=== PATIENT | female | born 1935 | race Caucasian/White ===

== ENCOUNTER 2016-05-03 14:11 | Emergency (ER) | payer OTHER ==
[2016-05-03 14:20] VITALS: TEMP 98.2; O2SAT 94
--- NOTE | 2016-05-03 15:39 | EDPHY ---
H & P Stated Complaint: bleeding R ant thigh;pt states may be varicosity & she may have bumped it Time Seen by Provider: 05/03/16 15:01 HPI/ROS: CHIEF COMPLAINT: Bleeding HISTORY OF PRESENT ILLNESS: The patient is a 80-year-old female who comes to the emergency department complaining small punctate bleeding to the anterior right thigh. She has a small varicosity at the site. She thinks she may have bumped it against something. She cannot get it to stop after holding pressure for an hour. In triage she was wrapped with Surgicel and is now stopped the bleeding. She does not take blood thinners. She has not had any recent illnesses. REVIEW OF SYSTEMS: Constitutional: denies: chills, fever, recent illness, recent injury EENTM: denies: blurred vision, double vision, nose congestion Respiratory: denies: cough, shortness of breath Cardiac: denies: chest pain, irregular heart rate, lightheadedness, palpitations Gastrointestinal/Abdominal: denies: abdominal pain, diarrhea, nausea, vomiting, blood streaked stools Genitourinary: denies: dysuria, frequency, hematuria, pain Musculoskeletal: denies: joint pain, muscle pain Skin: See HPI Neurological: denies: headache, numbness, paresthesia, tingling, dizziness, weakness Hematologic/Lymphatic: denies: blood clots, easy bleeding, easy bruising Immunologic/allergic: denies: HIV/AIDS, transplant EXAM: GENERAL: Well-appearing, well-nourished and in no acute distress. HEAD: Atraumatic, normocephalic. EYES: Pupils equal round and reactive to light, extraocular movements intact, sclera anicteric, conjunctiva are normal. ENT: TMs normal, nares patent, oropharynx clear without exudates. Moist mucous membranes. NECK: Normal range of motion, supple without lymphadenopathy or JVD. LUNGS: Breath sounds clear to auscultation bilaterally and equal. No wheezes rales or rhonchi. HEART: Regular rate and rhythm without murmurs, rubs or gallops. ABDOMEN: Soft, nontender, normoactive bowel sounds. No guarding, no rebound. No masses appreciated. BACK: No CVA tenderness, no spinal tenderness, step-offs or deformities EXTREMITIES: Normal range of motion, no pitting or edema. No clubbing or cyanosis. NEUROLOGICAL: Cranial nerves II through XII grossly intact. Normal speech, normal gait. 5/5 strength, normal movement in all extremities, normal sensation PSYCH: Normal mood, normal affect. SKIN: Small bruising abrasion from right anterior thigh over very small varicosity. Dressed with Surgicel and stop the restarted again once as remove the Surgicel. Source: Patient Exam Limitations: No limitations - Personal History Current Tetanus Diphtheria and Acellular Pertussis (TDAP): Yes - Medical/Surgical History Hx Asthma: No Hx Chronic Respiratory Disease: No Hx Diabetes: No Hx Cardiac Disease: No Hx Renal Disease: No Hx Cirrhosis: No Other PMH: cholesterol. HTN. depression - Family History Significant Family History: Hypertension - Social History Smoking Status: Never smoked Alcohol Use: None Drug Use: None Constitutional: Initial Vital Signs Temperature (C) 36.8 C 05/03/16 14:13 Heart Rate 61 05/03/16 14:13 Respiratory Rate 28 H 05/03/16 14:13 Blood Pressure 136/81 H 05/03/16 14:13 O2 Sat (%) 94 05/03/16 14:13 O2 Delivery Mode Room Air Allergies/Adverse Reactions: No Known Allergies Allergy (Verified 05/03/16 14:12) Home Medications: Medication Instructions Recorded Aspirin [Aspirin 81mg (*)] 81 mg PO DAILY 05/03/16 Metoprolol Tartrate [Lopressor 50 50 mg PO 05/03/16 mg (*)] Sertraline HCl [Zoloft 25mg (*)] 25 mg PO DAILY 05/03/16 Simvastatin [Zocor] 40 mg PO 05/03/16 Medical Decision Making ED Course/Re-evaluation: The patient's bleeding had stopped on tell I removed the Surgicel. We cleaned and redressed it. We discussed wound care and management and indications for returning. The patient is happy with this plan declines further workup and is eager to go home. Differential Diagnosis: Partial list of the Differential diagnosis considered include but were not limited to; abrasion, varicosity bleed, coagulopathy and although unlikely based on the history and physical exam, I also considered the medication reaction, infection. I discussed these differential diagnoses and the plan with the patient as well as the usual and expected course. The patient understands that the diagnosis is provisional and that in medicine we are not always correct and that further workup is often warranted. Usual and customary warnings were given. All of the patient's questions were answered. The patient was instructed to return to the emergency department should the symptoms at all worsen or return, otherwise to followup with the physician as we discussed. Departure - Departure Disposition: Home, Routine, Self-Care Clinical Impression: Abrasion Condition: Good Instructions: Abrasion (ED) Additional Instructions: Leave the dressing intact for at least 24 hours. Referrals: Altagracia Abdullahi MD [Primary Care Provider] - As per Instructions
[2016-05-03 16:56] VITALS: BP 134/76; PULSE 64; RESP 20
== END 2016-05-03 16:55 | disposition home or self-care (01) ==
DX: S70.311A Abrasion, right thigh, initial encounter (principal); I10 Essential (primary) hypertension; Z79.82 Long term (current) use of aspirin; X58.XXXA Exposure to other specified factors, initial encounter

== ENCOUNTER → 2016-06-27 | Outpatient (CLI) | payer OTHER ==
[~2016-06-27] MED LIST: GADOBUTROL 10 ML VIAL IVP ONE
[2016-06-27 14:05] LABS: CREATININE 0.7 mg/dL (0.6-1.0); GLOMERULAR FILTRATION RATE > 60
== END ==
LOC: FIMAGING 11:38
PROVIDERS: ATTEND Psychiatry & Neurology Neurology
DX: R26.0 Ataxic gait (principal); M47.12 Other spondylosis with myelopathy, cervical region; M50.322 Other cervical disc degeneration at C5-C6 level; M50.323 Other cervical disc degeneration at C6-C7 level; M54.9 Dorsalgia, unspecified; M48.06 Spinal stenosis, lumbar region; M47.894 Other spondylosis, thoracic region
CPT/HCPCS: 70553; 72141; 72146; 72148; A9585

== ENCOUNTER → 2016-12-21 | Outpatient (CLI) | payer OTHER | LOC: CIMAGING 14:21 | PROVIDERS: ATTEND Internal Medicine | DX: Z12.31 Encounter for screening mammogram for malignant neoplasm of breast (principal) | CPT/HCPCS: G0202 ==

== ENCOUNTER 2018-01-03 11:50 | Emergency (ER) | payer OTHER ==
--- NOTE | 2018-01-03 12:38 | EDPHY ---
H & P Stated Complaint: Right thigh pain Time Seen by Provider: 01/03/18 12:38 HPI/ROS: CHIEF COMPLAINT: Right thigh pain HISTORY OF PRESENT ILLNESS: The patient presents the ED with a 1 day history of right thigh pain. The patient denies any history of fall or trauma. She denies prior history of the symptoms. The patient's symptoms are worsened with palpation and movement. The patient denies any recent immobility. She denies prior history of PE or DVT. She denies any acute numbness or weakness. The patient denies any complaints of fever or additional acute medical issues. REVIEW OF SYSTEMS: A comprehensive 10 point review of systems is otherwise negative aside from elements mentioned in the history of present illness. Source: Patient - Personal History Current Tetanus/Diphtheria Vaccine: Yes - Medical/Surgical History Hx Asthma: No Hx Chronic Respiratory Disease: No Hx Diabetes: No Hx Cardiac Disease: No Hx Renal Disease: No Hx Cirrhosis: No Hx Alcoholism: No Other PMH: cholesterol. HTN. depression - Social History Smoking Status: Never smoked - Physical Exam Exam: General Appearance: Alert, no distress Eyes: Pupils equal and round no pallor or injection ENT, Mouth: Mucous membranes moist Respiratory: There are no retractions, lungs are clear to auscultation Cardiovascular: Regular rate and rhythm Gastrointestinal: Abdomen is soft and nontender, no masses, bowel sounds normal Neurological: A&O, normal motor function, normal sensory exam, normal cranial nerves Skin: Warm and dry, no rashes Musculoskeletal: No right calf tenderness appreciated, mild tenderness to palpation along the right quadriceps mechanism Extremities: symmetrical, full range of motion Constitutional: Initial Vital Signs Temperature (C) 36.6 C 01/03/18 11:53 Heart Rate 66 01/03/18 11:53 Respiratory Rate 18 01/03/18 11:53 Blood Pressure 160/72 H 01/03/18 11:53 O2 Sat (%) 94 01/03/18 11:53 O2 Delivery Mode Room Air Allergies/Adverse Reactions: No Known Allergies Allergy (Verified 01/03/18 11:58) Home Medications: Medication Instructions Recorded Aspirin [Aspirin 81mg (*)] 81 mg PO DAILY 05/03/16 Metoprolol Tartrate [Lopressor 50 50 mg PO 05/03/16 mg (*)] Sertraline HCl [Zoloft 25mg (*)] 25 mg PO DAILY 05/03/16 Simvastatin [Zocor] 40 mg PO 05/03/16 Medical Decision Making - Diagnostics Imaging Results: Imaging Impressions Extremity Venous Study 01/03/18 12:39 Impression: No deep venous thrombosis right leg. Findings and recommendations discussed with Emergency Department physician, Abdelrahman Elizondo at 13:15 hour, 01/03/2018. Final report concurs with initial preliminary interpretation. ED Course/Re-evaluation: The patient was taken for an ultrasound. It demonstrates no evidence of a DVT. The patient has brisk pulses noted clinically. She is neurologically intact. There is no clinical evidence of a cellulitis, abscess or septic arthritis. I do believe the patient is experiencing a myofascial strain. She will be discharged home with customary aftercare instructions and return precautions. Differential Diagnosis: Differential diagnosis considered includes cellulitis, abscess, DVT, arterial thrombosis Departure - Departure Disposition: Home, Routine, Self-Care Clinical Impression: Muscle strain, lower leg Qualifiers: Encounter type: initial encounter Laterality: right Qualified Code(s): S86.911A - Strain of unspecified muscle(s) and tendon(s) at lower leg level, right leg, initial encounter Condition: Good Instructions: Musculoskeletal Pain (ED) Additional Instructions: 1. Apply heating pack and ice for symptomatic treatment. 2. Tylenol and ibuprofen as needed for pain. 3. Return to the ED for markedly worsening pain, swelling, numbness, redness or other concerns. 4. Please follow up with Dr. Devine in 2 weeks for any ongoing symptoms. A repeat ultrasound may be indicated if your symptoms persist. Referrals: Carito Zamarripa MD [Primary Care Provider] - As per Instructions
[2018-01-03 13:27] VITALS: BP 128/60
== END 2018-01-03 13:39 | disposition home or self-care (01) ==
DX: S76.311A Strain of muscle, fascia and tendon of the posterior muscle group at thigh level, right thigh, initial encounter (principal); X58.XXXA Exposure to other specified factors, initial encounter; Y99.8 Other external cause status

== ENCOUNTER 2018-03-05 16:20 | Inpatient (IN) | payer OTHER ==
[2018-03-05] MEDS ORDERED: LIDOCAINE 4%/MENTHOL 1% PATCH TD ONE (17:41)
[2018-03-05] MEDS ORDERED: NS 1,000 ML IV ONE (17:43)
[2018-03-05] MEDS ORDERED: ONDANSETRON 4 MG/2 ML VIAL IVP ONE (17:48)
[2018-03-05] MEDS ORDERED: NS 2,300 ML IV ONE (17:56)
--- NOTE | 2018-03-05 18:00 | EDPHY ---
H & P Stated Complaint: surgical complication, abdomen Time Seen by Provider: 03/05/18 17:47 HPI/ROS: CHIEF COMPLAINT: Wound dehiscence and drainage HISTORY OF PRESENT ILLNESS: The patient is an 82-year-old female with a history of ovarian cancer and several abdominal surgeries. She was hospitalized 2 weeks ago for small-bowel obstruction and ended up having surgery for lysis of adhesions, partial omentectomy and ventral hernia repair. She was then discharged to the [facility]. 2 days ago she was followed up by Dr. Feliz' office. She had some drainage and had the the 2 lower addi removed and a Sia drain placed. He also started her on antibiotics. Will today her drainage has increased and has turned brown and foul smelling. She has not had a fever. Severity: Moderate Modifying factors: The none REVIEW OF SYSTEMS: Constitutional: denies: chills, fever, recent illness, recent injury EENTM: denies: blurred vision, double vision, nose congestion Respiratory: denies: cough, shortness of breath Cardiac: denies: chest pain, irregular heart rate, lightheadedness, palpitations Gastrointestinal/Abdominal: See HPI Genitourinary: denies: dysuria, frequency, hematuria, pain Musculoskeletal: denies: joint pain, muscle pain Skin: denies: lesions, rash, jaundice, bruising Neurological: denies: headache, numbness, paresthesia, tingling, dizziness, weakness Hematologic/Lymphatic: denies: blood clots, easy bleeding, easy bruising Immunologic/allergic: denies: HIV/AIDS, transplant 10 systems reviewed and negative except as noted EXAM: GENERAL: Well-appearing, well-nourished and in no acute distress. HEAD: Atraumatic, normocephalic. EYES: Pupils equal round and reactive to light, extraocular movements intact, sclera anicteric, conjunctiva are normal. ENT: TMs normal, nares patent, oropharynx clear without exudates. Moist mucous membranes. NECK: Normal range of motion, supple without lymphadenopathy or JVD. LUNGS: Breath sounds clear to auscultation bilaterally and equal. No wheezes rales or rhonchi. HEART: Regular rate and rhythm without murmurs, rubs or gallops. ABDOMEN: Wound open over last few cm, brownish foul-smelling drainage. The no erythema at the wound. Moderately diffuse tender abdomin. BACK: No CVA tenderness, no spinal tenderness, step-offs or deformities EXTREMITIES: Normal range of motion, no pitting or edema. No clubbing or cyanosis. NEUROLOGICAL: Cranial nerves II through XII grossly intact. Normal speech, normal gait. 5/5 strength, normal movement in all extremities, normal sensation , normal reflexes PSYCH: Normal mood, normal affect. SKIN: Warm, dry, normal turgor, no visible rashes or lesions. Source: Patient, Family, Old records - Personal History Current Tetanus/Diphtheria Vaccine: Unsure - Medical/Surgical History Hx Asthma: No Hx Chronic Respiratory Disease: No Hx Diabetes: No Hx Cardiac Disease: No Hx Renal Disease: No Hx Cirrhosis: No Hx Alcoholism: No Hx HIV/AIDS: No Hx Splenectomy or Spleen Trauma: No Other PMH: cholesterol. HTN. depression - Family History Significant Family History: No pertinent family hx - Social History Smoking Status: Never smoked Alcohol Use: None Drug Use: None Constitutional: Initial Vital Signs Temperature (C) 36.9 C 03/05/18 16:29 Heart Rate 71 03/05/18 16:29 Respiratory Rate 16 03/05/18 16:29 Blood Pressure 106/76 03/05/18 16:29 O2 Sat (%) 95 03/05/18 16:29 O2 Delivery Mode Nasal Cannula O2 (L/minute) 4 Allergies/Adverse Reactions: No Known Allergies Allergy (Verified 01/03/18 11:58) Home Medications: Medication Instructions Recorded Aspirin [Aspirin 81mg (*)] 81 mg PO HS 05/03/16 Simvastatin [Zocor] 40 mg PO HS 05/03/16 Docusate Sodium [Colace 100 MG (*)] 100 mg PO DAILY 02/18/18 Levothyroxine [Synthroid 25 mcg 25 mcg PO DAILY06 #0 02/18/18 (*)] Bupropion HBr [Aplenzin] 348 mg PO DAILY 02/20/18 Metoprolol Tartrate [Lopressor 100 100 mg PO BID 02/20/18 mg (*)] Multivitamins [Multivitamin (*)] 1 tab PO DAILY 02/20/18 Sertraline HCl [Zoloft 100mg (*)] 100 mg PO DAILY 02/20/18 Enoxaparin [Lovenox 40 MG (*)] 40 mg SC DAILY syr 02/26/18 Ondansetron Odt [Zofran Odt 4 mg 4 mg PO Q6HRS PRN tab 02/26/18 (*)] Acetaminophen [Tylenol 325mg (*)] 650 mg PO Q4 PRN 03/05/18 Herbals/Supplements -Info Only 1 ea PO DAILY 03/05/18 Melatonin [Melatonin 3 MG (*)] 3 mg PO HS 03/05/18 Sulfamethox/Tmp 800/160 mg 1 tab PO BID 03/05/18 [Bactrim Ds] traMADol [Ultram 50 mg (*)] 50 mg PO Q4 PRN 03/05/18 Medical Decision Making - Diagnostics Imaging Results: Imaging Impressions Abdomen CT 03/05/18 18:02 Impression: 1. Large right intraabdominal fluid collection with layering gas and fluid. Differential diagnosis includes abscess, contained bowel leak with succus in the peritoneal space, and less likely seroma. 2. No mechanical bowel obstruction or adynamic ileus. 3. New mild to moderate right hydronephrosis due to mass effect upon the distal right ureter by the fluid collection. 4. Extensive sigmoid diverticulosis. No acute diverticulitis. Findings discussed with the emergency department physician, Enrico Page MD on March 05, 2018 at 1957 hours. ED Course/Re-evaluation: The patient is a difficult IV stick. I placed a right IJ peripheral line with ultrasound guidance. Patient tolerated the procedure well. Lab work is being drawn. 8:00 p.m. I discussed the case again with Dr. Feliz who will review the images. He evaluated the patient previously. He recommends admission to the hospital service for comorbidities. He also requested Invanz. 8:02 p.m. I spoke with Dr. Johnson who will admit to the medical service. Differential Diagnosis: Partial list of the Differential diagnosis considered include but were not limited to; fistula, perforation, wound infection, dehiscence and although unlikely based on the history and physical exam, I also considered ischemia, dissection. - Data Points Laboratory Results: Laboratory Results 03/05/18 18:25 03/05/18 18:25 03/05/18 03/05/18 03/05/18 18:25 18:25 18:25 WBC 13.42 10^3/uL H 10^3/uL (3.80-9.50) RBC 3.12 10^6/uL L 10^6/uL (4.18-5.33) Hgb 9.6 g/dL L g/dL (12.6-16.3) Hct 28.9 % L % (38.0-47.0) MCV 92.6 fL fL (81.5-99.8) MCH 30.8 pg pg (27.9-34.1) MCHC 33.2 g/dL g/dL (32.4-36.7) RDW 14.5 % % (11.5-15.2) Plt Count 414 10^3/uL H 10^3/uL (150-400) MPV 9.6 fL fL (8.7-11.7) Neut % (Auto) Not Reported Lymph % (Auto) Not Reported [place] % (Auto) Not Reported Eos % (Auto) Not Reported Baso % (Auto) Not Reported Nucleat RBC Rel Count Not Reported Absolute Neuts (auto) Not Reported Absolute Lymphs (auto) Not Reported Absolute Monos (auto) Not Reported Absolute Eos (auto) Not Reported Absolute Basos (auto) Not Reported Absolute Nucleated RBC Not Reported Immature Gran % Not Reported Seg Neutrophils % 80.0 % % Band Neutrophils % 6.0 % % Lymphocytes % 9.0 % % Monocytes % 5.0 % % Eosinophils % 0.0 % % Basophils % 0.0 % % Metamyelocytes % 0.0 % % Myelocytes % 0.0 % % Promyelocytes % 0.0 % % Blast Cells % 0.0 % % Immature Gran # Not Reported Absolute Seg Neuts 10.74 10^3/uL H 10^3/uL (1.70-6.50) Absolute Band Neuts 0.81 10^3/uL H 10^3/uL (0.00-0.70) Absolute Lymphocytes 1.21 10^3/uL 10^3/uL (1.00-3.00) Absolute Monocytes 0.67 10^3/uL 10^3/uL (0.30-0.80) Absolute Eosinophils 0.00 10^3/uL L 10^3/uL (0.03-0.40) Absolute Basophils 0.00 10^3/uL L 10^3/uL (0.02-0.10) Absolute Metamyelocyte 0.00 10^3/mL 10^3/mL (0.00-0.00) Absolute Myelocytes 0.00 10^3/mL 10^3/mL (0.00-0.00) Absolute Promyelocytes 0.00 10^3/uL 10^3/uL (0.00-0.00) Absolute Plasma Cells 0.00 10^3/uL 10^3/uL (0.00-0.00) Nucleated RBCs 1.0 /100 WBC H /100 WBC (0-0) Absolute Blast Cells 0.00 10^3/uL 10^3/uL (0.00-0.00) Plasma Cells % 0.0 % % Platelet Estimate INCREASED H (ADEQ) Polychromasia 1+ H Hypochromasia 1+ H Oval Macrocytes 1+ H Echinocytes 1+ H PT 17.1 SEC H SEC (12.0-15.0) INR 1.38 H (0.83-1.16) APTT 32.4 SEC SEC (23.0-38.0) VBG Lactic Acid Sodium 131 mEq/L L mEq/L (135-145) Potassium 4.1 mEq/L mEq/L (3.3-5.0) Chloride 101 mEq/L mEq/L (97-110) Carbon Dioxide 26 mEq/l mEq/l (22-31) Anion Gap 4 mEq/L L mEq/L (6-14) BUN 16 mg/dL mg/dL (7-23) Creatinine 0.5 mg/dL L mg/dL (0.6-1.0) Estimated GFR > 60 Glucose 65 mg/dL L mg/dL (70-100) Calcium 7.6 mg/dL L mg/dL (8.5-10.4) Total Bilirubin 0.4 mg/dL mg/dL (0.1-1.4) 03/05/18 18:25 WBC RBC Hgb Hct MCV MCH MCHC RDW Plt Count MPV Neut % (Auto) Lymph % (Auto) [place] % (Auto) Eos % (Auto) Baso % (Auto) Nucleat RBC Rel Count Absolute Neuts (auto) Absolute Lymphs (auto) Absolute Monos (auto) Absolute Eos (auto) Absolute Basos (auto) Absolute Nucleated RBC Immature Gran % Seg Neutrophils % Band Neutrophils % Lymphocytes % Monocytes % Eosinophils % Basophils % Metamyelocytes % Myelocytes % Promyelocytes % Blast Cells % Immature Gran # Absolute Seg Neuts Absolute Band Neuts Absolute Lymphocytes Absolute Monocytes Absolute Eosinophils Absolute Basophils Absolute Metamyelocyte Absolute Myelocytes Absolute Promyelocytes Absolute Plasma Cells Nucleated RBCs Absolute Blast Cells Plasma Cells % Platelet Estimate Polychromasia Hypochromasia Oval Macrocytes Echinocytes PT INR APTT VBG Lactic Acid 1.4 mmol/L mmol/L (0.7-2.1) Sodium Potassium Chloride Carbon Dioxide Anion Gap BUN Creatinine Estimated GFR Glucose Calcium Total Bilirubin Medications Given: Hydromorphone HCl (Dilaudid) 0.2 - 0.4 mg IVP Q4HRS PRN PRN Reason: Pain, Severe Unable to Take PO Stop: 03/15/18 21:53 Last Admin: 03/05/18 22:13 Dose: 0.4 mg Sodium Chloride (Ns) 2,300 mls @ 383.3333 mls/hr 30 ml/kg infuse over 6 hr ( 2300 ml) IV EDNOW ONE PRN Reason: Protocol Stop: 03/05/18 23:55 Last Admin: 03/05/18 18:33 Dose: 2,300 mls Miscellaneous Information (Patch Removal) 1 ea TD DAILY21 JULIUS Stop: 09/01/18 20:59 Last Admin: 03/05/18 17:45 Dose: Not Given Discontinued Medications Hydromorphone HCl (Dilaudid) 0.5 mg IVP EDNOW ONE Stop: 03/05/18 20:01 Last Admin: 03/05/18 20:00 Dose: 0.5 mg Sodium Chloride (Ns) 1,000 mls @ 0 mls/hr IV EDNOW ONE; Wide Open PRN Reason: Protocol Stop: 03/05/18 17:44 Last Admin: 03/05/18 17:45 Dose: 1,000 mls Ertapenem 1 gm/ Sodium (Chloride) 100 mls @ 200 mls/hr IV EDNOW ONE PRN Reason: Protocol Stop: 03/05/18 19:05 Last Admin: 03/05/18 18:59 Dose: 100 mls Miscellaneous Medication (Icy Hot Lidocaine/Menthol 4%/1% Patch) 1 patch TD EDNOW ONE Stop: 03/05/18 17:42 Last Admin: 03/05/18 17:45 Dose: 1 patch Ondansetron HCl (Zofran) 4 mg IVP EDNOW ONE Stop: 03/05/18 17:49 Last Admin: 03/05/18 17:50 Dose: 4 mg Departure - Departure Disposition: [facility]patient Acute Clinical Impression: Surgical wound infection Condition: Fair
[2018-03-05] MEDS ORDERED: ERTAPENEM 1 GM in NS 100 ML IV ONE (18:36)
[2018-03-05 18:43] LABS: PLATELET COUNT 414 10^3/uL (150-400)
[2018-03-05 18:50] LABS: INR 1.38 (0.83-1.16); PROTIME(PATIENT) 17.1 SEC (12.0-15.0)
[2018-03-05] MEDS ORDERED: IOPAMIDOL (ISOVUE-300) 100 ML BTL ONE (18:52)
[2018-03-05] MEDS ORDERED: KETOROLAC 15 MG/1 ML SDV ONE (19:53)
[2018-03-05] MEDS ORDERED: HYDROmorphONE/DILAUDID 2 MG/ML INJ ONE (19:59)
[2018-03-05] MEDS ORDERED: HYDROmorphONE/DILAUDID 2 MG/ML INJ IVP ONE (20:00)
[2018-03-05] MEDS ORDERED: PATCH REMOVAL 1 EA PATCH TD SCH (21:00)
--- NOTE | 2018-03-05 21:18 | SOAPPROG ---
AJITH Progress Note Assessment/Plan: Assessment: 82-YEAR-OLD FEMALE 2 WEEKS STATUS POST SMALL BOWEL RESECTION AFTER SBO WITH EXTENSIVE ADHESIOLYSIS AND RESECTION PRESENTS NOW WITH THE WOUND DRAINAGE BUT CT REVEALS A DEEPER RIGHT FLANK ABSCESS PROBABLY ADJACENT TO PREVIOUS ANASTOMOSIS HEENT NONICTERIC WITHOUT ADENOPATHY CHEST CLEAR COR REGULAR RHYTHM ABDOMEN SOFT DISTENDED WITH A DRAINING MIDLINE INCISION WITH A ELIZABETH DRAIN. SHE FEELS FLUCTUANT IN THE RIGHT FLANK WITH SOME TENDERNESS BUT DOES HAVE BOWEL SOUNDS IMPRESSION INTRA-ABDOMINAL ABSCESS CAUSING A WOUND ABSCESS Plan: ANTIBIOTICS/NPO/IV FLUIDS AND PERCUTANEOUS ABSCESS DRAINAGE/ SHE MAY NEED SURGERY DEPENDING ON THE DRAINAGE FINDINGS 03/05/18 21:15 Objective: Vital Signs Temp Pulse Resp BP Pulse Ox 36.7 C 82 18 128/70 H 95 03/05/18 18:34 03/05/18 20:52 03/05/18 20:52 03/05/18 20:52 03/05/18 20:52 03/04/18 03/05/18 03/06/18 05:59 05:59 05:59 Intake Total 3500 Output Total 50 Balance 3450 PT 17.1 SEC (12.0-15.0) H 03/05/18 18:25 INR 1.38 (0.83-1.16) H 03/05/18 18:25 ICD10 Worksheet Patient Problems: Problems Problem Status Onset Surgical wound infection Acute Bowel obstruction Acute
[2018-03-05] MEDS ORDERED: PHYTONADIONE 10 MG in NS 50 ML IV ONE (21:36)
[2018-03-05] MEDS ORDERED: ONDANSETRON 4 MG/2 ML VIAL IVP PRN (21:38)
[2018-03-05] MEDS ORDERED: ONDANSETRON DISINTEGRATING 4 MG TAB PO PRN (21:54)
[2018-03-05] MEDS: HYDROmorphONE/DILAUDID 1 MG/ML INJ IVP PRN (22:13)
--- NOTE | 2018-03-05 22:32 | GHP ---
DATE OF ADMISSION: 03/05/2018 CHIEF COMPLAINT: Increasing wound drainage. HISTORY OF PRESENT ILLNESS: This is an 82-year-old female who has a history of ovarian cancer. She is 2 weeks postop from a bowel obstruction requiring a small laparotomy and small-bowel resection and hernia repair. She was discharged on the . She had been doing okay. She has had more abdomina l distention and drainage. She did see Dr. Feliz as an outpatient and a Sia drain was placed. A ntibiotics were started. Drainage has increased and it seems to be foul-smelling. She denies any fe vers. She has some mild abdominal pain. No nausea. She had decreased p.o. intake. No diarrhea. REVIEW OF SYSTEMS: A 10-point review of systems was obtained and was negative. PAST MEDICAL HISTORY: 1. Ovarian cancer status post multiple surgeries. 2. Hypertension. 3. Hyperlipidemia. 4. Hypothyroidism. 5. Depression. MEDICATIONS: Reviewed. SOCIAL HISTORY: No smoking. FAMILY HISTORY: Reviewed and noncontributory. PHYSICAL EXAMINATION: VITAL SIGNS: Afebrile, blood pressure is 128/70, heart rate 82, oxygen satura tion 95% on 4 L. GENERAL APPEARANCE: The patient is well developed, in no apparent distress. HEENT : Nonicteric sclerae. Extraocular movements intact. Moist mucous membranes. NECK: Supple. No th yromegaly. LUNGS: Good effort. Clear to auscultation bilaterally. CARDIOVASCULAR: Regular rate a nd rhythm. No murmurs or gallops. ABDOMEN: Midline incision in place, positive bowel sounds, soft, really not a lot of weight tenderness. There is an open drainage site in the lower abdominal wound with some purulent drainage. EXTREMITIES: No clubbing, cyanosis, or edema. SKIN: Without rash. D ry and intact. NEUROLOGIC: Alert and oriented x3. Moving all 4 extremities equally. PSYCHIATRIC: Normal mood and affect. PERTINENT LABORATORY AND X-RAY DATA: White blood cell count elevated at 13, hemoglobin is 9.6, and p latelets are 414. Lipase normal. Sodium a little bit low at 131. CT scan of the abdomen and pelvis shows a large intra-abdominal fluid collection which could possibly be an abscess, and new mild to m oderate right hydronephrosis due to mass effect of the fluid. ASSESSMENT AND PLAN: An 82-year-old female with a history of ovarian cancer status post recent small bowel resection due to small bowel obstruction presenting with increasing fluid collection. 1. Fluid collection: This could possibly be an abscess. There is increased purulent drainage. She does have an elevated white blood cell count. We will treat with IV Invanz. The plan will be for I nterventional Radiology to drain in the morning. We will wait follow up blood cultures. 2. History of ovarian cancer. 3. Right-sided hydronephrosis: Kidney function is normal. We will continue to monitor. Fluid is r emoved. /[id number]/MODL
[2018-03-06] MEDS: D5W 1/2 NS W/ 20 KCl/L 1,000 ML IV SCH ×2 (00:33→18:03)
[2018-03-06] MEDS: FLUCONAZOLE/NaCl 100 ML IV SCH ×2 (00:57→22:44)
[2018-03-06] MEDS: HYDROmorphONE/DILAUDID 1 MG/ML INJ IVP PRN ×3 (03:17→16:42)
[2018-03-06 04:46] LABS: PLATELET COUNT 418 10^3/uL (150-400)
[2018-03-06] MEDS ORDERED: ERTAPENEM 1 GM in NS 100 ML IV SCH (09:00)
[2018-03-06] MEDS ORDERED: MIDAZOLAM 2 MG/2 ML VIAL IVP PRN (09:53)
[2018-03-06] MEDS ORDERED: fentaNYL 100 MCG/2 ML INJ IVP PRN (09:53)
[2018-03-06] MEDS ORDERED: GLUCAGON HCL 1 MG VIAL IVP PRN (09:53)
[2018-03-06] MEDS ORDERED: MEPERIDINE 25 MG/ML SYR IVP PRN (09:53)
[2018-03-06] MEDS ORDERED: NALOXONE HCL 0.4 MG/ML INJ IVP PRN (09:53)
[2018-03-06] MEDS ORDERED: FLUMAZENIL 0.5 MG/5 ML MDV IVP PRN (09:53)
[2018-03-06] MEDS ORDERED: NS 1,000 ML IV SCH (10:00)
[2018-03-06] MEDS ORDERED: traMADol 50 MG TAB PO PRN (11:38)
--- NOTE | 2018-03-06 12:17 | PDPROPOC ---
Sedation Plan of Care ASA Classification: ASA 3 Mallampati Score: Class 2 Mallampati Reference Image:
--- NOTE | 2018-03-06 12:19 | PDRADPN ---
Radiology Procedure Note Date of Procedure: 03/06/18 Radiologist: Raman Willard Anesthesia: IV Sedation Pre-op Diagnosis: RLQ abscess Post-op Diagnosis: Same Procedure: CT guided drain placement Finding(s): 10F drain placed in collection, feculent material aspirated Inf/Abcess present in the surg proc area at time of surgery?: Yes Depth: Deep Incisional (Fascial)
[2018-03-06] MEDS ORDERED: ALTEPLASE 2 MG VIAL IVP PRN (13:17)
--- NOTE | 2018-03-06 14:33 | PDMN ---
Medical Necessity Medical necessity: MCG MGSIC Systemic or Infectious Condition: 82 yo w/ recent SBO surgery (resection) 2nd ovarian ca, presents w/ fluid collection, possibly abscess and increased purulent drainage to surgical site. WBC elevated, IR consulted, drain placement completed and feculent material aspirated. Pt will cont on IV antibx and IV antifungals and IVF, wound and BC pending, ID consult ordered, PT/OT evals ordered, cont to monitor labs, pt will require>2MN for ongoing monitoring and tx of the above. Hx ovarian ca s/p multi surgeries, HTN , HLD
--- NOTE | 2018-03-06 15:09 | SOAPPROG ---
AJITH Progress Note Assessment/Plan: Assessment: 82-YEAR-OLD FEMALE 2 WEEKS STATUS POST SMALL BOWEL RESECTION AFTER SBO WITH EXTENSIVE ADHESIOLYSIS AND RESECTION PRESENTS NOW WITH THE WOUND DRAINAGE BUT CT REVEALS A DEEPER RIGHT FLANK ABSCESS PROBABLY ADJACENT TO PREVIOUS ANASTOMOSIS HEENT NONICTERIC WITHOUT ADENOPATHY CHEST CLEAR COR REGULAR RHYTHM ABDOMEN SOFT DISTENDED WITH A DRAINING MIDLINE INCISION WITH A ELIZABETH DRAIN. SHE FEELS FLUCTUANT IN THE RIGHT FLANK WITH SOME TENDERNESS BUT DOES HAVE BOWEL SOUNDS IMPRESSION INTRA-ABDOMINAL ABSCESS CAUSING A WOUND ABSCESS Plan: ANTIBIOTICS/NPO/IV FLUIDS AND PERCUTANEOUS ABSCESS DRAINAGE/ SHE MAY NEED SURGERY DEPENDING ON THE DRAINAGE FINDINGS 03/05/18 21:15 03/06/18 15:06 OR COMFORTABLE THIS A.M./VITAL SIGNS STABLE/AFEBRILE CONTINUED WOUND DRAINAGE REQUIRING FREQUENT DRESSING CHANGES WBC 10 K /HEMATOCRIT 28 CT-GUIDED DRAINAGE DEPENDING/RISKS AND OPTIONS FULLY DISCUSSED/ SHE IS STILL VERY LIKELY TO NEED SURGERY FOR CORRECTION OF THE PROBLEM BUT DRAINAGE IN CONTROL OF HER SEPSIS IS DESIRABLE 1ST/WILL ORDER A PICC LINE AND TPN Objective: Vital Signs Temp Pulse Resp BP Pulse Ox 36.7 C 89 14 129/58 H 94 03/06/18 13:08 03/06/18 15:05 03/06/18 15:05 03/06/18 15:05 03/06/18 15:05 Microbiology 03/06/18 01:15 Gram Stain - Final Abdomen - Swab Laboratory Results 03/06/18 03:56 03/06/18 03:56 03/05/18 03/06/18 03/07/18 05:59 05:59 05:59 Intake Total 650 Output Total 550 80 Balance 100 -80 PT 17.1 SEC (12.0-15.0) H 03/05/18 18:25 INR 1.38 (0.83-1.16) H 03/05/18 18:25 ICD10 Worksheet Patient Problems: Problems Problem Status Onset Surgical wound infection Acute Bowel obstruction Acute
--- NOTE | 2018-03-06 15:33 | HOSPPROG ---
Hospitalist Progress Note Assessment/Plan: * Intra-abdominal abscess s/o IR drain -feculent material - suspect anastomotic leak -IV ceftriaxone, IV flagyl, IV diflucan -Dr. Feliz following * Klebsiella sepsis - leukocytosis/tachycardia with acute respiratory failure -consult ID * Ovarian cancer s/p recent SBO with SB resection * Acute respiratory failure -up to 12L O2, RR 24, mod respiratory distress -check stat CXR -transfer to SDU for closer monitoring CC time - 45 minutes Subjective: no new complaints. Objective: Vital Signs Temp Pulse Resp BP Pulse Ox 36.7 C 89 14 129/58 H 94 03/06/18 13:08 03/06/18 15:05 03/06/18 15:05 03/06/18 15:05 03/06/18 15:05 Microbiology 03/06/18 01:15 Gram Stain - Final Abdomen - Swab Laboratory Results 03/06/18 03:56 03/06/18 03:56 03/05/18 03/06/18 03/07/18 05:59 05:59 05:59 Intake Total 650 Output Total 550 80 Balance 100 -80 PT 17.1 SEC (12.0-15.0) H 03/05/18 18:25 INR 1.38 (0.83-1.16) H 03/05/18 18:25 using IV dilaudid for pain CT abd - positive for abscess - Physical Exam Constitutional: no apparent distress, appears nourished, not in pain Cardiovascular: regular rate and rhythym, no murmur, rub, or gallop Respiratory: no respiratory distress, no rales or rhonchi, clear to auscultation Gastrointestinal: normoactive bowel sounds, soft, non-tender abdomen, no palpable masses, distension, other (draining feculent material) Skin: no rashes or abrasions, no fluctuance, no induration Neurologic: AAOx3, sensation intact bilaterally Psychiatric: interacting appropriately, not anxious, not encephalopathic, thought process linear ICD10 Worksheet Patient Problems: Problems Problem Status Onset Surgical wound infection Acute Bowel obstruction Acute
[2018-03-06] MEDS ORDERED: D10W 1,000 ML IV PRN (16:16)
[2018-03-06 17:07] LABS: PLATELET COUNT 369 10^3/uL (150-400)
--- NOTE | 2018-03-06 17:17 | SOAPPROG ---
AJITH Progress Note Assessment/Plan: Assessment: 82-YEAR-OLD FEMALE 2 WEEKS STATUS POST SMALL BOWEL RESECTION AFTER SBO WITH EXTENSIVE ADHESIOLYSIS AND RESECTION PRESENTS NOW WITH THE WOUND DRAINAGE BUT CT REVEALS A DEEPER RIGHT FLANK ABSCESS PROBABLY ADJACENT TO PREVIOUS ANASTOMOSIS HEENT NONICTERIC WITHOUT ADENOPATHY CHEST CLEAR COR REGULAR RHYTHM ABDOMEN SOFT DISTENDED WITH A DRAINING MIDLINE INCISION WITH A ELIZABETH DRAIN. SHE FEELS FLUCTUANT IN THE RIGHT FLANK WITH SOME TENDERNESS BUT DOES HAVE BOWEL SOUNDS IMPRESSION INTRA-ABDOMINAL ABSCESS CAUSING A WOUND ABSCESS Plan: ANTIBIOTICS/NPO/IV FLUIDS AND PERCUTANEOUS ABSCESS DRAINAGE/ SHE MAY NEED SURGERY DEPENDING ON THE DRAINAGE FINDINGS 03/05/18 21:15 03/06/18 15:06 OR COMFORTABLE THIS A.M./VITAL SIGNS STABLE/AFEBRILE CONTINUED WOUND DRAINAGE REQUIRING FREQUENT DRESSING CHANGES WBC 10 K /HEMATOCRIT 28 CT-GUIDED DRAINAGE DEPENDING/RISKS AND OPTIONS FULLY DISCUSSED/ SHE IS STILL VERY LIKELY TO NEED SURGERY FOR CORRECTION OF THE PROBLEM BUT DRAINAGE IN CONTROL OF HER SEPSIS IS DESIRABLE 1ST/WILL ORDER A PICC LINE AND TPN 03/06/18 17:14 SUCCESSFUL DRAINAGE OF THICK PURULENT MATERIAL FROM RIGHT FLANK/PATIENT FEELS BETTER AND REMAINS AFEBRILE/HOWEVER BLOOD CULTURES ARE POSITIVE/SOME INCREASED OXYGEN NEEDS/CHEST X-RAY MAY SHOW RIGHT PLEURAL EFFUSION SHE STILL VERY LIKELY WILL NEED SURGERY BUT HOPEFULLY THIS WILL CONTROL HER INFECTION A MAKER BETTER FOR EVENTUAL SURGERY 03/06/18 17:16 Objective: Vital Signs Temp Pulse Resp BP Pulse Ox 37.0 C 101 H 20 141/66 H 92 03/06/18 16:53 03/06/18 16:53 03/06/18 16:53 03/06/18 16:53 03/06/18 16:53 Microbiology 03/06/18 01:15 Gram Stain - Final Abdomen - Swab Laboratory Results 03/06/18 16:51 03/05/18 03/06/18 03/07/18 05:59 05:59 05:59 Intake Total 650 Output Total 550 320 Balance 100 -320 PT 17.1 SEC (12.0-15.0) H 03/05/18 18:25 INR 1.38 (0.83-1.16) H 03/05/18 18:25 ICD10 Worksheet Patient Problems: Problems Problem Status Onset Surgical wound infection Acute Bowel obstruction Acute
[2018-03-06 17:30] LABS: INR 1.21 (0.83-1.16); PROTIME(PATIENT) 15.5 SEC (12.0-15.0)
[2018-03-06] MEDS: PIPERACILLIN/TAZO 3.375 GM/DEX 50 ML IV SCH (19:45)
[2018-03-06] MEDS: ATORVASTATIN CALCIUM 20 MG TAB PO SCH (20:05)
[2018-03-06] MEDS: METOPROLOL TARTRATE 100 MG TAB PO SCH (20:05)
[2018-03-06] MEDS: MELATONIN 3 MG TAB PO SCH (20:05)
--- NOTE | 2018-03-06 20:43 | ASMTCMCOM ---
CM Note CM Note Notes: Reviewed chart. Pt admitted for fluid collection and right sided hydronephrosis. 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 Pt was admitted from [facility]. Spoke with pt's dghtr Yany Tinajero . Per Yany, [facility] is holding a bed for the pt. [facility], spoke with Josy, Housing Officer on Duty. Per Josy, is holding pt's bed "unofficially" d/t low census. Per Janina, the deckhand oyster dredge, [facility] will continue to hold pt's bed until they need it for another pt. Family is not being charged for the bed hold and will notify Yany when/if they need the room. Update provided to Yany. Discharge plan remains unclear. Pt transferred to SDU this evening secondary to increased oxygen demands. Call placed to Yany with an update. CM will continue to follow. Discharge Plan: [facility] Date Signed: 03/06/2018 08:42 PM Electronically Signed By:Nella Canas RN
[2018-03-06] MEDS ORDERED: ASPIRIN 81 MG CHEWABLE TAB PO SCH (21:00)
[2018-03-07] MEDS: PIPERACILLIN/TAZO 3.375 GM/DEX 50 ML IV SCH ×4 (00:10→17:41)
[2018-03-07] MEDS: LEVOTHYROXINE 25 MCG TAB PO SCH (05:22)
[2018-03-07] MEDS: D5W 1/2 NS W/ 20 KCl/L 1,000 ML IV SCH ×2 (05:33→18:22)
[2018-03-07 05:45] LABS: PLATELET COUNT 388 10^3/uL (150-400)
[2018-03-07 05:52] LABS: INR 1.25 (0.83-1.16); PROTIME(PATIENT) 15.9 SEC (12.0-15.0)
[2018-03-07] MEDS: HYDROmorphONE/DILAUDID 1 MG/ML INJ IVP PRN (07:36)
[2018-03-07] MEDS: oxyCODONE IR 5 MG TAB PO PRN ×2 (08:12→23:37)
[2018-03-07] MEDS: SERTRALINE HCL 100 MG TAB PO SCH (08:13)
[2018-03-07] MEDS: METOPROLOL TARTRATE 100 MG TAB PO SCH ×2 (08:13→20:26)
[2018-03-07] MEDS ORDERED: ENOXAPARIN 40 MG/0.4 ML SYR SC SCH (09:00)
--- NOTE | 2018-03-07 10:30 | SOAPPROG ---
AJITH Progress Note Assessment/Plan: Assessment: 82 y/o F s/p recent open small bowel resection, partial omentectomy, and JUAN JOSE last hospitalization Now admitted with deep right flank abscess. S/p percutaneous drainage with thick purulent material S: Sitting up in chair. Feeling better today. Tolerating a regular diet and having BMs. O: Alert Afebrile VSS RRR No increased WOB Abdomen: soft, slightly ttp, superficial wound at inferior aspect of incision with nicol drain in place. Ostomy appliance over nicol with purulent drainage. Deeper JULISSA drain with seropurulent drainage. Plan: Pt will need surgery to fully clean out abscess. Will wait until later this week when she is stronger. 03/07/18 10:31 Objective: Vital Signs Temp Pulse Resp BP Pulse Ox 36.4 C 77 23 H 121/52 H 94 03/07/18 07:12 03/07/18 08:13 03/07/18 07:12 03/07/18 08:13 03/07/18 07:12 Microbiology 03/06/18 11:45 Gram Stain - Final Abdomen - Aspirate 03/06/18 01:15 Gram Stain - Final Abdomen - Swab Laboratory Results 03/07/18 05:30 03/07/18 05:30 03/06/18 03/07/18 03/08/18 05:59 05:59 05:59 Intake Total 650 2634 Output Total 550 1345 Balance 100 1289 PT 15.9 SEC (12.0-15.0) H 03/07/18 05:30 INR 1.25 (0.83-1.16) H 03/07/18 05:30 ICD10 Worksheet Patient Problems: Problems Problem Status Onset Surgical wound infection Acute Bowel obstruction Acute
[2018-03-07] MEDS: BUPROPION HBR PO SCH (12:15)
[2018-03-07] MEDS: ONDANSETRON 4 MG/2 ML VIAL IVP PRN ×2 (12:15→16:28)
--- NOTE | 2018-03-07 14:13 | GCON ---
INFECTIOUS DISEASE CONSULTATION DATE OF CONSULTATION: 03/07/2018 REFERRING PHYSICIAN: Dorina Reynolds MD REASON FOR CONSULTATION: Intraabdominal abscess. HISTORY OF PRESENT ILLNESS: Patient is an 82-year-old female with a past medical history of ovarian cancer and small bowel obstruction who I am asked to see in consultation for intraabdominal abscess. Patient had undergone surgery for a small bowel obstruction on 02/19/2018, where she had lysis of ad hesions and small bowel resection measuring approximately 1 foot with irfv-hy-dgab anastomosis. Miroslava ent describes developing drainage from her wound several days postoperatively. She describes this as being "icky" with malodor. There was noted to be erythema around the incision as well. On 03/02/20 18, she had some old hematoma removed and Sia drain placed by Dr. Feliz. She received treatment with oral Bactrim. Patient continued to have purulent drainage, prompting CT scan of the abdomen and pelvis, which revealed a large right intraabdominal fluid collection with gas present measuring 11 x 6 cm x 12 cm. This was contiguous with anastomotic site. Patient subsequently had interventional radiology guided drainage of abscess with return of feculent material. Gram stain of the specimen showed 4+ gram-negative rods, 4+ gram-positive rods, and 1+ gra m-positive cocci with culture currently pending. 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 The patient also had blood cultures obtained at time of presentation and 1 o f 2 sets shows Klebsiella oxytoca. Patient has been receiving antibiotic therapy and currently is on Zosyn, metronidazole and fluconazole. She notes that she feels improved post abscess drainage. She describes having malaise and fatigue pr ior to hospitalization, but no guy fever or chills. She was also having nausea without vomiting or diarrhea. She did note abdominal pain. Ultimately plans are in place for surgical revision given c oncern of anastomotic leak. Based on the above findings, I am now asked to assist in her ongoing man agement. PAST MEDICAL HISTORY: Ovarian cancer, hypertension, alcoholism (has not been drinking for approximat gia 8 years), depression, hyperlipidemia, sleep apnea. PAST SURGICAL HISTORY: Left knee replacement, multiple surgeries for ovarian cancer, as above. CURRENT MEDICATIONS: Zosyn 3.375 g IV q.6 h., metronidazole 500 mg IV q.8 h., fluconazole 200 mg IV daily, aspirin 81 mg p.o. q.h.s., Lipitor 20 mg p.o. q.h.s., Colace 100 mg p.o. daily, Lovenox 40 mg subcu daily, Dilaudid as needed, Synthroid 25 mcg p.o. daily, melatonin 3 mg p.o. q.h.s., Lopressor 1 00 mg p.o. b.i.d., bupropion 348 mg p.o. daily, TPN, Zoloft 100 mg p.o. daily. ALLERGIES: No known drug allergies. SOCIAL HISTORY: Patient is a former smoker with history of alcoholism, without active alcohol intake . No history of drug use. FAMILY HISTORY: Depression, Alzheimer disease. REVIEW OF SYSTEMS: Outside that noted in the HPI, the remainder of 10-system review is unremarkable. PHYSICAL EXAMINATION: VITAL SIGNS: Temperature 36.4, heart rate 77, respiratory rate 23, blood pres sure 121/52, oxygen saturation 94% on 2 L. GENERAL: Patient is an obese female who appears chronica lly ill. She appears nontoxic. HEENT: There is no scleral icterus, conjunctival injection, or conj unctival petechiae. Oropharynx shows dry mucous membranes with no thrush. Dentition in fair repair. There is no nasal discharge. There is no tenderness over the frontal, maxillary, or mastoid area. NECK: Supple without lymphadenopathy or palpable thyromegaly. Right EJ IV is in place. CHEST: Cl ear to auscultation bilaterally without adventitious sounds. Respiratory effort is normal. CARDIOVA SCULAR: Regular rate and rhythm without murmurs, gallops, or rubs. ABDOMEN: Soft, tender in the ri [facility] lower quadrant with mild fullness; staple line is intact, except for ostomy bag over lower portio n with feculent drainage; JULISSA bulb was in place with feculent drainage. Bowel sounds are hypoactive. MUSCULOSKELETAL: 1+ lower extremity edema bilaterally. Well-healed incision over left knee without erythema or drainage. SKIN: No rashes present. No stigmata of endocarditis. Skin is warm and dry to touch. NEUROLOGIC: Patient is alert and interacts appropriately with examiner. Cranial nerves 2-12 are grossly intact. Muscle tone and bulk are normal. LABORATORY/IMAGING: White blood cell count 7.0, hematocrit 26.0, platelets 388, neutrophils 78%. Se rum creatinine 0.4. Bilirubin 0.4, AST 18, ALT 23, alkaline phosphatase 63, albumin 1.8. INR is 1.3 . Blood cultures from 03/05/2018 showing 1 of 2 sets with Klebsiella oxytoca. Abdominal wound cultu re showing lactose fermenting gram-negative rods. Abdominal abscess with polymicrobial Gram stain an d culture pending as outlined in the history of present illness. Imaging as outlined in history of present illness, which has been reviewed and interpreted by me jean paul christianson IMPRESSION: Klebsiella oxytoca bacteremia, secondary to intraabdominal abscess, post small bowel obs truction requiring laparotomy and resection of small bowel with anastomosis with concern for underlyi ng anastomotic leak: The patient has undergone percutaneous drainage of intraabdominal abscess with culture showing polymicrobial anshul and material being feculent in etiology. Typical enteric anshul w ould be expected in this circumstance. Will continue Zosyn, which will provide good activity against Klebsiella, as well as other intraabdominal pathogens, including anaerobes. Will discontinue metron idazole given the anaerobic activity present with Zosyn. We will continue fluconazole given risk for the presence of yeast. Surgical plans outlined probable repeat operative intervention as patient im proves clinically post abscess drainage given concerns of anastomotic leak. RECOMMENDATIONS: 1. Agree with Zosyn 3.375 g IV q.6 h. 2. Continue fluconazole 200 mg IV daily. 3. Discontinue metronidazole. 4. Await susceptibility profile on Klebsiella. 5. Follow up abscess cultures as available. 6. Thank you for this consultation. We will continue to follow the patient with you. /[id number]/LEAL
--- NOTE | 2018-03-07 16:13 | HOSPPROG ---
Hospitalist Progress Note Assessment/Plan: * Intra-abdominal abscess s/p IR drain -feculent material - suspect anastomotic leak -IV Zosyn, IV diflucan -surgery with Dr. Feliz pending * Klebsiella sepsis - leukocytosis/tachycardia with acute respiratory failure -sepsis physiology improved today * Ovarian cancer s/p recent SBO with SB resection * Acute respiratory failure -resp status improved today Subjective: Stool coming out of abdominal drain Objective: Vital Signs Temp Pulse Resp BP Pulse Ox 37.4 C 84 26 H 132/56 H 93 03/07/18 15:49 03/07/18 15:49 03/07/18 15:49 03/07/18 15:49 03/07/18 15:49 Microbiology 03/06/18 11:45 Mycobacterial Smear (UZAIR) - Final Abdomen - Aspirate 03/06/18 11:45 Gram Stain - Final Abdomen - Aspirate 03/06/18 01:15 Gram Stain - Final Abdomen - Swab Laboratory Results 03/07/18 05:30 03/07/18 05:30 03/06/18 03/07/18 03/08/18 05:59 05:59 05:59 Intake Total 650 2634 Output Total 550 1345 150 Balance 100 1289 -150 PT 15.9 SEC (12.0-15.0) H 03/07/18 05:30 INR 1.25 (0.83-1.16) H 03/07/18 05:30 d/w Dr. Morrissey regarding antibiotic plan tele reviewed - NSR - Physical Exam Constitutional: no apparent distress, appears nourished, not in pain Cardiovascular: regular rate and rhythym, no murmur, rub, or gallop Respiratory: no respiratory distress, no rales or rhonchi, clear to auscultation Gastrointestinal: normoactive bowel sounds, soft, non-tender abdomen, no palpable masses Skin: no rashes or abrasions, no fluctuance, no induration Neurologic: AAOx3, sensation intact bilaterally Psychiatric: interacting appropriately, not anxious, not encephalopathic, thought process linear ICD10 Worksheet Patient Problems: Problems Problem Status Onset Bowel obstruction Acute Surgical wound infection Acute
[2018-03-07] MEDS: MELATONIN 3 MG TAB PO SCH (20:26)
[2018-03-07] MEDS: ATORVASTATIN CALCIUM 20 MG TAB PO SCH (20:26)
[2018-03-07] MEDS: TPN W/ FAMOTIDINE 1 EA BAG IV SCH (21:01)
[2018-03-07] MEDS: FLUCONAZOLE/NaCl 100 ML IV SCH (21:11)
[2018-03-08] MEDS: PIPERACILLIN/TAZO 3.375 GM/DEX 50 ML IV SCH ×2 (00:15→05:42)
[2018-03-08] MEDS: HYDROmorphONE/DILAUDID 1 MG/ML INJ IVP PRN ×3 (00:20→11:53)
[2018-03-08 04:54] LABS: INR 1.36 (0.83-1.16); PROTIME(PATIENT) 16.9 SEC (12.0-15.0)
[2018-03-08] MEDS: LEVOTHYROXINE 25 MCG TAB PO SCH (05:41)
[2018-03-08] MEDS: METOPROLOL TARTRATE 100 MG TAB PO SCH ×2 (09:55→21:00)
[2018-03-08] MEDS: SERTRALINE HCL 100 MG TAB PO SCH (09:55)
[2018-03-08] MEDS: BUPROPION HBR PO SCH (09:56)
[2018-03-08] MEDS: ONDANSETRON 4 MG/2 ML VIAL IVP PRN (09:57)
--- NOTE | 2018-03-08 10:15 | PDINTPN ---
Command And Control Progress Note Assessment/Plan: ASSESSMENT 82 F with h/o ovarian cancer with SBO s/p small bowel resection JUAN JOSE, partial omentectomy and ventral hernia repair 02/19/18 now admitted with pelvic abscess s/p percutaneous drain 03/06/18 draining feculent material. # pelvis abscess # klebsiella bacteremia # protein calorie malnutrition # Ovarian Cancer # Acute Respiratory failure, improving PLAN # continue Zosyn and Flagyl # CT w intradrain contrast today # TPN started 03/08/18 # Surgical Management per Dr Feliz # # Feeding - NPO # Analgesia APAP, fentanyl # Sedation propofol # Thromboprophylaxis - SQ hep # Head of bed elevated # Ulcer prophylaxis - H2 avril # Glucose SSI # Skin no skin breakdown # Delirium - delirium precautions ABX zosyn, fluconazole EVENTS 01/29/18 intubation, bronchoscopy CX Data 03/05/18 18:15 Blood Cx 1/2: Klebsiella Oxytoca and GPC 03/06/18 11:45 Abdomen aspirate: Klebsiella Oxytoca & Gram Neg Damien Nonlactose Ferm. 03/06/18 01:15 Abdomen wound: Klebsiella Oxytoca & Gram Positive Cocci IMAGING reviewed 03/08/18 12:42 Subjective: Started TPN yesterday, WBC continues to trend down, mild improvement in abdominal pain. Still on D5W. No new fevers, chills, nausea, vomiting, rash, chest pain or shortness fo breath. Objective: Vital Signs Temp Pulse Resp BP Pulse Ox 37.6 C 86 17 126/57 H 97 03/08/18 07:27 03/08/18 09:55 03/08/18 07:27 03/08/18 07:27 03/08/18 07:27 Microbiology 03/06/18 01:15 Gram Stain - Final Abdomen - Swab 03/06/18 11:45 Gram Stain - Final Abdomen - Aspirate 03/06/18 11:45 Mycobacterial Smear (UZAIR) - Final Abdomen - Aspirate Laboratory Results 03/07/18 05:30 03/08/18 04:15 03/07/18 03/08/18 03/09/18 05:59 05:59 05:59 Intake Total 2634 2671 Output Total 1345 1395 Balance 1289 1276 PT 16.9 SEC (12.0-15.0) H 03/08/18 04:15 INR 1.36 (0.83-1.16) H 03/08/18 04:15 Physical Exam - Physical Exam General Appearance: WD/WN, alert, no apparent distress EENT: PERRL/EOMI, normal ENT inspection Neck: full range of motion, supple, normal inspection Respiratory: chest non-tender, lungs clear, normal breath sounds Cardiac/Chest: normal peripheral pulses, regular rate, rhythm Abdomen: other (Pelvic drain in place draining fecal material. Mild tenderness to palpation) Skin: normal color, warm/dry Neuro/Psych: no motor/sensory deficits, alert, oriented x 3 ICD10 Worksheet Patient Problems: Problems Problem Status Onset Surgical wound infection Acute Bowel obstruction Acute
--- NOTE | 2018-03-08 10:20 | PCMIDPN ---
Assessment/Plan: # Klebsiella bacteremia from pelvic abscess. Feculent material remains in JULISSA. Recent ex lap, small bowel resection, JUAN JOSE, partial omentectomy,ventral hernia repair 02/19/18. Would cx also growing GPC and Aspirate growing non lactose fermenting gram-negative damien. WBC improved, AF --leave on Zosyn for now in light of GPC for enterococcal coverage and increase dose for pseudomonal coverage, CrCl 59 --may need repeat surgery for management of infection, but will discuss with Dr. Feliz. He has ordered repeat CT meds zosyn 3.375gm IV q6h#2 fluconazole 200mg IV daily #3 Microbiology 03/05/18 18:15 Blood Cx 04/06: Klebsiella Oxytoca and GPC 03/06/18 11:45 Abdomen aspirate: Klebsiella Oxytoca & Gram Neg Damien Nonlactose Ferm. 03/06/18 01:15 Abdomen wound: Klebsiella Oxytoca & Gram Positive Cocci Subjective: no events overnight Objective: Vital Signs Temp Pulse Resp BP Pulse Ox 37.6 C 86 17 126/57 H 97 03/08/18 07:27 03/08/18 09:55 03/08/18 07:27 03/08/18 07:27 03/08/18 07:27 Microbiology 03/06/18 01:15 Gram Stain - Final Abdomen - Swab 03/06/18 11:45 Gram Stain - Final Abdomen - Aspirate 03/06/18 11:45 Mycobacterial Smear (UZAIR) - Final Abdomen - Aspirate Laboratory Results 03/07/18 05:30 03/08/18 04:15 03/07/18 03/08/18 03/09/18 05:59 05:59 05:59 Intake Total 2634 2671 Output Total 1345 1395 Balance 1289 1276 Gen: pale, chr ill appearing, sleepy but appropriate w questioning. Daughter at bedside HEENT: dry MM CV: RRR Chest: shallow inspirations, no crackles or wheezes Abd: soft, ostomy L lower, somewhat midline; JULISSA with feculent material (620cc/ 24hours), midline incision, mild pinkness distally, no drainage; decreased bowel sounds; no peritoneal signs Skin : no rash RUE PICC, mild associated arm swelling; TPN running - Time Spent With Patient Time Spent with Patient: greater than 35 minutes Time Spent with Patient: Greater than 35 minutes spent on this patients care, greater than 50% of time spent counseling, educating, and coordinating care regarding the above mentioned plan. ICD10 Worksheet Patient Problems: Problems Problem Status Onset Surgical wound infection Acute Bowel obstruction Acute
[2018-03-08] MEDS ORDERED: IOPAMIDOL (ISOVUE-300) 100 ML BTL ONE (10:46)
[2018-03-08] MEDS ORDERED: D50W 25 GM/50 ML SYR IVP PRN (11:07)
[2018-03-08] MEDS: PIPERACILLIN/TAZO 4.5 GM/DEX 100 ML IV SCH ×2 (11:55→17:44)
--- NOTE | 2018-03-08 12:10 | ASMTCMCOM ---
CM Note CM Note Notes: Pt discussed in rounds. Awaiting results of scan of abdomen. Pt's dtr at bedside and appropriately supportive. PT recommends SNF once pt improved medically. CM to follow. Plan: Raheem Date Signed: 03/08/2018 12:09 PM Electronically Signed By:ANGELES Voss
[2018-03-08] MEDS: INSULIN REGULAR HUMAN 100 UNIT/ML UNIT SC SCH ×2 (12:23→17:54)
--- NOTE | 2018-03-08 14:14 | HOSPPROG ---
Hospitalist Progress Note Assessment/Plan: 82 yo F w h/o ovarian CA, recent surgery, intrabdominal abscess Intra-abdominal abscess s/p IR drain -feculent material - suspect anastomotic leak -IV Zosyn, IV diflucan -surgery with Dr. Feliz pending repeat CT done, read pending Klebsiella sepsis - leukocytosis/tachycardia with acute respiratory failure -sepsis physiology improved today gpc bacteremia: awaiting speciation could be enterococcus Ovarian cancer s/p recent SBO with SB resection Acute respiratory failure -resp status improved today code: dnr proph:: enox Subjective: case d/w dr ramirez Objective: Vital Signs Temp Pulse Resp BP Pulse Ox 36.5 C 78 28 H 120/66 97 03/08/18 11:51 03/08/18 11:51 03/08/18 11:51 03/08/18 11:51 03/08/18 11:51 Microbiology 03/06/18 01:15 Gram Stain - Final Abdomen - Swab 03/06/18 11:45 Gram Stain - Final Abdomen - Aspirate 03/06/18 11:45 Mycobacterial Smear (UZAIR) - Final Abdomen - Aspirate Laboratory Results 03/07/18 05:30 03/08/18 04:15 03/07/18 03/08/18 03/09/18 05:59 05:59 05:59 Intake Total 2634 2671 Output Total 1345 1395 75 Balance 1289 1276 -75 PT 16.9 SEC (12.0-15.0) H 03/08/18 04:15 INR 1.36 (0.83-1.16) H 03/08/18 04:15 - Physical Exam Constitutional: no apparent distress, chronically ill appearing Eyes: PERRL, anicteric sclera Ears, Nose, Mouth, Throat: moist mucous membranes, hearing normal Cardiovascular: regular rate and rhythym, no murmur, rub, or gallop Respiratory: no respiratory distress, no rales or rhonchi Gastrointestinal: other (hypoactive bowel sounds. two drains w feculent drainage ), No guarding, No rebound Genitourinary: jimenez in urethra Skin: warm Musculoskeletal: No full muscle strength Neurologic: No AAOx3 Psychiatric: interacting appropriately ICD10 Worksheet Patient Problems: Problems Problem Status Onset Surgical wound infection Acute Bowel obstruction Acute
[2018-03-08] MEDS: MELATONIN 3 MG TAB PO SCH (21:00)
[2018-03-08] MEDS: ATORVASTATIN CALCIUM 20 MG TAB PO SCH (21:00)
[2018-03-08] MEDS: TPN W/ FAMOTIDINE 1 EA BAG IV SCH (21:00)
[2018-03-08] MEDS: FLUCONAZOLE/NaCl 100 ML IV SCH (21:04)
[2018-03-09] MEDS: INSULIN REGULAR HUMAN 100 UNIT/ML UNIT SC SCH ×5 (00:16→23:51)
[2018-03-09] MEDS: PIPERACILLIN/TAZO 4.5 GM/DEX 100 ML IV SCH ×3 (00:16→12:19)
[2018-03-09] MEDS: HYDROmorphONE/DILAUDID 1 MG/ML INJ IVP PRN (02:49)
[2018-03-09] MEDS ORDERED: ALBUTEROL 3 ML DEYVIAL IH PRN (03:14)
[2018-03-09] MEDS ORDERED: LORazepam 0.5 MG TAB PO ONE (03:14)
[2018-03-09 05:51] LABS: INR 1.28 (0.83-1.16); PROTIME(PATIENT) 16.2 SEC (12.0-15.0)
[2018-03-09] MEDS: LEVOTHYROXINE 25 MCG TAB PO SCH (06:37)
[2018-03-09 09:04] LABS: PLATELET COUNT 391 10^3/uL (150-400)
[2018-03-09] MEDS: BUPROPION HBR PO SCH (10:07)
[2018-03-09] MEDS: METOPROLOL TARTRATE 100 MG TAB PO SCH ×2 (10:08→20:36)
[2018-03-09] MEDS: SERTRALINE HCL 100 MG TAB PO SCH (10:08)
[2018-03-09] MEDS: oxyCODONE IR 5 MG TAB PO PRN ×3 (10:10→22:13)
--- NOTE | 2018-03-09 10:37 | SOAPPROG ---
SOAP Progress Note Assessment/Plan: Assessment: 82 y/o F s/p recent open small bowel resection, partial omentectomy, and JUAN JOSE last hospitalization Now admitted with deep right flank abscess. S/p percutaneous drainage with thick purulent material Repeat CT yesterday showed no communication with bowel. S: Sleeping at time of visit. Chose not to wake her up. Per RN, still having brown drainage from midline incision. Afebrile. Plan: Continue to watch. Hopefully can avoid surgery. Will plan for repeat CT again in next few days. 03/09/18 10:34 Objective: Vital Signs Temp Pulse Resp BP Pulse Ox 36.9 C 80 20 131/63 H 95 03/09/18 04:00 03/09/18 04:00 03/09/18 04:00 03/09/18 04:00 03/09/18 04:00 Microbiology 03/06/18 11:45 Gram Stain - Final Abdomen - Aspirate 03/06/18 01:15 Gram Stain - Final Abdomen - Swab 03/06/18 11:45 Mycobacterial Smear (UZAIR) - Final Abdomen - Aspirate Laboratory Results 03/09/18 08:55 03/09/18 05:30 03/08/18 03/09/18 03/10/18 05:59 05:59 05:59 Intake Total 2671 2293 Output Total 1395 1615 Balance 1276 678 PT 16.2 SEC (12.0-15.0) H 03/09/18 05:30 INR 1.28 (0.83-1.16) H 03/09/18 05:30 ICD10 Worksheet Patient Problems: Problems Problem Status Onset Surgical wound infection Acute Bowel obstruction Acute
[2018-03-09] MEDS ORDERED: FUROSEMIDE 40 MG/4 ML VIAL IVP ONE (13:15)
--- NOTE | 2018-03-09 13:15 | PDINTPN ---
[employer] Progress Note Assessment/Plan: ASSESSMENT 82 F with h/o ovarian cancer with SBO s/p small bowel resection JUAN JOSE, partial omentectomy and ventral hernia repair 02/19/18 now admitted with pelvic abscess s/p percutaneous drain 03/06/18 draining feculent material # pelvis abscess # klebsiella bacteremia # protein calorie malnutrition # Ovarian Cancer # Acute Respiratory failure, improving # hypervolemia PLAN # continue Zosyn and Flagyl # CT w intradrain contrast today # TPN started 03/08/18 # Surgical Management per Dr Feliz # lasix x 1 # Feeding - TPN # Analgesia APAP, fentanyl # Sedation propofol # Thromboprophylaxis - SQ hep # Head of bed elevated # Glucose SSI # Skin no skin breakdown # Delirium - delirium precautions ABX zosyn, fluconazole EVENTS 01/29/18 intubation, bronchoscopy CX Data 03/05/18 18:15 Blood Cx 1/2: Klebsiella Oxytoca and GPC 03/06/18 11:45 Abdomen aspirate: Klebsiella Oxytoca & Gram Neg Damien Nonlactose Ferm. 03/06/18 01:15 Abdomen wound: Klebsiella Oxytoca & Gram Positive Cocci IMAGING reviewed Subjective: Slightly more short of breath this morning but improved abdominal pain. Legs feel slightly swollen, tolerating TPN, working with PT OT Objective: Vital Signs Temp Pulse Resp BP Pulse Ox 36.6 C 79 25 H 122/61 H 97 03/09/18 12:00 03/09/18 12:00 03/09/18 12:00 03/09/18 12:00 03/09/18 12:00 Microbiology 03/06/18 01:15 Gram Stain - Final Abdomen - Swab 03/06/18 11:45 Mycobacterial Smear (UZAIR) - Final Abdomen - Aspirate 03/06/18 11:45 Gram Stain - Final Abdomen - Aspirate Laboratory Results 03/09/18 08:55 03/09/18 05:30 03/08/18 03/09/18 03/10/18 05:59 05:59 05:59 Intake Total 2671 2293 Output Total 1395 1615 Balance 1276 678 PT 16.2 SEC (12.0-15.0) H 03/09/18 05:30 INR 1.28 (0.83-1.16) H 03/09/18 05:30 Physical Exam - Physical Exam EENT: PERRL/EOMI, normal ENT inspection Neck: full range of motion, supple Respiratory: chest non-tender, lungs clear Cardiac/Chest: normal peripheral pulses, regular rate, rhythm, edema Abdomen: other (Mild tenderness to palpation. Pelvic Drain in place) Back: Normal inspection Skin: normal color Extremities: pedal edema Neuro/Psych: no motor/sensory deficits, alert, normal mood/affect, oriented x 3 ICD10 Worksheet Patient Problems: Problems Problem Status Onset Surgical wound infection Acute Bowel obstruction Acute
--- NOTE | 2018-03-09 14:11 | HOSPPROG ---
Hospitalist Progress Note Assessment/Plan: 82 yo F w h/o ovarian CA, recent surgery, intrabdominal abscess with possible anastamotic leak #Intra-abdominal abscess s/p IR drain -feculent material - suspect anastomotic leak -IV Zosyn, IV diflucan -Dr. Feliz is following, surgery is being considered #Klebsiella sepsis - leukocytosis/tachycardia with acute respiratory failure -sepsis physiology improved today #gpc bacteremia: awaiting speciation could be enterococcus #Ovarian cancer s/p recent SBO with SB resection #Acute respiratory failure -resp status improved today #PCMN code: dnr proph:: enox Plan: -Await surgical reccs -cont with Zosyn and Diflucan -Lasix x 1 today -Holding Lovenox and Aspirin currently -Start SCD's -NPO and TPN per surgery -SCDs -Ok to transfer out of the SDU if ok with Surgery. Nurse will notify. Subjective: no cp or sob. still weak. Awaiting surgery discussion Objective: Vital Signs Temp Pulse Resp BP Pulse Ox 36.6 C 79 25 H 122/61 H 97 03/09/18 12:00 03/09/18 12:00 03/09/18 12:00 03/09/18 12:00 03/09/18 12:00 Microbiology 03/06/18 01:15 Gram Stain - Final Abdomen - Swab 03/06/18 11:45 Mycobacterial Smear (UZAIR) - Final Abdomen - Aspirate 03/06/18 11:45 Gram Stain - Final Abdomen - Aspirate Laboratory Results 03/09/18 08:55 03/09/18 05:30 03/08/18 03/09/18 03/10/18 05:59 05:59 05:59 Intake Total 2671 2293 Output Total 1395 1615 Balance 1276 678 PT 16.2 SEC (12.0-15.0) H 03/09/18 05:30 INR 1.28 (0.83-1.16) H 03/09/18 05:30 - Physical Exam Constitutional: chronically ill appearing Eyes: PERRL, EOMI Ears, Nose, Mouth, Throat: moist mucous membranes, hearing normal Cardiovascular: regular rate and rhythym, no murmur, rub, or gallop, systolic murmur Respiratory: no respiratory distress, no rales or rhonchi Gastrointestinal: normoactive bowel sounds, soft, non-tender abdomen Skin: warm Musculoskeletal: generalized weakness Neurologic: AAOx3 Psychiatric: interacting appropriately, not anxious, not encephalopathic Lymph, Heme, Immunologic: No petechiae ICD10 Worksheet Patient Problems: Problems Problem Status Onset Surgical wound infection Acute Bowel obstruction Acute
--- NOTE | 2018-03-09 14:32 | PCMIDPN ---
Assessment/Plan: # Klebsiella bacteremia from pelvic abscess, also with distal wound dehiscence, also draining feculent material. Recent ex lap, small bowel resection, JUAN JOSE, partial omentectomy,ventral hernia repair 02/19/18. CT scan yesterday shows smaller abscess (11x6 to 9x2.4cm) and no clear bowel leak but not completely excluded. Cx w E coli, 2 species Klebs, streptococcus --narrow to ceftriaxone +Flagyl, waiting on sensi for Klebs pneumoniae but will likely be susceptible to ceftriaxone. No enterococcus ID to date. NPO so flagyl given IV --continue to monitor clinically --keep fluconazole and monitor cx # unclear of staph hominis in blood cx meds zosyn 4.5gm IV q6h#3 fluconazole 200mg IV daily #4 TPN Microbiology 03/05/18 18:15 Blood Cx 1/2: Klebsiella Oxytoca and staph hominis 03/06/18 11:45 Abdomen aspirate: Klebsiella Oxytoca, E coli 03/06/18 01:15 Abdomen wound: Klebsiella Oxytoca & Streptococcus, E coli Klebs pneumoniae (from dehisced wound) Subjective: feels more energetic today and has less pain Objective: Vital Signs Temp Pulse Resp BP Pulse Ox 36.6 C 79 25 H 122/61 H 97 03/09/18 12:00 03/09/18 12:00 03/09/18 12:00 03/09/18 12:00 03/09/18 12:00 Microbiology 03/06/18 11:45 Gram Stain - Final Abdomen - Aspirate 03/06/18 01:15 Gram Stain - Final Abdomen - Swab 03/06/18 11:45 Mycobacterial Smear (UZAIR) - Final Abdomen - Aspirate Laboratory Results 03/09/18 08:55 03/09/18 05:30 03/08/18 03/09/18 03/10/18 05:59 05:59 05:59 Intake Total 2671 2293 Output Total 1395 1615 Balance 1276 678 Gen: pale, chr ill appearing, sleepy but appropriate w questioning. HEENT: dry MM CV: RRR Chest: shallow inspirations, no crackles or wheezes Abd: soft, ostomy L lower, somewhat midline; JULISSA with feculent material (30cc/24h ) and distal incision with ostomy bag (470cc/24hours), midline incision, upper part incision intact without no drainage; bowel sounds present; no peritoneal signs Skin : no rash RUE PICC, mild associated arm swelling - Time Spent With Patient Time Spent with Patient: greater than 35 minutes Time Spent with Patient: Greater than 35 minutes spent on this patients care, greater than 50% of time spent counseling, educating, and coordinating care regarding the above mentioned plan. ICD10 Worksheet Patient Problems: Problems Problem Status Onset Surgical wound infection Acute Bowel obstruction Acute
[2018-03-09] MEDS ORDERED: D5W 1/2 NS W/ 20 KCl/L 1,000 ML IV SCH (15:00)
[2018-03-09] MEDS: TPN W/ FAMOTIDINE 1 EA BAG IV SCH (20:34)
[2018-03-09] MEDS: MELATONIN 3 MG TAB PO SCH (20:36)
[2018-03-09] MEDS: ATORVASTATIN CALCIUM 20 MG TAB PO SCH (20:36)
[2018-03-09] MEDS: FLUCONAZOLE/NaCl 100 ML IV SCH (21:33)
[2018-03-10] MEDS: LEVOTHYROXINE 25 MCG TAB PO SCH (05:21)
[2018-03-10] MEDS: INSULIN REGULAR HUMAN 100 UNIT/ML UNIT SC SCH ×3 (06:24→18:08)
[2018-03-10] MEDS ORDERED: FUROSEMIDE 40 MG/4 ML VIAL IVP ONE (08:54)
[2018-03-10] MEDS: HYDROmorphONE/DILAUDID 1 MG/ML INJ IVP PRN (09:08)
[2018-03-10] MEDS: METOPROLOL TARTRATE 100 MG TAB PO SCH ×2 (09:09→21:57)
[2018-03-10] MEDS: SERTRALINE HCL 100 MG TAB PO SCH (09:09)
--- NOTE | 2018-03-10 10:49 | PCMIDPN ---
Assessment/Plan: Assessment/Plan: * Intra-abdominal abscess status post small bowel resection with probable underlying anastomotic leak: Clinically improved and abscess decreased in size on CT scan. Cultures reviewed with last Klebsiella isolate susceptibility profile showing that organism is ESBL. Will therefore change ceftriaxone and Flagyl to ertapenem which will provide activity against all isolated pathogens including ESBL producing Klebsiella. Continue to follow clinically and with imaging over time. Initiate contact precautions for ESBL. This was discussed with patient and family. * Bacteremia: Blood culture showing both Klebsiella and Staphylococcus hominis. Unclear significance of Staphylococcus hominis in this setting. 03/10/18 10:44 03/10/18 10:46 Subjective: Patient complains of abdominal discomfort. Objective: Vital Signs Temp Pulse Resp BP Pulse Ox 36.7 C 81 24 H 131/61 H 97 03/10/18 07:33 03/10/18 07:33 03/10/18 07:33 03/10/18 07:33 03/10/18 07:33 Microbiology 03/06/18 01:15 Gram Stain - Final Abdomen - Swab Wound Culture - Final Klebsiella Oxytoca Streptococcus Constellatus Escherichia Coli Klebsiella Pneumoniae Esbl 03/06/18 11:45 Gram Stain - Final Abdomen - Aspirate 03/06/18 11:45 Mycobacterial Smear (UZAIR) - Final Abdomen - Aspirate Laboratory Results 03/09/18 08:55 03/10/18 05:10 03/09/18 03/10/18 03/11/18 05:59 05:59 05:59 Intake Total 2293 2716 Output Total 1615 3285 Balance 678 -569 Ceftriaxone/metronidazole # 1 Fluconazole # 5 Cultures reviewed with last Klebsiella pneumonia isolate susceptibility showing ESBL production - Physical Exam General Appearance: alert, no apparent distress EENT: dry mucous membranes, No scleral icterus, No thrush Respiratory: lungs clear (Anterolaterally), No respiratory distress Cardiac/Chest: regular rate, rhythm Abdomen: tender (Mild tenderness right lower quadrant), No distended Skin: No rash - Line/s RUE PICC Lines: No drainage, No erythema - Time Spent With Patient Time Spent with Patient: greater than 35 minutes Time Spent with Patient: Greater than 35 minutes spent on this patients care, greater than 50% of time spent counseling, educating, and coordinating care regarding the above mentioned plan. ICD10 Worksheet Patient Problems: Problems Problem Status Onset Surgical wound infection Acute Bowel obstruction Acute
--- NOTE | 2018-03-10 10:53 | SOAPPROG ---
SOAP Progress Note Assessment/Plan: Assessment: 82-YEAR-OLD FEMALE 2 WEEKS STATUS POST SMALL BOWEL RESECTION AFTER SBO WITH EXTENSIVE ADHESIOLYSIS AND RESECTION PRESENTS NOW WITH THE WOUND DRAINAGE BUT CT REVEALS A DEEPER RIGHT FLANK ABSCESS PROBABLY ADJACENT TO PREVIOUS ANASTOMOSIS HEENT NONICTERIC WITHOUT ADENOPATHY CHEST CLEAR COR REGULAR RHYTHM ABDOMEN SOFT DISTENDED WITH A DRAINING MIDLINE INCISION WITH A ELIZABETH DRAIN. SHE FEELS FLUCTUANT IN THE RIGHT FLANK WITH SOME TENDERNESS BUT DOES HAVE BOWEL SOUNDS IMPRESSION INTRA-ABDOMINAL ABSCESS CAUSING A WOUND ABSCESS Plan: ANTIBIOTICS/NPO/IV FLUIDS AND PERCUTANEOUS ABSCESS DRAINAGE/ SHE MAY NEED SURGERY DEPENDING ON THE DRAINAGE FINDINGS 03/05/18 21:15 03/06/18 15:06 OR COMFORTABLE THIS A.M./VITAL SIGNS STABLE/AFEBRILE CONTINUED WOUND DRAINAGE REQUIRING FREQUENT DRESSING CHANGES WBC 10 K /HEMATOCRIT 28 CT-GUIDED DRAINAGE DEPENDING/RISKS AND OPTIONS FULLY DISCUSSED/ SHE IS STILL VERY LIKELY TO NEED SURGERY FOR CORRECTION OF THE PROBLEM BUT DRAINAGE IN CONTROL OF HER SEPSIS IS DESIRABLE 1ST/WILL ORDER A PICC LINE AND TPN 03/06/18 17:14 SUCCESSFUL DRAINAGE OF THICK PURULENT MATERIAL FROM RIGHT FLANK/PATIENT FEELS BETTER AND REMAINS AFEBRILE/HOWEVER BLOOD CULTURES ARE POSITIVE/SOME INCREASED OXYGEN NEEDS/CHEST X-RAY MAY SHOW RIGHT PLEURAL EFFUSION SHE STILL VERY LIKELY WILL NEED SURGERY BUT HOPEFULLY THIS WILL CONTROL HER INFECTION A MAKER BETTER FOR EVENTUAL SURGERY 03/06/18 17:16 03/10/18 10:51 AFEBRILE, COMFORTABLE BUT WEAK/ PERSISTENT DRAINAGE/ ABD SOFT WITH BS/ CHEST CLEAR/ HEENT NONICTERIC WILL ATTEMPT SBFT TO HELP DELNIEATE ANY FISTULA Objective: Vital Signs Temp Pulse Resp BP Pulse Ox 36.7 C 81 24 H 131/61 H 97 03/10/18 07:33 03/10/18 07:33 03/10/18 07:33 03/10/18 07:33 03/10/18 07:33 Microbiology 03/06/18 01:15 Gram Stain - Final Abdomen - Swab Wound Culture - Final Klebsiella Oxytoca Streptococcus Constellatus Escherichia Coli Klebsiella Pneumoniae Esbl 03/06/18 11:45 Gram Stain - Final Abdomen - Aspirate 03/06/18 11:45 Mycobacterial Smear (UZAIR) - Final Abdomen - Aspirate Laboratory Results 03/09/18 08:55 03/10/18 05:10 03/09/18 03/10/18 03/11/18 05:59 05:59 05:59 Intake Total 2292 1565 Output Total 4283 3211 Balance 678 -569 PT 16.2 SEC (12.0-15.0) H 03/09/18 05:30 INR 1.28 (0.83-1.16) H 03/09/18 05:30 ICD10 Worksheet Patient Problems: Problems Problem Status Onset Surgical wound infection Acute Bowel obstruction Acute
[2018-03-10] MEDS: BUPROPION HBR PO SCH (11:37)
[2018-03-10] MEDS: ERTAPENEM 1 GM in NS 100 ML IV SCH (11:37)
[2018-03-10] MEDS: ONDANSETRON 4 MG/2 ML VIAL IVP PRN (11:47)
--- NOTE | 2018-03-10 12:28 | HOSPPROG ---
Hospitalist Progress Note Assessment/Plan: 82 yo F w h/o ovarian CA, recent surgery, intrabdominal abscess with possible anastamotic leak #Intra-abdominal abscess s/p IR drain -feculent material - suspect anastomotic leak -Rocephin, IV diflucan -repeat CT scan on 03/10 c/w smaller abscess and no clear bowel leak but not fully excluded -Dr. Feliz is following, surgery is being considered. Awaiting further reccs #Klebsiella sepsis - leukocytosis/tachycardia with acute respiratory failure -sepsis physiology improved today #gpc bacteremia: awaiting speciation could be enterococcus #Ovarian cancer s/p recent SBO with SB resection #Acute respiratory failure -resp status improved today #PCMN #Nutrition: on TPN, NPO code: dnr proph:: enox Plan: -Await surgical reccs -cont with Rocephin and Diflucan -Holding Lovenox and Aspirin -NPO and TPN per surgery -SCDs Subjective: awake and alert. some abdominal pain. no pedal edema Objective: Vital Signs Temp Pulse Resp BP Pulse Ox 36.4 C 79 20 139/60 H 95 03/10/18 11:44 03/10/18 11:44 03/10/18 11:44 03/10/18 11:44 03/10/18 11:44 Microbiology 03/06/18 11:45 Gram Stain - Final Abdomen - Aspirate 03/06/18 01:15 Gram Stain - Final Abdomen - Swab Wound Culture - Final Klebsiella Oxytoca Streptococcus Constellatus Escherichia Coli Klebsiella Pneumoniae Esbl 03/06/18 11:45 Mycobacterial Smear (UZAIR) - Final Abdomen - Aspirate Laboratory Results 03/09/18 08:55 03/10/18 05:10 03/09/18 03/10/18 03/11/18 05:59 05:59 05:59 Intake Total 2293 2716 Output Total 1615 3285 Balance 678 -569 PT 16.2 SEC (12.0-15.0) H 03/09/18 05:30 INR 1.28 (0.83-1.16) H 03/09/18 05:30 - Physical Exam Constitutional: no apparent distress Eyes: PERRL Ears, Nose, Mouth, Throat: moist mucous membranes, hearing normal Cardiovascular: regular rate and rhythym, No edema Respiratory: no respiratory distress, no rales or rhonchi, reduced air movement Gastrointestinal: normoactive bowel sounds Skin: warm Neurologic: AAOx3 Psychiatric: interacting appropriately, not anxious, not encephalopathic Lymph, Heme, Immunologic: No petechiae ICD10 Worksheet Patient Problems: Problems Problem Status Onset Surgical wound infection Acute Bowel obstruction Acute
--- NOTE | 2018-03-10 13:35 | PDINTPN ---
[employer] Progress Note Assessment/Plan: ASSESSMENT 82 F with h/o ovarian cancer with SBO s/p small bowel resection JUAN JOSE, partial omentectomy and ventral hernia repair 02/19/18 now admitted with pelvic abscess s/p percutaneous drain 03/06/18 draining feculent material # pelvis abscess # klebsiella bacteremia # protein calorie malnutrition # Ovarian Cancer # acute respiratory failure, improving # hypervolemia PLAN # continue Zosyn and Flagyl per ID # patient perform CT enterography # TPN started 03/08/18, mgmt per nutrition and ID # Surgical Management per Dr Feliz # Feeding - TPN # Analgesia APAP, fentanyl # Sedation propofol # Thromboprophylaxis - SQ hep # Head of bed elevated # Glucose SSI # Skin no skin breakdown # Delirium - delirium precautions ABX zosyn, fluconazole EVENTS 01/29/18 intubation, bronchoscopy CX Data 03/05/18 18:15 Blood Cx 1/2: Klebsiella Oxytoca and GPC 03/06/18 11:45 Abdomen aspirate: Klebsiella Oxytoca & Gram Neg Damien Nonlactose Ferm. 03/06/18 01:15 Abdomen wound: Klebsiella Oxytoca & Gram Positive Cocci IMAGING reviewed Subjective: Poor sleep overnight, fatigued this AM, no new abd pain, no syncope, no leg swelling, shortness of breath, chest pain Objective: Vital Signs Temp Pulse Resp BP Pulse Ox 36.4 C 79 20 139/60 H 95 03/10/18 11:44 03/10/18 11:44 03/10/18 11:44 03/10/18 11:44 03/10/18 11:44 Microbiology 03/06/18 11:45 Gram Stain - Final Abdomen - Aspirate 03/06/18 11:45 Mycobacterial Smear (UZAIR) - Final Abdomen - Aspirate 03/06/18 01:15 Gram Stain - Final Abdomen - Swab Wound Culture - Final Klebsiella Oxytoca Streptococcus Constellatus Escherichia Coli Klebsiella Pneumoniae Esbl Laboratory Results 03/09/18 08:55 03/10/18 05:10 03/09/18 03/10/18 03/11/18 05:59 05:59 05:59 Intake Total 2293 3586 Output Total 1615 8535 Balance 678 -569 PT 16.2 SEC (12.0-15.0) H 03/09/18 05:30 INR 1.28 (0.83-1.16) H 03/09/18 05:30 Physical Exam - Physical Exam EENT: PERRL/EOMI, normal ENT inspection Neck: non-tender, full range of motion Respiratory: chest non-tender, lungs clear, other (Nasal cannula to be in place) Cardiac/Chest: normal peripheral pulses, regular rate, rhythm Abdomen: other (Mild tenderness to palpation, abdominal drain in place, no rebound or guarding) Back: Normal inspection Skin: normal color, warm/dry Neuro/Psych: no motor/sensory deficits, alert, normal mood/affect, oriented x 3 , other (Flat affect) ICD10 Worksheet Patient Problems: Problems Problem Status Onset Surgical wound infection Acute Bowel obstruction Acute
[2018-03-10] MEDS: NS 1,000 ML IV SCH (16:00)
--- NOTE | 2018-03-10 18:33 | SOAPPROG ---
AJ[facility] Progress Note Assessment/Plan: Assessment: 82-YEAR-OLD FEMALE 2 WEEKS STATUS POST SMALL BOWEL RESECTION AFTER SBO WITH EXTENSIVE ADHESIOLYSIS AND RESECTION PRESENTS NOW WITH THE WOUND DRAINAGE BUT CT REVEALS A DEEPER RIGHT FLANK ABSCESS PROBABLY ADJACENT TO PREVIOUS ANASTOMOSIS HEENT NONICTERIC WITHOUT ADENOPATHY CHEST CLEAR COR REGULAR RHYTHM ABDOMEN SOFT DISTENDED WITH A DRAINING MIDLINE INCISION WITH A ELIZABETH DRAIN. SHE FEELS FLUCTUANT IN THE RIGHT FLANK WITH SOME TENDERNESS BUT DOES HAVE BOWEL SOUNDS IMPRESSION INTRA-ABDOMINAL ABSCESS CAUSING A WOUND ABSCESS Plan: ANTIBIOTICS/NPO/IV FLUIDS AND PERCUTANEOUS ABSCESS DRAINAGE/ SHE MAY NEED SURGERY DEPENDING ON THE DRAINAGE FINDINGS 03/05/18 21:15 03/06/18 15:06 OR COMFORTABLE THIS A.M./VITAL SIGNS STABLE/AFEBRILE CONTINUED WOUND DRAINAGE REQUIRING FREQUENT DRESSING CHANGES WBC 10 K /HEMATOCRIT 28 CT-GUIDED DRAINAGE DEPENDING/RISKS AND OPTIONS FULLY DISCUSSED/ SHE IS STILL VERY LIKELY TO NEED SURGERY FOR CORRECTION OF THE PROBLEM BUT DRAINAGE IN CONTROL OF HER SEPSIS IS DESIRABLE 1ST/WILL ORDER A PICC LINE AND TPN 03/06/18 17:14 SUCCESSFUL DRAINAGE OF THICK PURULENT MATERIAL FROM RIGHT FLANK/PATIENT FEELS BETTER AND REMAINS AFEBRILE/HOWEVER BLOOD CULTURES ARE POSITIVE/SOME INCREASED OXYGEN NEEDS/CHEST X-RAY MAY SHOW RIGHT PLEURAL EFFUSION SHE STILL VERY LIKELY WILL NEED SURGERY BUT HOPEFULLY THIS WILL CONTROL HER INFECTION A MAKER BETTER FOR EVENTUAL SURGERY 03/06/18 17:16 03/10/18 10:51 AFEBRILE, COMFORTABLE BUT WEAK/ PERSISTENT DRAINAGE/ ABD SOFT WITH BS/ CHEST CLEAR/ HEENT NONICTERIC WILL ATTEMPT SBFT TO HELP DELNIEATE ANY FISTULA 03/10/18 18:31 STABLE/AFEBRILE/HOWEVER SMALL-BOWEL FOLLOW-THROUGH AND CT SHOW A DEFINITE SMALL BOWEL FISTULA BECAUSE THE HIGH VOLUME OUTPUT I THINK SHE SHOULD HAVE SURGERY TOMORROW TO TRY TO REPAIR THIS/THIS MAY BE QUITE DIFFICULT HER ORIGINAL SURGERY WAS EXTREMELY DIFFICULT RISKS AND OPTIONS FULLY DISCUSSED PLAN IS EXPLORATORY LAPAROTOMY IN THE A.M. Objective: Vital Signs Temp Pulse Resp BP Pulse Ox 36.7 C 84 26 H 123/60 H 94 03/10/18 16:00 03/10/18 16:00 03/10/18 16:00 03/10/18 16:00 03/10/18 16:00 Microbiology 03/06/18 11:45 Gram Stain - Final Abdomen - Aspirate 03/06/18 11:45 Mycobacterial Smear (UZAIR) - Final Abdomen - Aspirate 03/06/18 01:15 Gram Stain - Final Abdomen - Swab Wound Culture - Final Klebsiella Oxytoca Streptococcus Constellatus Escherichia Coli Klebsiella Pneumoniae Esbl Laboratory Results 03/09/18 08:55 03/10/18 05:10 03/09/18 03/10/18 03/11/18 05:59 05:59 05:59 Intake Total 2291 5786 Output Total 1614 2871 1600 Balance 678 -569 -1600 PT 16.2 SEC (12.0-15.0) H 03/09/18 05:30 INR 1.28 (0.83-1.16) H 03/09/18 05:30 ICD10 Worksheet Patient Problems: Problems Problem Status Onset Surgical wound infection Acute Bowel obstruction Acute
[2018-03-10] MEDS: TPN W/ FAMOTIDINE 1 EA BAG IV SCH (21:32)
[2018-03-10] MEDS: ACETAMINOPHEN 325 MG TAB PO PRN (21:56)
[2018-03-10] MEDS: MELATONIN 3 MG TAB PO SCH (21:57)
[2018-03-10] MEDS: ATORVASTATIN CALCIUM 20 MG TAB PO SCH (21:57)
[2018-03-10] MEDS: FLUCONAZOLE/NaCl 100 ML IV SCH (22:10)
[2018-03-11] MEDS: INSULIN REGULAR HUMAN 100 UNIT/ML UNIT SC SCH ×4 (00:19→18:47)
[2018-03-11 04:54] LABS: PLATELET COUNT 393 10^3/uL (150-400)
[2018-03-11] MEDS: LEVOTHYROXINE 25 MCG TAB PO SCH (06:35)
--- NOTE | 2018-03-11 08:46 | PCMIDPN ---
Assessment/Plan: # Klebsiella bacteremia from pelvic abscess, also with distal wound dehiscence, also draining feculent material. Recent ex lap, small bowel resection, JUAN JOSE, partial omentectomy,ventral hernia repair 02/19/18. CT scan yesterday shows bowel leak. Cx w E coli, ESBL Klebsiella, streptococcus --changed to ertapenem in light of ESBL yesterday. --to OR today --keep fluconazole and monitor cx # unclear significance of staph hominis in blood cx meds Ertapenem 1 g IV daily, # 2 fluconazole 200mg IV daily #6 TPN Microbiology 03/05/18 18:15 Blood Cx 1/2: Klebsiella Oxytoca and staph hominis 03/06/18 11:45 Abdomen aspirate: Klebsiella Oxytoca, E coli 03/06/18 01:15 Abdomen wound: Klebsiella Oxytoca & Streptococcus, E coli, Klebs pneumoniae ESBL Subjective: Patient very anxious regarding upcoming procedure; worried that she might have an obstruction Describes diffuse discomfort Objective: Vital Signs Temp Pulse Resp BP Pulse Ox 36.3 C 80 25 H 119/56 L 95 03/11/18 08:00 03/11/18 08:00 03/11/18 08:00 03/11/18 08:00 03/11/18 08:00 Microbiology 03/06/18 11:45 Gram Stain - Final Abdomen - Aspirate 03/06/18 11:45 Mycobacterial Smear (UZAIR) - Final Abdomen - Aspirate 03/06/18 01:15 Gram Stain - Final Abdomen - Swab Wound Culture - Final Klebsiella Oxytoca Streptococcus Constellatus Escherichia Coli Klebsiella Pneumoniae Esbl Laboratory Results 03/11/18 04:45 03/11/18 04:45 03/10/18 03/11/18 03/12/18 05:59 05:59 05:59 Intake Total 2716 2106 Output Total 4224 4605 Balance -829 -7397 - Physical Exam General Appearance: alert, no apparent distress EENT: pale conjunctiva, dry mucous membranes, No scleral icterus Respiratory: No accessory muscle use Abdomen: other (Discomfort to palpation diffusely, midline incision proximally with some pinkness; distal wound dehisced with ostomy appliance attached and brown drainage; right JULISSA drain also with brown drainage; output equal 1 L last 24 hr) Pelvic Exam: jimenez Skin: pallor, No rash Neuro/Psych: alert, oriented x 3, depressed affect - Time Spent With Patient Time Spent with Patient: greater than 25 minutes Time Spent with Patient: Greater than 25 minutes spent on this patients care, greater than 50% of time spent counseling, educating, and coordinating care regarding the above mentioned plan. ICD10 Worksheet Patient Problems: Problems Problem Status Onset Surgical wound infection Acute Bowel obstruction Acute
[2018-03-11] MEDS ORDERED: LORazepam 2 MG/ML INJ IVP ONE (08:48)
[2018-03-11] MEDS: ONDANSETRON 4 MG/2 ML VIAL IVP PRN (09:06)
[2018-03-11] MEDS: HYDROmorphONE/DILAUDID 1 MG/ML INJ IVP PRN ×2 (09:06→22:30)
[2018-03-11] MEDS: ERTAPENEM 1 GM in NS 100 ML IV SCH (09:09)
[2018-03-11 09:40] LABS: INR 1.29 (0.83-1.16); PROTIME(PATIENT) 16.3 SEC (12.0-15.0)
[2018-03-11] MEDS ORDERED: traZODone 50 MG TAB PO PRN (10:13)
[2018-03-11] MEDS ORDERED: BUPIVACAINE 0.5% 30 ML SDV ONE (10:53)
--- NOTE | 2018-03-11 10:53 | SOAPPROG ---
AJITH Progress Note Assessment/Plan: Assessment: 82-YEAR-OLD FEMALE 2 WEEKS STATUS POST SMALL BOWEL RESECTION AFTER SBO WITH EXTENSIVE ADHESIOLYSIS AND RESECTION PRESENTS NOW WITH THE WOUND DRAINAGE BUT CT REVEALS A DEEPER RIGHT FLANK ABSCESS PROBABLY ADJACENT TO PREVIOUS ANASTOMOSIS HEENT NONICTERIC WITHOUT ADENOPATHY CHEST CLEAR COR REGULAR RHYTHM ABDOMEN SOFT DISTENDED WITH A DRAINING MIDLINE INCISION WITH A ELIZABETH DRAIN. SHE FEELS FLUCTUANT IN THE RIGHT FLANK WITH SOME TENDERNESS BUT DOES HAVE BOWEL SOUNDS IMPRESSION INTRA-ABDOMINAL ABSCESS CAUSING A WOUND ABSCESS Plan: ANTIBIOTICS/NPO/IV FLUIDS AND PERCUTANEOUS ABSCESS DRAINAGE/ SHE MAY NEED SURGERY DEPENDING ON THE DRAINAGE FINDINGS 03/05/18 21:15 03/06/18 15:06 OR COMFORTABLE THIS A.M./VITAL SIGNS STABLE/AFEBRILE CONTINUED WOUND DRAINAGE REQUIRING FREQUENT DRESSING CHANGES WBC 10 K /HEMATOCRIT 28 CT-GUIDED DRAINAGE DEPENDING/RISKS AND OPTIONS FULLY DISCUSSED/ SHE IS STILL VERY LIKELY TO NEED SURGERY FOR CORRECTION OF THE PROBLEM BUT DRAINAGE IN CONTROL OF HER SEPSIS IS DESIRABLE 1ST/WILL ORDER A PICC LINE AND TPN 03/06/18 17:14 SUCCESSFUL DRAINAGE OF THICK PURULENT MATERIAL FROM RIGHT FLANK/PATIENT FEELS BETTER AND REMAINS AFEBRILE/HOWEVER BLOOD CULTURES ARE POSITIVE/SOME INCREASED OXYGEN NEEDS/CHEST X-RAY MAY SHOW RIGHT PLEURAL EFFUSION SHE STILL VERY LIKELY WILL NEED SURGERY BUT HOPEFULLY THIS WILL CONTROL HER INFECTION A MAKER BETTER FOR EVENTUAL SURGERY 03/06/18 17:16 03/10/18 10:51 AFEBRILE, COMFORTABLE BUT WEAK/ PERSISTENT DRAINAGE/ ABD SOFT WITH BS/ CHEST CLEAR/ HEENT NONICTERIC WILL ATTEMPT SBFT TO HELP DELNIEATE ANY FISTULA 03/10/18 18:31 STABLE/AFEBRILE/HOWEVER SMALL-BOWEL FOLLOW-THROUGH AND CT SHOW A DEFINITE SMALL BOWEL FISTULA BECAUSE THE HIGH VOLUME OUTPUT I THINK SHE SHOULD HAVE SURGERY TOMORROW TO TRY TO REPAIR THIS/THIS MAY BE QUITE DIFFICULT HER ORIGINAL SURGERY WAS EXTREMELY DIFFICULT RISKS AND OPTIONS FULLY DISCUSSED PLAN IS EXPLORATORY LAPAROTOMY IN THE A.M. 03/11/18 10:51 REMAINS AFEBRILE BUT HIGH OUTPUT DRAINAGE/ RISKS AND OPTIONS FULLY DISCUSSED WITH PT AND DAUGHTER INCLUDING AND SHE WISHES TO PROCEED/ PLAN EX- LAP TODAY Objective: Vital Signs Temp Pulse Resp BP Pulse Ox 36.3 C 83 20 137/55 H 96 03/11/18 10:47 03/11/18 10:47 03/11/18 10:47 12/07/18 10:47 03/11/18 10:47 Microbiology 03/06/18 11:45 Gram Stain - Final Abdomen - Aspirate 03/06/18 11:45 Mycobacterial Smear (UZAIR) - Final Abdomen - Aspirate 03/06/18 01:15 Gram Stain - Final Abdomen - Swab Wound Culture - Final Klebsiella Oxytoca Streptococcus Constellatus Escherichia Coli Klebsiella Pneumoniae Esbl Laboratory Results 03/11/18 04:45 03/11/18 04:45 03/10/18 03/11/18 03/12/18 05:59 05:59 05:59 Intake Total 2716 2106 Output Total 3282 3856 Balance -569 -2092 PT 16.3 SEC (12.0-15.0) H 03/11/18 08:55 INR 1.29 (0.83-1.16) H 03/11/18 08:55 ICD10 Worksheet Patient Problems: Problems Problem Status Onset Surgical wound infection Acute Bowel obstruction Acute
--- NOTE | 2018-03-11 11:08 | PDINTPN ---
Trim Line Worker Progress Note Assessment/Plan: ASSESSMENT 82 F with h/o ovarian cancer with SBO s/p small bowel resection JUAN JOSE, partial omentectomy and ventral hernia repair 02/19/18 now admitted with pelvic abscess s/p percutaneous drain 03/06/18 draining feculent material and CT enterography with small bowel leak. # pelvis abscess # small bowel perforation/fistula # klebsiella bacteremia # protein calorie malnutrition # Ovarian Cancer # acute respiratory failure, improving # hypervolemia # Insomnia PLAN # back to OR today # continue Zosyn and Flagyl per ID # patient perform CT enterography # TPN started 03/08/18, mgmt per nutrition and ID # Surgical Management per Dr Feliz # Feeding - TPN # Analgesia APAP, fentanyl # Sedation low dose trazodone for sleep # Thromboprophylaxis - SQ hep, hold for surgery # Head of bed elevated # Glucose SSI # Delirium - delirium precautions ABX zosyn, fluconazole EVENTS 01/29/18 intubation, bronchoscopy CX Data 03/05/18 18:15 Blood Cx 04/06: Klebsiella Oxytoca 03/06/18 11:45 Abdomen aspirate: Klebsiella Oxytoca, ESBL ecoli and cdiff 03/06/18 01:15 Abdomen wound: Klebsiella Oxytoca, ESBL ecoli and cdiff IMAGING reviewed 03/10/2018 CT enterography abdomen pelvis with evidence of small bowel leakage and abscess formation 03/11/18 11:06 03/11/18 11:07 Subjective: Underwent CT enterography with demonstration of contrast leaking from small bowel. Patient complains of ongoing fatigue and mild breathlessness. Denies new fevers chills nausea or vomiting. Tolerating TPN Objective: Vital Signs Temp Pulse Resp BP Pulse Ox 36.3 C 83 20 137/55 H 96 03/11/18 10:47 03/11/18 10:47 03/11/18 10:47 03/11/18 10:47 03/11/18 10:47 Microbiology 03/06/18 11:45 Gram Stain - Final Abdomen - Aspirate 03/06/18 11:45 Mycobacterial Smear (UZAIR) - Final Abdomen - Aspirate 03/06/18 01:15 Gram Stain - Final Abdomen - Swab Wound Culture - Final Klebsiella Oxytoca Streptococcus Constellatus Escherichia Coli Klebsiella Pneumoniae Esbl Laboratory Results 03/11/18 04:45 03/11/18 04:45 12/09/2003/11/18 03/12/18 05:59 05:59 05:59 Intake Total 2716 2106 Output Total 3288 4388 Balance -569 -1749 PT 16.3 SEC (12.0-15.0) H 03/11/18 08:55 INR 1.29 (0.83-1.16) H 03/11/18 08:55 Physical Exam - Physical Exam General Appearance: No other EENT: PERRL/EOMI (bed), normal ENT inspection Neck: non-tender, full range of motion Respiratory: chest non-tender, lungs clear Cardiac/Chest: regular rate, rhythm, edema, No gallop Abdomen: other (Pelvic drain site without increased purulence. Mild tenderness , no rebound or guarding) Rectal: deferred Back: Normal inspection Skin: normal color, warm/dry Neuro/Psych: other (Flat affect alert oriented x3. No obvious cranial nerve deficits) ICD10 Worksheet Patient Problems: Problems Problem Status Onset Surgical wound infection Acute Bowel obstruction Acute
--- NOTE | 2018-03-11 11:18 | HOSPPROG ---
Hospitalist Progress Note Assessment/Plan: 82 yo F w h/o ovarian CA, recent surgery, admitted with intrabdominal abscess treated with IV abx and no surgery. 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 She will go to surgery today. #Intra-abdominal abscess s/p IR drain, small bowel fistula -Rocephin, IV diflucan -Dr. Feliz to perform Ex Lap today #Klebsiella sepsis - leukocytosis/tachycardia with acute respiratory failure -sepsis physiology improved today #Ovarian cancer s/p recent SBO with SB resection #Acute respiratory failure -resp status improved #PCMN #Nutrition: on TPN, NPO code: dnr proph:: SCD's as Lovenox was held Subjective: scheduled for surgery today. Objective: Vital Signs Temp Pulse Resp BP Pulse Ox 36.3 C 83 20 137/55 H 96 03/11/18 10:47 03/11/18 10:47 03/11/18 10:47 03/11/18 10:47 03/11/18 10:47 Microbiology 03/06/18 11:45 Gram Stain - Final Abdomen - Aspirate 03/06/18 11:45 Mycobacterial Smear (UZAIR) - Final Abdomen - Aspirate 03/06/18 01:15 Gram Stain - Final Abdomen - Swab Wound Culture - Final Klebsiella Oxytoca Streptococcus Constellatus Escherichia Coli Klebsiella Pneumoniae Esbl Laboratory Results 03/11/18 04:45 03/11/18 04:45 03/10/18 03/11/18 03/12/18 05:59 05:59 05:59 Intake Total 2716 2106 Output Total 3285 3855 Balance -569 -1749 PT 16.3 SEC (12.0-15.0) H 03/11/18 08:55 INR 1.29 (0.83-1.16) H 03/11/18 08:55 - Physical Exam Constitutional: no apparent distress Eyes: PERRL Ears, Nose, Mouth, Throat: moist mucous membranes, hearing normal Cardiovascular: regular rate and rhythym, No edema Respiratory: no respiratory distress, reduced air movement Gastrointestinal: normoactive bowel sounds, soft, non-tender abdomen Skin: warm Neurologic: AAOx3 Psychiatric: interacting appropriately, not anxious, not encephalopathic Lymph, Heme, Immunologic: No petechiae ICD10 Worksheet Patient Problems: Problems Problem Status Onset Surgical wound infection Acute Bowel obstruction Acute
[2018-03-11] MEDS: METOPROLOL TARTRATE 100 MG TAB PO SCH (11:28)
[2018-03-11] MEDS: SERTRALINE HCL 100 MG TAB PO SCH (11:28)
[2018-03-11] MEDS: BUPROPION HBR PO SCH (11:28)
--- NOTE | 2018-03-11 11:38 | PDANEPAE ---
ANE History of Present Illness small bowel fistula ANE Past Medical History - Cardiovascular History Hx Hypertension: Yes Hx Arrhythmias: No Hx Chest Pain: No Hx Coronary Artery / Peripheral Vascular Disease: No Hx CHF / Valvular Disease: No Hx Palpitations: No - Pulmonary History Hx COPD: No Hx Asthma/Reactive Airway Disease: No Hx Recent Upper Respiratory Infection: No Hx Oxygen in Use at Home: Yes O2 in Use at Home (L/minute): 2 Hx Sleep Apnea: Yes Sleep Apnea Screening Result - Last Documented: Positive - Endocrine History Hx Diabetes: No Hypothyroid: No Hyperthyroid: No Obesity: yes, mild - Renal History Hx Renal Disorders: No - Liver History Hx Hepatic Disorders: No - Neurological & Psychiatric Hx Hx Neurological and Psychiatric Disorders: No - Cancer History Hx Cancer: Yes Cancer History Comment: ovarian ca - Congenital Disorder History Hx Congenital Disorders: No - GI History GERD: no Hx Gastrointestinal Disorders: Yes Gastrointestinal History Comment: small bowel fistula - Chronic Pain History Chronic Pain: No ANE Review of Systems Review of systems is: negative Review of Systems: - Exercise capacity METS (RN): 2 METS ANE Patient History - Allergies Allergies/Adverse Reactions: No Known Allergies Allergy (Verified 01/03/18 11:58) - Home Medications Home medications: home medication list seen and reviewed Home Medications: Aspirin [Aspirin 81mg (*)] 81 mg PO HS 05/03/16 [Last Taken Unknown] Simvastatin [Zocor] 40 mg PO HS 05/03/16 [Last Taken Unknown] Docusate Sodium [Colace 100 MG (*)] 100 mg PO DAILY 02/18/18 [Last Taken Unknown ] Levothyroxine [Synthroid 25 mcg (*)] 25 mcg PO DAILY06 #0 02/18/18 [Last Taken Unknown] Bupropion HBr [Aplenzin] 348 mg PO DAILY 02/20/18 [Last Taken Unknown] Metoprolol Tartrate [Lopressor 100 mg (*)] 100 mg PO BID 02/20/18 [Last Taken Unknown] Multivitamins [Multivitamin (*)] 1 tab PO DAILY 02/20/18 [Last Taken Unknown] Sertraline HCl [Zoloft 100mg (*)] 100 mg PO DAILY 02/20/18 [Last Taken Unknown] Acetaminophen [Tylenol 325mg (*)] 650 mg PO Q4 PRN 03/05/18 [Last Taken Unknown] Herbals/Supplements -Info Only 1 ea PO DAILY 03/05/18 [Last Taken Unknown] Melatonin [Melatonin 3 MG (*)] 3 mg PO HS 03/05/18 [Last Taken Unknown] Sulfamethox/Tmp 800/160 mg [Bactrim Ds] 1 tab PO BID 03/05/18 [Last Taken Unknown] traMADol [Ultram 50 mg (*)] 50 mg PO Q4 PRN 03/05/18 [Last Taken Unknown] - NPO status NPO Status: no food or drink >8 hours NPO Since - Liquids (Date): 03/10/18 NPO Since - Liquids (Time): 22:10 NPO Since - Solids (Date): 03/10/18 NPO Since - Solids (Time): 21:45 - Anes Hx Anes Hx: no prior problems - Smoking Hx Smoking Status: Never smoked - Alcohol Use Alcohol Use: None - Family Anes Hx Family Anes Hx: none ANE Labs/Vital Signs - Labs Result Diagrams: 03/11/18 04:45 03/11/18 04:45 - Vital Signs Blood Pressure: 137/55 Heart Rate: 83 Respiratory Rate: 20 O2 Sat (%): 96 Height: 162.56 cm Weight: 81.2 kg ANE Physical Exam - Airway Neck exam: FROM Mallampati Score: Class 2 Mouth exam: normal dental/mouth exam - Pulmonary Pulmonary: no respiratory distress, clear to auscultation - Cardiovascular Cardiovascular: regular rate and rhythym, no murmur, rub, or gallop - ASA Status ASA Status: IV ANE Anesthesia Plan Anesthesia Plan: general endotracheal anesthesia
[2018-03-11] MEDS ORDERED: fentaNYL 250 MCG/5 ML INJ ONE (12:07)
[2018-03-11] MEDS ORDERED: PROPOFOL 200 MG/20 ML VIAL ONE (12:07)
[2018-03-11] MEDS ORDERED: LIDOCAINE 2% 5 ML SDV ONE (12:08)
[2018-03-11] MEDS ORDERED: ROCURONIUM 50 MG/5 ML VIAL ONE (12:08)
[2018-03-11] MEDS ORDERED: ePHEDrine SULFATE 25 MG/5 ML SYR ONE (12:57)
[2018-03-11] MEDS ORDERED: ONDANSETRON 4 MG/2 ML VIAL ONE (14:54)
[2018-03-11] MEDS ORDERED: LABETALOL HCL 20 MG/4 ML INJ IVP PRN (15:04)
[2018-03-11] MEDS ORDERED: fentaNYL 100 MCG/2 ML INJ IVP PRN (15:04)
[2018-03-11] MEDS ORDERED: PROMETHAZINE HCL 25 MG/ML INJ IVP PRN (15:04)
[2018-03-11] MEDS ORDERED: NALOXONE HCL 0.4 MG/ML INJ IVP PRN (15:04)
--- NOTE | 2018-03-11 15:05 | POSTANESTH ---
Post Anesthetic Evaluation Cardiovascular Status: Normal, Stable Respiratory Status: Normal, Stable, Similar to Pre-op Cond. Level of Consciousness/Mental Status: Can Participate in Eval, Moderately Sleepy Pain Control: Adequate, Prn Tx Ordered Nausea/Vomiting Control: Adequate, Prn Tx Ordered Complications Possibly Related to Anesthesia: None Noted
[2018-03-11] MEDS ORDERED: PROMETHAZINE HCL 25 MG/ML INJ ONE (16:31)
[2018-03-11] MEDS ORDERED: NS 500 ML IV PRN (16:39)
[2018-03-11] MEDS ORDERED: DEXMEDETOMIDINE HCL 400 MCG in NS 100 ML IV SCH (17:00)
[2018-03-11] MEDS: FLUCONAZOLE/NaCl 100 ML IV SCH (21:49)
[2018-03-11] MEDS: TPN W/ FAMOTIDINE 1 EA BAG IV SCH (21:49)
[2018-03-12] MEDS: METOPROLOL TARTRATE 100 MG TAB PO SCH ×4 (00:06→22:05)
[2018-03-12] MEDS: MELATONIN 3 MG TAB PO SCH ×2 (00:06→22:05)
[2018-03-12] MEDS: ATORVASTATIN CALCIUM 20 MG TAB PO SCH ×2 (00:06→22:04)
[2018-03-12] MEDS: INSULIN REGULAR HUMAN 100 UNIT/ML UNIT SC SCH ×4 (00:44→18:24)
[2018-03-12 03:39] LABS: PLATELET COUNT 379 10^3/uL (150-400)
[2018-03-12] MEDS: ONDANSETRON 4 MG/2 ML VIAL IVP PRN (07:45)
[2018-03-12] MEDS: HYDROmorphONE/DILAUDID 1 MG/ML INJ IVP PRN (08:10)
--- NOTE | 2018-03-12 08:39 | SOAPPROG ---
SOAP Progress Note Assessment/Plan: Assessment/Plan: 82 Y F c recent hx of laparotomy c bowel resection and adhesiolysis for SBO, now admitted with retroperitoneal abscess c communicating wound infection, s/p drainage, now s/p exlaparotomy c washout and exploration, POD#1. Seen and examined c Dr. Gonsalez. Afebrile. WBCs slightly up today. Enteric fistula. s/p exploration. JULISSA drains and abthera vac drainage is serosanguinous--not feculent nor purulent. Vac to good suction. Ileus. Continue NPO. May have some ice chips. On TPN. Nausea. Just received zofran. Pain. Has pain medicine ordered. Continue jimenez catheter for accurate I and O's and surgical requirement. Abx. ID following. Continue current care. Patient quite sick, but doing well. S: alert, has some pain and nausea. wants to know if she can have some pain medicine. O: alert, nad--sleeping but easily arousable and appropriate mmm ctab anteriorly rrr abd soft, no BS, vac to suction, drains per above 03/12/18 09:04 Objective: Vital Signs Temp Pulse Resp BP Pulse Ox 36.5 C 100 28 H 140/59 H 93 03/12/18 07:33 03/12/18 07:33 03/12/18 07:33 03/12/18 07:33 03/12/18 07:33 Microbiology 03/11/18 13:30 Gram Stain - Final Abdomen - Other 03/06/18 11:45 Gram Stain - Final Abdomen - Aspirate Laboratory Results 03/12/18 03:20 03/12/18 03:20 03/11/18 03/12/18 03/13/18 05:59 05:59 05:59 Intake Total 2106 2050 Output Total 3855 1445 Balance -1749 605 PT 16.3 SEC (12.0-15.0) H 03/11/18 08:55 INR 1.29 (0.83-1.16) H 03/11/18 08:55 ICD10 Worksheet Patient Problems: Problems Problem Status Onset Surgical wound infection Acute Bowel obstruction Acute
[2018-03-12] MEDS: ERTAPENEM 1 GM in NS 100 ML IV SCH (09:18)
[2018-03-12] MEDS: LEVOTHYROXINE 25 MCG TAB PO SCH (09:50)
[2018-03-12] MEDS: SERTRALINE HCL 100 MG TAB PO SCH (09:52)
[2018-03-12] MEDS: BUPROPION HBR PO SCH (09:52)
--- NOTE | 2018-03-12 10:08 | PDINTPN ---
Supervisor Fitting Progress Note Assessment/Plan: ASSESSMENT 82 F with h/o ovarian cancer with SBO s/p small bowel resection JUAN JOSE, partial omentectomy and ventral hernia repair 02/19/18 now admitted with pelvic abscess s/p percutaneous drain 03/06/18 draining feculent material and CT enterography with small bowel leak s/p ex lap w washout and repair 03/11/18. # pelvis abscess # small bowel perforation/fistula s/p ex lap with washout and repair 03/11/18 # klebsiella bacteremia # protein calorie malnutrition # Ovarian Cancer # acute respiratory failure, improving # hypervolemia # Insomnia PLAN # lasix 20 mg IV x 1 # continue Zosyn and Flagyl per ID # TPN started 03/08/18, mgmt per nutrition and ID # Surgical management per Dr Feliz # Feeding - TPN # Analgesia APAP, fentanyl # Sedation low dose trazodone for sleep # Thromboprophylaxis - SQ hep, hold for surgery # Head of bed elevated # Glucose SSI # Delirium - delirium precautions ABX zosyn, fluconazole EVENTS 01/29/18 intubation, bronchoscopy CX Data 03/05/18 18:15 Blood Cx 1/2: Klebsiella Oxytoca 03/06/18 11:45 Abdomen aspirate: Klebsiella Oxytoca, ESBL ecoli and cdiff 03/06/18 01:15 Abdomen wound: Klebsiella Oxytoca, ESBL ecoli and cdiff IMAGING reviewed 03/10/2018 CT enterography abdomen pelvis with evidence of small bowel leakage and abscess formation 03/12/2018 chest x-ray low lung volumes, increased interstitial marking small layering pleural effusion 03/12/18 10:53 03/12/18 10:56 Subjective: s/p ex lap 03/11/18 with washout and repair. Tachypneic and short of breath this AM, CXR ordered and pending. No worsening abd pain, fevers, chills, nausea or vomiting. Objective: Vital Signs Temp Pulse Resp BP Pulse Ox 36.5 C 100 28 H 140/59 H 93 03/12/18 07:33 03/12/18 07:33 03/12/18 07:33 03/12/18 07:33 03/12/18 07:33 Microbiology 03/11/18 13:30 Gram Stain - Final Abdomen - Other 03/06/18 11:45 Gram Stain - Final Abdomen - Aspirate Laboratory Results 03/12/18 03:20 03/12/18 03:20 03/11/18 03/12/18 03/13/18 05:59 05:59 05:59 Intake Total 2105 2049 Output Total 6914 1445 Balance -1749 605 PT 16.3 SEC (12.0-15.0) H 03/11/18 08:55 INR 1.29 (0.83-1.16) H 03/11/18 08:55 Physical Exam - Physical Exam General Appearance: alert, mild distress EENT: PERRL/EOMI, normal ENT inspection Respiratory: other (Decreased bibasilar breath sounds, mild rales bases) Cardiac/Chest: normal peripheral pulses, regular rate, rhythm, edema Abdomen: other (Mildly tender abdomen,) Skin: normal color, warm/dry Extremities: normal range of motion, non-tender Neuro/Psych: no motor/sensory deficits, alert, depressed affect ICD10 Worksheet Patient Problems: Problems Problem Status Onset Surgical wound infection Acute Bowel obstruction Acute
[2018-03-12] MEDS ORDERED: FUROSEMIDE 20 MG/2 ML VIAL IVP ONE (10:55)
[2018-03-12] MEDS: LEVOTHYROXINE IVP SCH (12:37)
--- NOTE | 2018-03-12 13:12 | PCMIDPN ---
Assessment/Plan: # Klebsiella bacteremia from polymicrobial pelvic abscess, drains and wound vac just with serosang fluid. Back to OR yesterday where there was formed stool and frozen abdomen, no perf ID but difficult assessment due to frozen abdomen. WBC sl up today, no unexpected post op --continue ertapenem and fluconazole --likely back to OR on Wednesday # unclear significance of staph hominis in blood cx meds Ertapenem 1 g IV daily, #3 fluconazole 200mg IV daily #7 TPN Microbiology 03/05/18 18:15 Blood Cx 1/2: Klebsiella Oxytoca and staph hominis 03/06/18 11:45 Abdomen aspirate: Klebsiella Oxytoca, E coli 03/06/18 01:15 Abdomen wound: Klebsiella Oxytoca & Streptococcus, E coli, Klebs pneumoniae ESBL Subjective: no real c/o today, very tired Objective: Vital Signs Temp Pulse Resp BP Pulse Ox 36.6 C 99 28 H 125/59 H 97 03/12/18 12:00 03/12/18 12:37 03/12/18 12:00 03/12/18 12:37 03/12/18 12:00 Microbiology 03/11/18 13:30 Gram Stain - Final Abdomen - Other 03/06/18 11:45 Gram Stain - Final Abdomen - Aspirate Laboratory Results 03/12/18 03:20 03/12/18 03:20 03/11/18 03/12/18 03/13/18 05:59 05:59 05:59 Intake Total 2106 2050 Output Total 3855 1445 Balance -1749 605 Gen: very tired but oriented and appropriate HEENT Dry MM Neck Supple CV: RRR Chest: decreased bs B bases Abd: midline wound vac in place w serosang fluid, 2 JULISSA drains one with bloody fluid, one with serosang, very firm to palpation overall but no peritoneal signs : jimenez PICC c/d/i No rash, pallor - Time Spent With Patient Time Spent with Patient: greater than 35 minutes (case discussed w Dr Gonsalez and nursing) Time Spent with Patient: Greater than 35 minutes spent on this patients care, greater than 50% of time spent counseling, educating, and coordinating care regarding the above mentioned plan. ICD10 Worksheet Patient Problems: Problems Problem Status Onset Surgical wound infection Acute Bowel obstruction Acute
--- NOTE | 2018-03-12 15:43 | HOSPPROG ---
Hospitalist Progress Note Assessment/Plan: 82 yo F w h/o ovarian CA, recent surgery, admitted with intrabdominal abscess treated with IV abx and no surgery. 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 s/p surgery on 03/11 #Intra-abdominal abscess s/p IR drain, small bowel fistula -Rocephin, IV diflucan -Dr. Feliz performed Ex Lap today 03/11 -NPO #Klebsiella sepsis - leukocytosis/tachycardia with acute respiratory failure -sepsis physiology improved today #Ovarian cancer s/p recent SBO with SB resection #Acute respiratory failure -resp status improved -Has tachypnea today. Suspect hypervolemia. Obtain CXR and Lasix x 1. #PCMN #Nutrition: on TPN, NPO code: dnr proph:: SCD's as Lovenox was held Subjective: Feels SOB Objective: Vital Signs Temp Pulse Resp BP Pulse Ox 36.6 C 99 28 H 125/59 H 97 03/12/18 12:00 03/12/18 12:37 03/12/18 12:00 03/12/18 12:37 03/12/18 12:00 Microbiology 03/11/18 13:30 Gram Stain - Final Abdomen - Other 03/06/18 11:45 Gram Stain - Final Abdomen - Aspirate Laboratory Results 03/12/18 03:20 03/12/18 03:20 03/11/18 03/12/18 03/13/18 05:59 05:59 05:59 Intake Total 2106 2050 Output Total 3855 1445 Balance -1749 605 PT 16.3 SEC (12.0-15.0) H 03/11/18 08:55 INR 1.29 (0.83-1.16) H 03/11/18 08:55 - Physical Exam Constitutional: no apparent distress Eyes: PERRL Ears, Nose, Mouth, Throat: moist mucous membranes, hearing normal Cardiovascular: regular rate and rhythym, edema (trace) Respiratory: reduced air movement Skin: warm Musculoskeletal: generalized weakness Neurologic: AAOx3 Psychiatric: interacting appropriately, not anxious, not encephalopathic ICD10 Worksheet Patient Problems: Problems Problem Status Onset Surgical wound infection Acute Bowel obstruction Acute
[2018-03-12] MEDS: ACETAMINOPHEN 325 MG TAB PO PRN ×2 (18:15→22:06)
--- NOTE | 2018-03-12 19:00 | GOP ---
DATE OF OPERATION: 03/11/2018 SURGEON: Felix Feliz MD NON DESTRUCTIVE EVALUATION MANAGER: Marzena Lincoln, Nurse Practitioner. ANESTHESIA: General endotracheal anesthesia. ANESTHESIOLOGIST: Dr. Okeefe. PREOPERATIVE DIAGNOSIS: Abdominal abscess plus small bowel fistula. POSTOPERATIVE DIAGNOSIS: Abdominal abscess plus small bowel fistula. PROCEDURE PERFORMED: Exploratory laparotomy with drainage of retroperitoneal abscess. FINDINGS: Patient was found to have a large multiloculated collection in the right retroperitoneum and right gutter extending up to the anterior abdominal incision. We could find no definite fistula tract. However, the abdomen was essentially frozen and it was quite difficult to separate any identifiable loops of bowel. There were 2 enterotomies which were closed, one of which may have been a fistula tract, but it was unclear if it was the actual site of the problem or simply iatrogenic during the procedure. ESTIMATED BLOOD LOSS: Blood loss was less than 50 cc. There were no complications. DESCRIPTION OF PROCEDURE: The patient was taken to the operating room where she received satisfactory general endotracheal anesthesia by Dr. Okeefe. She was placed in supine position, prepped and draped in the usual sterile fashion. A midline abdominal incision was opened through the old scar. Careful dissection was done through the linea alba and the old sutures were removed The abscess cavity was identified. Using that passageway into the abdomen, careful dissection was done down into the right pelvis and up along the right lateral pelvic wall. Several pockets of purulent material were suctioned free and irrigated free. No ongoing drainage could be identified after clearing this material. The bowel was elevated above the lateral pelvic wall, but the loops could not be readily . Tedious dissection ensued. Two enterotomies were closed with a running 3-0 Prolene suture. One was in the transverse colon and one may have been the culprit in the right lateral abdominal cavity. After irrigating completely, 2 large 19-[place]ian JULISSA drains were brought out through separate stab incisions and placed in the abscess cavity. The wound was closed with an ABThera dressing and wound VAC after copious irrigation. She tolerated the procedure well. /[id number]/MODL MTDD
[2018-03-12] MEDS: TPN W/ FAMOTIDINE 1 EA BAG IV SCH (21:28)
[2018-03-12] MEDS: FLUCONAZOLE/NaCl 100 ML IV SCH (22:05)
[2018-03-13] MEDS: INSULIN REGULAR HUMAN 100 UNIT/ML UNIT SC SCH ×4 (00:34→19:09)
[2018-03-13] MEDS: BUPROPION HBR PO SCH (09:53)
[2018-03-13] MEDS: oxyCODONE IR 5 MG TAB PO PRN (09:53)
[2018-03-13] MEDS: SERTRALINE HCL 100 MG TAB PO SCH (09:53)
[2018-03-13] MEDS: METOPROLOL TARTRATE 100 MG TAB PO SCH (09:53)
--- NOTE | 2018-03-13 10:16 | SOAPPROG ---
SOAP Progress Note Assessment/Plan: Assessment: Assessment/Plan: 82 Y F c recent hx of laparotomy c bowel resection and adhesiolysis for SBO, now admitted with retroperitoneal abscess c communicating wound infection, s/p drainage, now s/p exlaparotomy c washout and exploration. Had frozen abdomen with two enterotomies repaired Now with feculent drainage from JULISSA 1 Will return to OR for exploration and washout. Since she has an open abdomen with feculent drainage, she needs to be in the SDU. Continue ABX - Continue TPN Continue jimenez catheter for accurate I and O's and surgical requirement. S: alert, was transferred to floor last night - looking into this. Getting pain medication O: alert, nad--sitting in chair, weak mmm ctab anteriorly rrr abd soft, hypoactive BS, vac to suction, drain # 1 with 40 cc feculent drainage and #2 with serosanguinous Plan: 03/13/18 10:09 Objective: Vital Signs Temp Pulse Resp BP Pulse Ox 36.8 C 78 16 139/70 H 97 03/13/18 08:00 03/13/18 09:53 03/13/18 08:00 03/13/18 09:53 03/13/18 08:00 Microbiology 03/11/18 13:30 Gram Stain - Final Abdomen - Other Laboratory Results 03/12/18 03:20 03/13/18 05:40 03/12/18 03/13/18 03/14/18 05:59 05:59 05:59 Intake Total 2050 916 Output Total 1445 1745 40 Balance 605 -829 -40 PT 16.3 SEC (12.0-15.0) H 03/11/18 08:55 INR 1.29 (0.83-1.16) H 03/11/18 08:55 ICD10 Worksheet Patient Problems: Problems Problem Status Onset Surgical wound infection Acute Bowel obstruction Acute
[2018-03-13] MEDS: ERTAPENEM 1 GM in NS 100 ML IV SCH (10:19)
--- NOTE | 2018-03-13 10:30 | ASMTCMCOM ---
CM Note CM Note Notes: Spoke with patient's daughter Yayn. Family has decided they do not want patient to return to [facility]. They are still deciding on which facility they prefer and will let Case Management know. Patient will return to OR for further exploration and washout of retroperitoneal abscess tomorrow. She is on TPN and IV abx x 2. Case Management will follow. Current CM Discharge plan: SNF, location TBD Date Signed: 03/13/2018 10:30 AM Electronically Signed By:Jennifer Levin RN
[2018-03-13] MEDS: HYDROmorphONE/DILAUDID 1 MG/ML INJ IVP PRN (12:17)
--- NOTE | 2018-03-13 12:27 | PCMIDPN ---
Assessment/Plan: Assessment/Plan: * Intra-abdominal abscess status post small bowel resection status post laparotomy with drainage of abscess and closure of enterotomy x2: Recurrent feculent drainage postoperatively from 1 JULISSA drain. Plans for repeat exploration in OR per Dr. Gonsalez today. Cultures from most recent surgery showing growth of Klebsiella pneumoniae. Prior isolate was ESBL producing organism. Continue ertapenem and fluconazole. * Klebsiella oxytoca bacteremia: Associated with above intra-abdominal abscess. Isolate is susceptible to ertapenem. * Bacteremia: Blood culture showing both Klebsiella and Staphylococcus hominis. Unclear significance of Staphylococcus hominis in this setting although most likely represents contaminant. 03/13/18 12:24 03/13/18 12:26 Subjective: Patient with recurrent feculent drainage from JULISSA x1. Plans for repeat washout in OR and expiration this afternoon. Objective: Vital Signs Temp Pulse Resp BP Pulse Ox 36.8 C 78 16 139/70 H 97 03/13/18 08:00 03/13/18 09:53 03/13/18 08:00 03/13/18 09:53 03/13/18 08:00 Microbiology 03/11/18 13:30 Gram Stain - Final Abdomen - Other Laboratory Results 03/12/18 03:20 03/13/18 05:40 03/12/18 03/13/18 03/14/18 05:59 05:59 05:59 Intake Total 2050 916 Output Total 1445 1745 40 Balance 605 -829 -40 Ertapenem # 4 Fluconazole # 8 Operative culture with growth of Klebsiella pneumoniae - Physical Exam General Appearance: alert, no apparent distress, non-toxic EENT: dry mucous membranes, No scleral icterus, No thrush Respiratory: lungs clear, No respiratory distress Cardiac/Chest: regular rate, rhythm Abdomen: non-tender, other (Feculent output in JULISSA x1, serosanguineous in 2nd), No distended - Line/s RUE PICC Lines: No drainage, No erythema ICD10 Worksheet Patient Problems: Problems Problem Status Onset Surgical wound infection Acute Bowel obstruction Acute
--- NOTE | 2018-03-13 13:50 | HOSPPROG ---
Hospitalist Progress Note Assessment/Plan: 82 yo F w h/o ovarian CA, recent surgery, admitted with intra-abdominal abscess treated with IV abx and no surgery. 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 Feliz performed Ex Lap 03/11, Dr Gonsalez doing ex lap today -NPO bc of surgeries/infection #Klebsiella sepsis - leukocytosis/tachycardia with acute respiratory failure -discussed care plan with Dr Morrissey -ABX per ID -transferred back to SDU today #Ovarian cancer s/p recent SBO with SB resection -oncology not seeing her as inpt #Acute respiratory failure -overall improved per vitals/reports #Protein Calorie Malnutrition -TPN, NPO #hypothyroid -IV replacement #hyperglycemia -check A1c for completeness (no Hx DM, likely from infection/stress) #depression #anemia -stable PCP Dr Presley Tinoco DNR DVT prophy: SCD's as Lovenox was held for surgery DISPO > 48 hours because of surgery, IV antibiotics, SDU status Subjective: In surgery, unable to examine/round, did chart review. Objective: Vital Signs Temp Pulse Resp BP Pulse Ox 98.2 F 68 20 128/54 H 99 03/13/18 08:00 03/13/18 12:00 03/13/18 12:00 03/13/18 12:00 03/13/18 12:00 Microbiology 03/11/18 13:30 Gram Stain - Final Abdomen - Other 03/06/18 11:45 Gram Stain - Final Abdomen - Aspirate Anaerobic Culture - Final Klebsiella Oxytoca Escherichia Coli Clostridium Perfringens Laboratory Results 03/12/18 03:20 03/13/18 05:40 03/12/18 03/13/18 03/14/18 11:59 11:59 11:59 Intake Total 2050 916 Output Total 1445 1785 Balance 605 -869 PT 16.3 SEC (12.0-15.0) H 03/11/18 08:55 INR 1.29 (0.83-1.16) H 03/11/18 08:55 ICD10 Worksheet Patient Problems: Problems Problem Status Onset Surgical wound infection Acute Bowel obstruction Acute
[2018-03-13] MEDS ORDERED: PROPOFOL/EMULSION 500 MG/50 ML BOTTLE IV ONE (15:55)
[2018-03-13] MEDS ORDERED: fentaNYL 250 MCG/5 ML INJ ONE (15:59)
--- NOTE | 2018-03-13 16:10 | PDANEPAE ---
ANE History of Present Illness 82 year old female with history of ovarian cancer and abdominal abscess s/p abdominal surgery with drain here for wound vac and I and D. History of htn. ANE Past Medical History - Cardiovascular History Hx Hypertension: Yes Hx Arrhythmias: No Hx Chest Pain: No Hx Coronary Artery / Peripheral Vascular Disease: No Hx CHF / Valvular Disease: No Hx Palpitations: No - Pulmonary History Hx COPD: No Hx Asthma/Reactive Airway Disease: No Hx Recent Upper Respiratory Infection: No Hx Oxygen in Use at Home: Yes O2 in Use at Home (L/minute): 2 Hx Sleep Apnea: Yes Sleep Apnea Screening Result - Last Documented: Positive - Endocrine History Hx Diabetes: No Hypothyroid: No Hyperthyroid: No Obesity: yes, mild - Renal History Hx Renal Disorders: No - Liver History Hx Hepatic Disorders: No - Neurological & Psychiatric Hx Hx Neurological and Psychiatric Disorders: No - Cancer History Hx Cancer: Yes Cancer History Comment: ovarian ca - Congenital Disorder History Hx Congenital Disorders: No - GI History GERD: no Hx Gastrointestinal Disorders: Yes Gastrointestinal History Comment: small bowel fistula - Chronic Pain History Chronic Pain: No ANE Review of Systems Review of systems is: negative Review of Systems: - Exercise capacity METS (RN): 2 METS ANE Patient History - Allergies Allergies/Adverse Reactions: No Known Allergies Allergy (Verified 01/03/18 11:58) - Home Medications Home Medications: Aspirin [Aspirin 81mg (*)] 81 mg PO HS 05/03/16 [Last Taken Unknown] Simvastatin [Zocor] 40 mg PO HS 05/03/16 [Last Taken Unknown] Docusate Sodium [Colace 100 MG (*)] 100 mg PO DAILY 02/18/18 [Last Taken Unknown ] Levothyroxine [Synthroid 25 mcg (*)] 25 mcg PO DAILY06 #0 02/18/18 [Last Taken Unknown] Bupropion HBr [Aplenzin] 348 mg PO DAILY 02/20/18 [Last Taken Unknown] Metoprolol Tartrate [Lopressor 100 mg (*)] 100 mg PO BID 02/20/18 [Last Taken Unknown] Multivitamins [Multivitamin (*)] 1 tab PO DAILY 02/20/18 [Last Taken Unknown] Sertraline HCl [Zoloft 100mg (*)] 100 mg PO DAILY 02/20/18 [Last Taken Unknown] Acetaminophen [Tylenol 325mg (*)] 650 mg PO Q4 PRN 03/05/18 [Last Taken Unknown] Herbals/Supplements -Info Only 1 ea PO DAILY 03/05/18 [Last Taken Unknown] Melatonin [Melatonin 3 MG (*)] 3 mg PO HS 03/05/18 [Last Taken Unknown] Sulfamethox/Tmp 800/160 mg [Bactrim Ds] 1 tab PO BID 03/05/18 [Last Taken Unknown] traMADol [Ultram 50 mg (*)] 50 mg PO Q4 PRN 03/05/18 [Last Taken Unknown] - NPO status NPO Since - Liquids (Date): 03/13/18 NPO Since - Liquids (Time): 09:00 NPO Since - Solids (Date): 03/12/18 NPO Since - Solids (Time): 21:45 - Smoking Hx Smoking Status: Never smoked - Alcohol Use Alcohol Use: None ANE Labs/Vital Signs - Labs Result Diagrams: 03/12/18 03:20 03/13/18 05:40 - Vital Signs Blood Pressure: 128/54 Heart Rate: 68 Respiratory Rate: 20 O2 Sat (%): 99 Height: 162.56 cm Weight: 79.7 kg ANE Physical Exam - Airway Neck exam: decreased ROM Mallampati Score: Class 2 Mouth exam: normal dental/mouth exam - Pulmonary Pulmonary: no respiratory distress - Cardiovascular Cardiovascular: regular rate and rhythym - ASA Status ASA Status: III, E ANE Anesthesia Plan Anesthesia Plan: general endotracheal anesthesia
[2018-03-13] MEDS ORDERED: NALOXONE HCL 0.4 MG/ML INJ IVP PRN (16:29)
[2018-03-13] MEDS ORDERED: LABETALOL HCL 20 MG/4 ML INJ IVP PRN (16:29)
[2018-03-13] MEDS ORDERED: fentaNYL 100 MCG/2 ML INJ IVP PRN (16:29)
[2018-03-13] MEDS: LEVOTHYROXINE IVP SCH (17:15)
--- NOTE | 2018-03-13 17:18 | POSTOPPROG ---
Post Op Note Date of Operation: 03/13/18 Surgeon: Altagracia Gonsalez Anesthesiologist: pankaj Anesthesia: GET(General Endotracheal) Pre-op Diagnosis: open abdomen with fistula Post-op Diagnosis: same Indication: 82 yo with open abdomen, drains putting out succus today Procedure: ex lap, suture repair enterotomy, ab thera Findings: two pills, BR?74 and BR 348 Inf/Abcess present in the surg proc area at time of surgery?: Yes Depth: Organ Space EBL: Minimal Drains: Tirso Alan, Wound Vac
--- NOTE | 2018-03-13 17:30 | POSTANESTH ---
Post Anesthetic Evaluation Cardiovascular Status: Normal, Stable Respiratory Status: Normal, Stable Level of Consciousness/Mental Status: Moderately Sleepy Pain Control: Adequate, Prn Tx Ordered Nausea/Vomiting Control: Adequate, Prn Tx Ordered Complications Possibly Related to Anesthesia: None Noted
--- NOTE | 2018-03-13 18:36 | GOP ---
DATE OF OPERATION: 03/13/2018 SURGEON: Altagracia Gonsalez MD ANESTHESIA: General. ANESTHESIOLOGIST: Lexie Sanders MD. PREOPERATIVE DIAGNOSIS: Open abdomen with fistula. POSTOPERATIVE DIAGNOSIS: Open abdomen with dehiscence at staple line. PROCEDURE PERFORMED: Exploratory laparotomy, washout, suture repair of staple line, and ABThera placement. FINDINGS: She had a dehiscence at the staple line. No other areas of contamination were noted. SPECIMENS: None. ESTIMATED BLOOD LOSS: 5 cc. INDICATIONS: The patient is an 82-year-old who had surgery and then was recently taken back for a fistula. Today, I noted that she had succus and stool in her drains. I booked her for the OR. DESCRIPTION OF PROCEDURE: Patient was brought into the operating room, placed supine on the table, and general anesthesia was administered. Her abdomen was prepped and draped in the usual sterile fashion after I personally removed the ABThera device. The prolene suture line anteriorly was intact without evidence of leak. I had clipped the drains preoperatively and was able to follow them deep into the retroperitoneum. Her abdomen was frozen. There were no distinguishing bowel loops. In the central retroperitoneum, I was able to see succus and two pills. The one read BR unknown number 74 and the other was BR 348 which were removed. I did not see any additional areas of concern laterally. Remaining drains removed. I performed irrigation with 3 L until there was clear return. I then noted that there was a puckering and succus at the prior staple line. With a 3-0 Vicryl, I then tried to imbricate as best I could the area that was breaking down by the staple line. I performed additional irrigation. I also placed a lap in the abdomen and pressed on the frozen abdomen, and there was no additional succus noted. I placed a 15 round silicone drain and sutured this into place with 3-0 nylon. I put this near the suture repair but not directly under it because I did not want any additional trauma to this delicate tissue. I placed an ABThera device. She was awakened in the operating room, extubated, transferred to PACU in stable condition. /[id number]/MODL MTDD
[2018-03-13] MEDS: FLUCONAZOLE/NaCl 100 ML IV SCH (21:13)
[2018-03-13] MEDS: TPN W/ FAMOTIDINE 1 EA BAG IV SCH (21:13)
[2018-03-13] MEDS: MELATONIN 3 MG TAB PO SCH (21:14)
[2018-03-14] MEDS: INSULIN REGULAR HUMAN 100 UNIT/ML UNIT SC SCH ×4 (00:12→19:07)
[2018-03-14] MEDS: DOCUSATE SODIUM 100 MG CAP PO SCH (08:21)
[2018-03-14] MEDS: LEVOTHYROXINE IVP SCH (08:22)
[2018-03-14] MEDS: ERTAPENEM 1 GM in NS 100 ML IV SCH (08:22)
--- NOTE | 2018-03-14 08:53 | SOAPPROG ---
SOAP Progress Note Assessment/Plan: Assessment/Plan: 82 Y F c recent hx of laparotomy c bowel resection and adhesiolysis for SBO, now admitted with retroperitoneal abscess c communicating wound infection, s/p drainage, now s/p exlaparotomy c washout and exploration, POD#3, exlaparotomy c washout and oversewing of anastomosis, POD#1. Drains look good today. Afebrile. WBCs slightly up today. Enteric fistula. Anastomosis oversewn. Drains are serosanguinous today. Ileus. Continue NPO. May have some ice chips. On TPN. Nausea. Continue zofran prn. Pain. Has pain medicine ordered. Continue jimenez catheter for accurate I and O's and surgical requirement. Abx. ID following. Continue current care. Will need to return to OR for exploration Wednesday or Wednesday. Patient has open abdomen with abthera wound vac. It will either be replaced or if abdomen clean, fascia could potentially by closed. S: alert, feeling ok. visiting with daughter. O: alert, nad, up in chair mmm ctab anteriorly rrr abd soft, rare BS, vac to suction, maxime drain and vac drainage nonbilious, nonfeculent. 03/14/18 08:50 Objective: Vital Signs Temp Pulse Resp BP Pulse Ox 36.6 C 83 16 133/55 H 97 03/14/18 08:00 03/14/18 08:00 03/14/18 08:00 03/14/18 08:00 03/14/18 08:00 Microbiology 03/11/18 13:30 Gram Stain - Final Abdomen - Other 03/06/18 11:45 Gram Stain - Final Abdomen - Aspirate Anaerobic Culture - Final Klebsiella Oxytoca Escherichia Coli Clostridium Perfringens Laboratory Results 03/14/18 05:00 03/14/18 05:00 03/13/18 03/14/18 03/15/18 05:59 05:59 05:59 Intake Total 916 4303 Output Total 1745 2175 Balance -829 1768 PT 16.3 SEC (12.0-15.0) H 03/11/18 08:55 INR 1.29 (0.83-1.16) H 03/11/18 08:55 ICD10 Worksheet Patient Problems: Problems Problem Status Onset Surgical wound infection Acute Bowel obstruction Acute
[2018-03-14] MEDS: HYDROmorphONE/DILAUDID 1 MG/ML INJ IVP PRN ×3 (10:21→21:34)
--- NOTE | 2018-03-14 11:35 | PCMIDPN ---
Assessment/Plan: Assessment: Postoperative abdominal leak. Covered with ertapenem and fluconazole. Drains from surgery look good. Serous fluid only. No ongoing fevers. Patient clinically is in good spirits. Plan to continue both the ertapenem and fluconazole. She is scheduled to return to the operating room tomorrow or Wednesday for final washout and closure. Plan: 1. Continue IV ertapenem and fluconazole. 2. Follow her drain output in her clinical improvement. 3. Follow up on surgical results in the next 1-2 days. 03/14/18 11:30 Subjective: Patient is awake and alert lying in her bed. Family member in room. She has no new complaints apart from irritation and pain in the right upper thigh. No fevers or chills. Objective: Ertapenem # 5 Fluconazole # 9 Vital Signs Temp Pulse Resp BP Pulse Ox 36.6 C 83 16 133/55 H 97 03/14/18 08:00 03/14/18 08:00 03/14/18 08:00 03/14/18 08:00 03/14/18 08:00 Microbiology 03/11/18 13:30 Gram Stain - Final Abdomen - Other 03/06/18 11:45 Gram Stain - Final Abdomen - Aspirate Anaerobic Culture - Final Klebsiella Oxytoca Escherichia Coli Clostridium Perfringens Laboratory Results 03/14/18 05:00 03/14/18 05:00 03/13/18 03/14/18 03/15/18 05:59 05:59 05:59 Intake Total 916 4303 Output Total 1745 1695 Balance -829 2608 - Physical Exam General Appearance: WD/WN, alert, no apparent distress, non-toxic Respiratory: lungs clear, normal breath sounds, No respiratory distress Cardiac/Chest: regular rate, rhythm, No tachycardia Extremities: non-tender, normal inspection, No inflammation Skin: normal color, warm/dry, No rash Neuro/Psych: alert, normal mood/affect, oriented x 3 ICD10 Worksheet Patient Problems: Problems Problem Status Onset Surgical wound infection Acute Bowel obstruction Acute
--- NOTE | 2018-03-14 12:42 | HOSPPROG ---
Hospitalist Progress Note Assessment/Plan: DIAGNOSES: 82 yo F w h/o ovarian CA, recent surgery, admitted with intra-abdominal abscess treated with IV abx and no surgery. 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 Feliz performed Ex Lap 03/11, Dr Wallace yarbroughplored 03/13 with repair of dehiscence -no post op complications from yest #Klebsiella sepsis - sepsis improved nicely -discussed care plan with Dr Morrissey -ABX per ID #Ovarian cancer s/p recent SBO with SB resection -oncology not seeing her as inpt #Acute respiratory failure -overall improved per vitals/reports #Protein Calorie Malnutrition -TPN, NPO #hypothyroid -IV replacement #hyperglycemia on TPN but with HgA1c of 5.8 -continue monitor and adjust tx as indicated with TPN #depression -stable #anemia, normocytic multifactorial with cancer, malnutrition, infection, mulitple surgeries ... -slight decrease in Hg today may be dilutional with surgery as minimal blood loss PLANS: * continue supportive care in SDU * repeat Hg in am * continue abx * wound care * lovenox for DVT proph on hold with decreasing Hg at 7+ and another surgery planned next day or two * continue TPN for moment and follow sugars, lipids, liver labs * PT OT * DNR per her wishes SUBJECTIVE: feels better with less pain after yesterday's surg, still very weak and exhausted no chills or dyspnea OBJECTIVE Vitals reviewed: stable without fever Guide, my review: sinus Exam: alert oriented skin warm dry, some palor resps not labored lungs diminished but otherwise clear BSs heart regular abd dressing dry, some mild distension limbs warm, no edema iv site ok Labs: hg down a bit to 7.4, wbc a bit higher sugars in good range overall past two days alb 1.8 Objective: Vital Signs Temp Pulse Resp BP Pulse Ox 36.7 C 88 18 136/64 H 98 03/14/18 12:00 03/14/18 12:00 03/14/18 12:00 03/14/18 12:00 03/14/18 12:00 Microbiology 03/11/18 13:30 Gram Stain - Final Abdomen - Other 03/06/18 11:45 Gram Stain - Final Abdomen - Aspirate Anaerobic Culture - Final Klebsiella Oxytoca Escherichia Coli Clostridium Perfringens Laboratory Results 03/14/18 05:00 03/14/18 05:00 03/13/18 03/14/18 03/15/18 06:59 06:59 06:59 Intake Total 916 4303 Output Total 1745 1695 Balance -829 2608 PT 16.3 SEC (12.0-15.0) H 03/11/18 08:55 INR 1.29 (0.83-1.16) H 03/11/18 08:55 - Time Spent With Patient Time Spent with Patient: greater than 35 minutes Time Spent with Patient: Greater than 35 minutes spent on this patients care, greater than 50% of time spent counseling, educating, and coordinating care regarding the above mentioned plan. ICD10 Worksheet Patient Problems: Problems Problem Status Onset Surgical wound infection Acute Bowel obstruction Acute
[2018-03-14] MEDS ORDERED: oxyCODONE IR 5 MG TAB PO PRN (15:57)
[2018-03-14] MEDS: FLUCONAZOLE/NaCl 100 ML IV SCH (19:27)
[2018-03-14] MEDS: MELATONIN 3 MG TAB PO SCH (20:06)
[2018-03-14] MEDS: TPN W/ FAMOTIDINE 1 EA BAG IV SCH (21:04)
[2018-03-15] MEDS: INSULIN REGULAR HUMAN 100 UNIT/ML UNIT SC SCH ×4 (00:37→17:27)
[2018-03-15 05:23] LABS: PLATELET COUNT 322 10^3/uL (150-400)
[2018-03-15] MEDS: HYDROmorphONE/DILAUDID 1 MG/ML INJ IVP PRN ×3 (07:47→18:22)
[2018-03-15] MEDS: LEVOTHYROXINE IVP SCH (07:49)
--- NOTE | 2018-03-15 09:39 | SOAPPROG ---
SOAP Progress Note Assessment/Plan: Assessment/Plan: 82 Y F c recent hx of laparotomy c bowel resection and adhesiolysis for SBO, now admitted with retroperitoneal abscess c communicating wound infection, s/p drainage, now s/p exlaparotomy c washout and exploration, POD#4, exlaparotomy c washout and oversewing of anastomosis, POD#2. Low grade fever overnight, 37.4. CBC largely unchanged--H&H stable, WBCs 11.6. JULISSA drain still serosanguinous. Vac drainage thin, dark--appears to be old sanguinous drainage but can't r/o feculent component. Continue NPO +ice chips, sips water. Continue TPN. Continue jimenez catheter. Plan for return to OR tomorrow, 03/16. Scheduled time is 14:45 as of now. Exploration, then replacement of abthera vac versus fascial closure with normal vac pending findings. Appreciate ID, hospitalist input. Seen with Dr. Feliz this am. S: alert, sitting up in chair. happy to have ice chips. O: alert, nad, up in chair, appears fatigued, but this has been baseline mmm ctab anteriorly rrr abd soft, vac to suction, drains--see above 03/15/18 09:54 Objective: Vital Signs Temp Pulse Resp BP Pulse Ox 36.9 C 93 18 141/61 H 95 03/15/18 07:27 03/15/18 07:27 03/15/18 07:27 03/15/18 07:27 03/15/18 07:27 Microbiology 03/11/18 13:30 Gram Stain - Final Abdomen - Other Laboratory Results 03/15/18 05:00 03/14/18 05:00 03/14/18 03/15/18 03/16/18 05:59 05:59 05:59 Intake Total 4303 2040 Output Total 1695 1770 Balance 2608 270 PT 16.3 SEC (12.0-15.0) H 03/11/18 08:55 INR 1.29 (0.83-1.16) H 03/11/18 08:55 ICD10 Worksheet Patient Problems: Problems Problem Status Onset Surgical wound infection Acute Bowel obstruction Acute
[2018-03-15] MEDS: ERTAPENEM 1 GM in NS 100 ML IV SCH (09:48)
[2018-03-15] MEDS ORDERED: ENOXAPARIN 40 MG/0.4 ML SYR SC SCH (10:45)
--- NOTE | 2018-03-15 11:26 | HOSPPROG ---
Hospitalist Progress Note Assessment/Plan: 82 yo F w h/o ovarian CA, recent surgery, admitted with intra-abdominal abscess treated with IV abx and no surgery. 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 Patient currently has a wound VAC in place and a JULISSA drain. Plan for washout tomorrow with Dr. Feliz and possible partial closure of her abdominal wound. Currently she is quite fatigued but her pain is adequately controlled #Intra-abdominal abscess s/p IR drain, small bowel fistula, complicated by Klebsiella sepsis. Status post exploratory lap on 03/11 and 03/13 with repair of dehiscence. Followed by Dr. Feliz and Dr. Gonsalez. * On ertapenem and fluconazole * Followed by infectious disease * Likely washout tomorrow by Dr. Feliz SVT: s/p 8 beat run of SVT, previously on metoprolol at home. Pt NPO, will restart at a lower dose, given soft BP * add metoprolol 25mg bid (previously on 100 bid, titrate up as tolerated.) #Ovarian cancer s/p recent SBO with SB resection * oncology not seeing her as inpt #Acute respiratory failure * overall improved per vitals/reports #Protein Calorie Malnutrition * TPN, NPO, okay for ice chips and oral meds today #hypothyroid * IV replacement #hyperglycemia on TPN but with HgA1c of 5.8 * continue monitor and adjust tx as indicated with TPN #depression * stable #anemia, normocytic multifactorial with cancer, malnutrition, infection, mulitple surgeries ... * slight decrease in Hbg over the last 2 days * Consider transfusion if patient continues to be fatigued. # DVT prophylaxis, Lovenox on hold due to worsening anemia and possible surgery tomorrow. Given high risk of the clot will give 1 dose of Lovenox today and follow hemoglobin in the a.m.. If it drops below 7 she will need a transfusion Subjective: Patient new to me and chart reviewed complains of fatigue and some pain but otherwise doing relatively well no chest pain or shortness of breath Objective: Vital Signs Temp Pulse Resp BP Pulse Ox 36.9 C 93 18 141/61 H 95 03/15/18 07:27 03/15/18 07:27 03/15/18 07:27 03/15/18 07:27 03/15/18 07:27 Microbiology 03/11/18 13:30 Gram Stain - Final Abdomen - Other Laboratory Results 03/15/18 05:00 03/14/18 05:00 03/14/18 03/15/18 03/16/18 05:59 05:59 05:59 Intake Total 4303 2040 Output Total 1695 1770 Balance 2608 270 PT 16.3 SEC (12.0-15.0) H 03/11/18 08:55 INR 1.29 (0.83-1.16) H 03/11/18 08:55 - Physical Exam Constitutional: chronically ill appearing, uncomfortable Eyes: PERRL Ears, Nose, Mouth, Throat: moist mucous membranes Cardiovascular: regular rate and rhythym, systolic murmur Respiratory: no respiratory distress, reduced air movement (Basis) Gastrointestinal: tenderness, other (Wound VAC over abdomen) Genitourinary: jimenez in urethra Skin: No normal color (Pale) Musculoskeletal: generalized weakness Neurologic: AAOx3 Psychiatric: interacting appropriately, not anxious ICD10 Worksheet Patient Problems: Problems Problem Status Onset Bowel obstruction Acute Surgical wound infection Acute
[2018-03-15] MEDS: DOCUSATE SODIUM 100 MG CAP PO SCH (11:50)
--- NOTE | 2018-03-15 12:27 | PCMIDPN ---
Assessment/Plan: # Klebsiella bacteremia from polymicrobial pelvic abscess, drains and wound vac with feculent material. Multiple trips to OR, planned return tomorrow. Minimal abdominal pain. WBC stable. AF. Cr yesterday stable --continue ertapenem and empiric fluconazole --patient is NPO so continue IV fluconazole meds Ertapenem 1 g IV daily, #6 fluconazole 200mg IV daily #10 TPN Microbiology 03/05/18 18:15 Blood Cx /2: Klebsiella Oxytoca and staph hominis 03/06/18 11:45 Abdomen aspirate: Klebsiella Oxytoca, E coli 03/06/18 01:15 Abdomen wound: Klebsiella Oxytoca & Streptococcus, E coli, Klebs pneumoniae ESBL Subjective: upbeat, no abdominal pain. Sat in chair a couple hours. Worked w PT. 2 daughters at bedside. Objective: Vital Signs Temp Pulse Resp BP Pulse Ox 36.4 C 95 14 131/58 H 93 03/15/18 12:00 03/15/18 12:00 03/15/18 12:00 03/15/18 12:00 03/15/18 12:00 Microbiology 03/11/18 13:30 Gram Stain - Final Abdomen - Other Laboratory Results 03/15/18 05:00 03/14/18 05:00 03/14/18 03/15/18 03/16/18 05:59 05:59 05:59 Intake Total 4303 2040 Output Total 1695 1770 Balance 2608 270 Gen: chr ill appearance but more energetic today HEENT Dry MM Neck Supple CV: RRR Chest: decreased bs B bases Abd: midline wound vac in place w brown material in line, 1 JULISSA drains w brown fluid, overall abdomen softer, NT, occasional bowel sound LLQ : jimenez PICC c/d/i No rash, pallor - Time Spent With Patient Time Spent with Patient: greater than 35 minutes Time Spent with Patient: Greater than 35 minutes spent on this patients care, greater than 50% of time spent counseling, educating, and coordinating care regarding the above mentioned plan. ICD10 Worksheet Patient Problems: Problems Problem Status Onset Surgical wound infection Acute Bowel obstruction Acute
[2018-03-15] MEDS ORDERED: METOPROLOL TARTRATE 5 MG/5 ML INJ IVP ONE (18:30)
[2018-03-15] MEDS: NS 1,000 ML IV SCH (18:31)
[2018-03-15] MEDS: MELATONIN 3 MG TAB PO SCH (19:09)
--- NOTE | 2018-03-15 19:31 | GCON ---
CRITICAL CARE CONSULTATION. DATE OF CONSULTATION: 03/15/2018 HISTORY OF PRESENT ILLNESS: This patient is an 82-year-old female who was admitted on March 05 aft er a recent laparoscopic hernia repair in February that was complicated by ongoing drainage and absce ss formation. She underwent abscess drainage by Interventional Radiology on March 06, which was fo llowed by some sepsis physiology and increased oxygen requirement. This improved, but she went back to the OR on March 11 to undergo laparotomy and washout and required an additional OR trip on the where there was some over-sewing done. There had been some concern about fistula, but it was not clear to me this was ever actually located. On the she was stable and she was on Med Surg statu s but today is listed as step-down unit. She is planning to return to the OR tomorrow. It is not cl ear to me why her status was upgraded. She has not been hypotensive. She does complain of some ongo ing fatigue, but her pain is reasonably well controlled. She is not short of breath and she is on a minimum oxygen requirement. REVIEW OF SYSTEMS: Otherwise negative. PAST MEDICAL HISTORY: Includes ovarian cancer, bowel obstruction, hypertension, depression, hypothyr oidism, and hyperlipidemia. PREVIOUS SURGERIES: Also include hernia repair. CURRENT MEDICATIONS: Include Tylenol, Proventil, aspirin, Lipitor, Colace, Lovenox, ertapenem, fluco nazole, Dilaudid, insulin, Synthroid, melatonin, metoprolol, Zofran, oxycodone, Zoloft, normal saline , TPN, Ultram, trazodone. PHYSICAL EXAM: VITAL SIGNS: She has been afebrile. Her blood pressure is 140/60, heart rate of 93, respirations 18, oxygen saturation 95% on 2 L. GENERAL: She was awake and alert, no apparent distres s and able to speak in full sentences without using accessory muscles for breathing. HEENT: Pupils e qually round and reactive to light, nonicteric and noninjected. Mucous membranes moist without eryth almita or exudate. NECK: Supple without adenopathy or jugular vein distention. LUNGS: Breath sounds jules ar to auscultation bilaterally without wheezes, rubs or rales. HEART: Regular rate and rhythm witho ut murmurs, rubs, or gallops. ABDOMEN: Dressings were clean and dry and nontender with hypoactive bow el sounds. EXTREMITIES: Showed no clubbing, cyanosis, or edema. NEUROLOGIC: Grossly nonfocal. OBJECTIVE DATA: Includes white count 11.6 which is lower than yesterday, hematocrit 23.7, which has been pretty stable, platelets of 322, glucose has been normal. ASSESSMENT AND PLAN: 1. Intraabdominal abscess with bacteremia, where she has grown Klebsiella from blood cultures and wo und cultures also included Clostridium perfringens. From Infectious perspective she seems to be doin g fairly well. She remains on ertapenem and fluconazole and is no longer hypotensive. She is planni ng to go to the OR tomorrow, hopefully for her final closure. 2. Respiratory failure with hypoxemia. This appears to have mostly resolved. I encouraged her to c ontinue incentive spirometry and out of bed. Otherwise, she appears to be relatively stable at this time. /[id number]/MODL
[2018-03-15] MEDS ORDERED: METOPROLOL TARTRATE 25 MG TAB PO SCH (21:00)
--- NOTE | 2018-03-15 21:33 | ASMTCMCOM ---
CM Note CM Note Notes: "Family Meeting" Trailer Technician and CM met with patient's daughters: Yany and Yisel. They report that their mother is getting very tired of the multiple surgeries. They report that she has had a difficult life: Ovarian CA, chemo, multiple surgeries, Major Depression has been in an In-pt setting 2x and received shock txs at her request. 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 Wanting to see h ow this next washout goes and if not well may be interested in Palliative consult. Daughters felt that if patient goes to rehab they would like to send referrals to [facility] and [facility]. Referrals sent. Pasrr submitted for Level 2 today. CM to follow. Date Signed: 03/15/2018 02:38 PM Electronically Signed By:Tonie Byrd LCSW
[2018-03-15] MEDS: TPN W/ FAMOTIDINE 1 EA BAG IV SCH (21:58)
[2018-03-15] MEDS: FLUCONAZOLE/NaCl 100 ML IV SCH (21:58)
[2018-03-16] MEDS: INSULIN REGULAR HUMAN 100 UNIT/ML UNIT SC SCH ×4 (00:02→17:59)
[2018-03-16] MEDS: METOPROLOL TARTRATE 5 MG/5 ML INJ IVP SCH ×4 (00:02→18:05)
[2018-03-16] MEDS: HYDROmorphONE/DILAUDID 1 MG/ML INJ IVP PRN ×4 (04:28→21:03)
[2018-03-16 06:57] LABS: PLATELET COUNT 305 10^3/uL (150-400)
--- NOTE | 2018-03-16 08:55 | SOAPPROG ---
SOAP Progress Note Assessment/Plan: Assessment/Plan: 82 Y F c recent hx of laparotomy c bowel resection and adhesiolysis for SBO, now admitted with retroperitoneal abscess c communicating wound infection, s/p drainage, now s/p exlaparotomy c washout and exploration, POD#5, exlaparotomy c washout and oversewing of anastomosis, POD#3. JULISSA drain bilious, potentially feculent. To OR today for exploration and washout. Will likely need replacement of open abdomen abthera vac. NPO for surgery this afternoon, schedule for 14:45 as of now. Continue TPN. Continue jimenez catheter. Continue invanz, fluconozole. Appreciate ID, hospitalist input. Also seen by Dr. Feliz earlier this morning. Discussed with daughter yesterday. S: sleeping, but easily arousable and appropriate. no questions. O: alert, nad mmm ctab anteriorly rrr abd soft, vac to suction, drains dark green/brown, thin--bilious, possibly feculent. 03/16/18 08:51 Objective: Vital Signs Temp Pulse Resp BP Pulse Ox 36.4 C 90 17 125/74 H 96 03/16/18 08:00 03/16/18 08:00 03/16/18 08:00 03/16/18 08:00 03/16/18 08:00 Microbiology 03/06/18 11:45 Mycobacterial Smear (UZAIR) - Final Abdomen - Aspirate 03/11/18 13:30 Gram Stain - Final Abdomen - Other Laboratory Results 03/16/18 06:30 03/16/18 06:30 03/15/18 03/16/18 03/17/18 05:59 05:59 05:59 Intake Total 2040 2154 Output Total 1770 3935 Balance 270 -361 PT 16.3 SEC (12.0-15.0) H 03/11/18 08:55 INR 1.29 (0.83-1.16) H 03/11/18 08:55 ICD10 Worksheet Patient Problems: Problems Problem Status Onset Surgical wound infection Acute Bowel obstruction Acute
[2018-03-16] MEDS: DOCUSATE SODIUM 100 MG CAP PO SCH (09:01)
[2018-03-16] MEDS: ERTAPENEM 1 GM in NS 100 ML IV SCH (09:05)
[2018-03-16] MEDS: LEVOTHYROXINE IVP SCH (10:22)
--- NOTE | 2018-03-16 11:07 | PCMIDPN ---
Assessment/Plan: Assessment/Plan: * Intra-abdominal abscess status post small bowel resection status post laparotomy with drainage of abscess: Plans for return operative evaluation later this afternoon. Continues to have feculent appearing material from wound VAC. Continue ertapenem and fluconazole. Most recent cultures with growth of mixed enteric anshul. * Klebsiella oxytoca bacteremia: Associated with above intra-abdominal abscess. No clinical findings to suggest persistent bacteremia. * Staphylococcus hominis bacteremia: Suspect most consistent with contamination given not typical enteric pathogen. 03/16/18 11:04 Subjective: Patient with mild abdominal pain. Plans for return to OR today for repeat operative assessment. Objective: Vital Signs Temp Pulse Resp BP Pulse Ox 36.4 C 90 17 125/74 H 96 03/16/18 08:00 03/16/18 08:00 03/16/18 08:00 03/16/18 08:00 03/16/18 08:00 Microbiology 03/06/18 11:45 Mycobacterial Smear (UZAIR) - Final Abdomen - Aspirate 03/11/18 13:30 Gram Stain - Final Abdomen - Other Laboratory Results 03/16/18 06:30 03/16/18 06:30 03/15/18 03/16/18 03/17/18 05:59 05:59 05:59 Intake Total 2040 2154 Output Total 1770 2515 Balance 270 -361 Ertapenem # 7 Fluconazole # 11 - Physical Exam General Appearance: alert, no apparent distress, non-toxic EENT: dry mucous membranes, No scleral icterus, No thrush Respiratory: lungs clear (Anterolaterally), No respiratory distress Cardiac/Chest: regular rate, rhythm Abdomen: tender (Mild in bilateral lower quadrants), other (Wound VAC in place without surrounding erythema; feculent appearing material draining via wound VAC with dark green material in JULISSA drain), No distended Skin: No rash - Line/s RUE PICC Lines: No drainage, No erythema ICD10 Worksheet Patient Problems: Problems Problem Status Onset Surgical wound infection Acute Bowel obstruction Acute
--- NOTE | 2018-03-16 13:14 | HOSPPROG ---
Hospitalist Progress Note Assessment/Plan: 82 yo F w h/o ovarian CA, recent surgery, admitted with intra-abdominal abscess treated with IV abx and no surgery. 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 Patient currently has a wound VAC in place and a JULISSA drain. Plan for washout today with Dr. Feliz and possible partial closure of her abdominal wound. #Intra-abdominal abscess s/p IR drain, small bowel fistula, complicated by Klebsiella sepsis. Status post exploratory lap on 03/11 and 03/13 with repair of dehiscence. Followed by Dr. Feliz and Dr. Gonsalez. * On ertapenem and fluconazole * Followed by infectious disease * Likely washout today by Dr. Feliz SVT: s/p 8 beat run of SVT, previously on metoprolol at home. Pt NPO, will restart at a lower dose, given soft BP * cont metoprolol 25mg bid (previously on 100 bid, titrate up as tolerated.) #Ovarian cancer s/p recent SBO with SB resection * oncology not seeing her as inpt #Acute respiratory failure * overall improved per vitals/reports #Protein Calorie Malnutrition * TPN, NPO #hypothyroid * IV replacement #hyperglycemia on TPN but with HgA1c of 5.8 * continue monitor and adjust tx as indicated with TPN #depression * stable #anemia, normocytic multifactorial with cancer, malnutrition, infection, mulitple surgeries ... * slight decrease in Hbg over the last 2 days * Consider transfusion if patient continues to be fatigued. * will recheck h/h in a.m. # DVT prophylaxis, Lovenox on hold due to worsening anemia and possible surgery tomorrow. Subjective: no cp or sob. fatigued. Will have surgery today Objective: Vital Signs Temp Pulse Resp BP Pulse Ox 36.4 C 95 18 137/61 H 94 03/16/18 12:00 03/16/18 12:00 03/16/18 12:00 03/16/18 12:00 03/16/18 12:00 Microbiology 03/11/18 13:30 Gram Stain - Final Abdomen - Other 03/06/18 11:45 Mycobacterial Smear (UZAIR) - Final Abdomen - Aspirate Laboratory Results 03/16/18 06:30 03/16/18 06:30 03/15/18 03/16/18 03/17/18 05:59 05:59 05:59 Intake Total 2039 2041 Output Total 5986 6488 Balance 270 -361 PT 16.3 SEC (12.0-15.0) H 03/11/18 08:55 INR 1.29 (0.83-1.16) H 03/11/18 08:55 - Physical Exam Constitutional: chronically ill appearing Eyes: PERRL Ears, Nose, Mouth, Throat: moist mucous membranes, hearing normal Cardiovascular: regular rate and rhythym, No edema Respiratory: no respiratory distress, no rales or rhonchi, reduced air movement Gastrointestinal: normoactive bowel sounds, soft, non-tender abdomen Skin: warm Neurologic: AAOx3 Psychiatric: interacting appropriately, not anxious, not encephalopathic Lymph, Heme, Immunologic: No petechiae ICD10 Worksheet Patient Problems: Problems Problem Status Onset Surgical wound infection Acute Bowel obstruction Acute
[2018-03-16] MEDS: ONDANSETRON 4 MG/2 ML VIAL IVP PRN (13:31)
--- NOTE | 2018-03-16 14:21 | PDANEPAE ---
ANE History of Present Illness 82 yo with ovarian ca, multiple SBO, abd wound vac ANE Past Medical History - Cardiovascular History Hx Hypertension: Yes Hx Arrhythmias: No Hx Chest Pain: No Hx Coronary Artery / Peripheral Vascular Disease: No Hx CHF / Valvular Disease: No Hx Palpitations: No - Pulmonary History Hx COPD: No Hx Asthma/Reactive Airway Disease: No Hx Recent Upper Respiratory Infection: No Hx Oxygen in Use at Home: Yes O2 in Use at Home (L/minute): 2 Hx Sleep Apnea: Yes Sleep Apnea Screening Result - Last Documented: Positive - Endocrine History Hx Diabetes: No Hypothyroid: No Hyperthyroid: No Obesity: yes, mild - Renal History Hx Renal Disorders: No - Liver History Hx Hepatic Disorders: No - Neurological & Psychiatric Hx Hx Neurological and Psychiatric Disorders: No - Cancer History Hx Cancer: Yes Cancer History Comment: ovarian ca - Congenital Disorder History Hx Congenital Disorders: No - GI History GERD: no Hx Gastrointestinal Disorders: Yes Gastrointestinal History Comment: small bowel fistula - Chronic Pain History Chronic Pain: No ANE Review of Systems Review of systems is: negative Review of Systems: - Exercise capacity METS (RN): 2 METS ANE Patient History - Allergies Allergies/Adverse Reactions: No Known Allergies Allergy (Verified 01/03/18 11:58) - Home Medications Home medications: home medication list seen and reviewed Home Medications: Aspirin [Aspirin 81mg (*)] 81 mg PO HS 05/03/16 [Last Taken Unknown] Simvastatin [Zocor] 40 mg PO HS 05/03/16 [Last Taken Unknown] Docusate Sodium [Colace 100 MG (*)] 100 mg PO DAILY 02/18/18 [Last Taken Unknown ] Levothyroxine [Synthroid 25 mcg (*)] 25 mcg PO DAILY06 #0 02/18/18 [Last Taken Unknown] Bupropion HBr [Aplenzin] 348 mg PO DAILY 02/20/18 [Last Taken Unknown] Metoprolol Tartrate [Lopressor 100 mg (*)] 100 mg PO BID 02/20/18 [Last Taken Unknown] Multivitamins [Multivitamin (*)] 1 tab PO DAILY 02/20/18 [Last Taken Unknown] Sertraline HCl [Zoloft 100mg (*)] 100 mg PO DAILY 02/20/18 [Last Taken Unknown] Acetaminophen [Tylenol 325mg (*)] 650 mg PO Q4 PRN 03/05/18 [Last Taken Unknown] Herbals/Supplements -Info Only 1 ea PO DAILY 03/05/18 [Last Taken Unknown] Melatonin [Melatonin 3 MG (*)] 3 mg PO HS 03/05/18 [Last Taken Unknown] Sulfamethox/Tmp 800/160 mg [Bactrim Ds] 1 tab PO BID 03/05/18 [Last Taken Unknown] traMADol [Ultram 50 mg (*)] 50 mg PO Q4 PRN 03/05/18 [Last Taken Unknown] - NPO status NPO Status: no food or drink >8 hours NPO Since - Liquids (Date): 03/13/18 NPO Since - Liquids (Time): 09:00 NPO Since - Solids (Date): 03/12/18 NPO Since - Solids (Time): 21:45 - Anes Hx Anes Hx: no prior problems - Smoking Hx Smoking Status: Never smoked Marijuana use: No - Alcohol Use Alcohol Use: None - Family Anes Hx Family Anes Hx: none ANE Labs/Vital Signs - Labs Result Diagrams: 03/16/18 06:30 03/16/18 06:30 - Vital Signs Blood Pressure: 137/61 Heart Rate: 95 Respiratory Rate: 18 O2 Sat (%): 94 Height: 162.56 cm Weight: 76.5 kg ANE Physical Exam - Airway Neck exam: FROM Mallampati Score: Class 2 Mouth exam: normal dental/mouth exam - Pulmonary Pulmonary: no respiratory distress, clear to auscultation - Cardiovascular Cardiovascular: regular rate and rhythym, no murmur, rub, or gallop - ASA Status ASA Status: IV ANE Anesthesia Plan Anesthesia Plan: general endotracheal anesthesia
[2018-03-16] MEDS ORDERED: LR 1,000 ML IV ONE (14:26)
[2018-03-16] MEDS ORDERED: PROPOFOL 200 MG/20 ML VIAL ONE (14:28)
[2018-03-16] MEDS ORDERED: fentaNYL 100 MCG/2 ML INJ ONE (14:28)
[2018-03-16] MEDS ORDERED: ROCURONIUM 50 MG/5 ML VIAL ONE (14:32)
[2018-03-16] MEDS ORDERED: fentaNYL 100 MCG/2 ML INJ IVP PRN (15:09)
[2018-03-16] MEDS ORDERED: NALOXONE HCL 0.4 MG/ML INJ IVP PRN (15:09)
[2018-03-16] MEDS ORDERED: PROMETHAZINE HCL 25 MG/ML INJ IVP PRN (15:09)
--- NOTE | 2018-03-16 15:10 | POSTANESTH ---
Post Anesthetic Evaluation Cardiovascular Status: Normal, Stable Respiratory Status: Normal, Stable Level of Consciousness/Mental Status: Can Participate in Eval, Moderately Sleepy Pain Control: Adequate, Prn Tx Ordered Nausea/Vomiting Control: Adequate, Prn Tx Ordered Complications Possibly Related to Anesthesia: None Noted
[2018-03-16] MEDS ORDERED: SUGAMMADEX SODIUM 200 MG/2 ML VIAL IVP ONE (15:41)
[2018-03-16] MEDS ORDERED: ONDANSETRON 4 MG/2 ML VIAL ONE (15:41)
[2018-03-16] MEDS: TPN W/ FAMOTIDINE 1 EA BAG IV SCH (21:03)
[2018-03-16] MEDS: MELATONIN 3 MG TAB PO SCH (21:03)
[2018-03-16] MEDS: FLUCONAZOLE/NaCl 100 ML IV SCH (21:21)
[2018-03-17] MEDS: METOPROLOL TARTRATE 5 MG/5 ML INJ IVP SCH ×4 (00:30→17:46)
[2018-03-17] MEDS: INSULIN REGULAR HUMAN 100 UNIT/ML UNIT SC SCH ×4 (00:31→18:34)
[2018-03-17 06:52] LABS: PLATELET COUNT 287 10^3/uL (150-400)
[2018-03-17] MEDS: ONDANSETRON 4 MG/2 ML VIAL IVP PRN ×2 (07:02→22:08)
[2018-03-17] MEDS: DOCUSATE SODIUM 100 MG CAP PO SCH (07:49)
[2018-03-17] MEDS: ERTAPENEM 1 GM in NS 100 ML IV SCH (08:07)
--- NOTE | 2018-03-17 08:59 | HOSPPROG ---
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 # hypothyroid - synthroid IV # depr - holding outpatient meds - currently stable # multifactorial anemia - follow daily for now, may need transfusion # dvt ppx - will d/w gen surgery restarting soon # goals of care - patient quite understanding of her condition; currently wants to proceed with treatment with curative intent Subjective: patient reports some pain in her abd; we discussed her overall condition and prognosis at length; i offered her a palliative care consult, as well as a [facility] consult and she declined; she is quite reasonable about her current condition Objective: Vital Signs Temp Pulse Resp BP Pulse Ox 37.4 C 91 20 137/54 H 96 03/17/18 08:00 03/17/18 08:00 03/17/18 08:00 03/17/18 08:00 03/17/18 08:00 Microbiology 03/11/18 13:30 Gram Stain - Final Abdomen - Other Laboratory Results 03/17/18 06:40 03/17/18 06:40 03/16/18 03/17/18 03/18/18 05:59 05:59 05:59 Intake Total 2154 2371 Output Total 9932 1944 275 Balance -361 -124 -275 PT 16.3 SEC (12.0-15.0) H 03/11/18 08:55 INR 1.29 (0.83-1.16) H 03/11/18 08:[address] abd's reviewed - Physical Exam Constitutional: uncomfortable Cardiovascular: regular rate and rhythym, no murmur, rub, or gallop Respiratory: no respiratory distress, no rales or rhonchi, clear to auscultation Gastrointestinal: other (wound vac, 2 JULISSA drains; very TTP diffusely) ICD10 Worksheet Patient Problems: Problems Problem Status Onset Bowel obstruction Acute Surgical wound infection Acute
--- NOTE | 2018-03-17 09:31 | SOAPPROG ---
SOAP Progress Note Assessment/Plan: Assessment: 82 y/o F with hx of ovarian cancer, s/p recent open small bowel resection, partial omentectomy, and JUAN JOSE last hospitalization. Now admitted with retroperitoneal abscess c communicating wound infection, s/p drainage, now s/p exlaparotomy c washout and exploration, POD#6, exlaparotomy c washout and oversewing of anastomosis, POD#4., washout and oversewing of enterotomy POD #1 S: Biggest complaint is feeling weak. Passing gas. Amenable to having additional surgery for washout and possible fascial closure. O: Alert Temp 37.1 VSS RRR No increased WOB Abdomen: soft, nontender, abthera wound vac in place with dark red/brown drainage. JULISSA drains with serosanguinous drainage, hypoactive bowel sounds. Plan: Continue to monitor. Daughters have said that pt does not want any further surgery, however we discussed possible surgery tomorrow for additional washout and possible fascial closure. Pt is amenable to this. Continue TPN, jimenez, and iv abx. Appreciate medicine and ID input. Ok to restart PO meds. Ok to have lovenox today. 03/17/18 09:25 Objective: Vital Signs Temp Pulse Resp BP Pulse Ox 37.4 C 91 20 137/54 H 96 03/17/18 08:00 03/17/18 08:00 03/17/18 08:00 03/17/18 08:00 03/17/18 08:00 Microbiology 03/11/18 13:30 Gram Stain - Final Abdomen - Other Laboratory Results 03/17/18 06:40 03/17/18 06:40 03/16/18 03/17/18 03/18/18 05:59 05:59 05:59 Intake Total 2154 2371 Output Total 7415 3089 275 Balance -361 -124 -275 PT 16.3 SEC (12.0-15.0) H 03/11/18 08:55 INR 1.29 (0.83-1.16) H 03/11/18 08:55 ICD10 Worksheet Patient Problems: Problems Problem Status Onset Surgical wound infection Acute Bowel obstruction Acute
[2018-03-17] MEDS: HYDROmorphONE/DILAUDID 1 MG/ML INJ IVP PRN ×2 (09:40→22:09)
[2018-03-17] MEDS: LEVOTHYROXINE IVP SCH (09:56)
[2018-03-17] MEDS ORDERED: HYDROmorphONE/DILAUDID 1 MG/ML INJ IVP ONE (11:15)
--- NOTE | 2018-03-17 12:04 | PCMIDPN ---
Assessment/Plan: # Klebsiella bacteremia from polymicrobial pelvic abscess/peritonitis, drains and wound vac with bilious material. Source control has not yet been achieved, unclear if source control feasible --continue ertapenem and empiric fluconazole --patient is NPO so continue IV fluconazole --contact precautions for ESBL meds Ertapenem 1 g IV daily, #8 fluconazole 200mg IV daily #12 TPN Microbiology 03/05/18 18:15 Blood Cx 1/2: Klebsiella Oxytoca and staph hominis 03/06/18 11:45 Abdomen aspirate: Klebsiella Oxytoca, E coli 03/06/18 01:15 Abdomen wound: Klebsiella Oxytoca & Streptococcus, E coli, Klebs pneumoniae ESBL Subjective: Patient contemplating whether not to proceed with additional surgeries significantly more abdominal pain today 2 daughters at bedside Objective: Vital Signs Temp Pulse Resp BP Pulse Ox 37.4 C 91 20 137/54 H 96 03/17/18 08:00 03/17/18 08:00 03/17/18 08:00 03/17/18 08:00 03/17/18 08:00 Microbiology 03/11/18 13:30 Gram Stain - Final Abdomen - Other Laboratory Results 03/17/18 06:40 03/17/18 06:40 03/16/18 03/17/18 03/18/18 05:59 05:59 05:59 Intake Total 2154 2371 Output Total 2515 4575 275 Balance -361 -124 -275 Gen: chr ill appearance, very pleasant but in obvious pain HEENT Dry MM Neck Supple CV: RRR Chest: decreased bs B bases Abd: midline wound vac in place w brown material in line, 2 JULISSA drains w bilious fluid, no bowel sounds, LLQ pain to minimal palpation : jimenez LUE PICC c/d/i No rash, pallor - Time Spent With Patient Time Spent with Patient: greater than 35 minutes Time Spent with Patient: Greater than 35 minutes spent on this patients care, greater than 50% of time spent counseling, educating, and coordinating care regarding the above mentioned plan. ICD10 Worksheet Patient Problems: Problems Problem Status Onset Surgical wound infection Acute Bowel obstruction Acute
--- NOTE | 2018-03-17 16:16 | PDINTPN ---
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 Attempt for percutaneous drainage was unsuccessful and she has required multiple surgeries for washouts. An abdominal wound vac has been in place as well as JULISSA drains. She has tolerated these well but complains of ongoing issues of fatigue. * Peritonitis with abscess and possible fistula- I believe she has had her wounds oversewn at one point and no obvious leak has been identified. Plans are for return to OR 03/18 for, hopefully, final closure. She reports getting weary of ongoing surgical interventions. Currently on TPN * Hypoxemia-atelectasis- her O2 requirement is minimal and I encouraged her to pursue IS as much as tolerated. Subjective: no events. wound vac remains Objective: Vital Signs Temp Pulse Resp BP Pulse Ox 37.4 C 91 17 135/63 H 98 03/17/18 08:00 03/17/18 12:22 03/17/18 12:00 03/17/18 12:22 03/17/18 12:00 Microbiology 03/11/18 13:30 Gram Stain - Final Abdomen - Other Laboratory Results 03/17/18 06:40 03/17/18 06:40 03/16/18 03/17/18 03/18/18 05:59 05:59 05:59 Intake Total 2154 2371 Output Total 2515 7135 275 Balance -361 -124 -275 PT 16.3 SEC (12.0-15.0) H 03/11/18 08:55 INR 1.29 (0.83-1.16) H 03/11/18 08:55 Physical Exam - Physical Exam General Appearance: WD/WN, alert, no apparent distress EENT: PERRL/EOMI, No scleral icterus (R), No scleral icterus (L) Neck: supple Respiratory: lungs clear, normal breath sounds, decreased breath sounds, No respiratory distress, No accessory muscle use Cardiac/Chest: regular rate, rhythm, No edema Abdomen: soft, guarding, No distended, No rebound Skin: normal color, warm/dry, No cyanosis Lymphatic: no adenopathy Extremities: No pedal edema Neuro/Psych: alert, normal mood/affect, oriented x 3 ICD10 Worksheet Patient Problems: Problems Problem Status Onset Surgical wound infection Acute Bowel obstruction Acute
--- NOTE | 2018-03-17 16:29 | ASMTCMCOM ---
CM Note CM Note Notes: A family meeting with patient's daughters, Tristin, Corncob Pipe Supervisor, Pallavi Mcgowan and Motor Brakeman, Magda was held today regarding plan of care and treatment options for the patient. Both daughters confirmed their mother does not want to do any more surgery. Dr. Grier did meet with them today and indicated patient's prognosis with no surgical repair and washout only does not have a good prognosis. Palliative care and hospice options were discussed.Francy and Angelica stated they had used hospice for their father and they were familiar with hospice services as was their mother. Francy zazueta Elisa has expressed interest in " with dignity" and Pallavi reviewed several of the steps involved in pursuing this route. It was decided to schedule a meeting with the physician in attendance tomorrow to get the patient's prognosis and timelines for what the prognosis is so planning can be done for the patient. The direction of care at this time is minimal medical intervention. The family is clear the patient does not want to prolong life if she remains gravely ill and has no quality of life. Pallavi will get the meeting time secured and communicate to the daughters. CM will follow. Date Signed: 03/17/2018 04:29 PM Electronically Signed By:Magda Bartlett LCSW
[2018-03-17] MEDS: TPN W/ FAMOTIDINE 1 EA BAG IV SCH (20:44)
[2018-03-17] MEDS: FLUCONAZOLE/NaCl 100 ML IV SCH (20:45)
[2018-03-18] MEDS: METOPROLOL TARTRATE 5 MG/5 ML INJ IVP SCH ×4 (00:25→18:40)
[2018-03-18] MEDS: INSULIN REGULAR HUMAN 100 UNIT/ML UNIT SC SCH ×4 (00:28→18:42)
[2018-03-18 06:03] LABS: PLATELET COUNT 268 10^3/uL (150-400)
[2018-03-18] MEDS: HYDROmorphONE/DILAUDID 1 MG/ML INJ IVP PRN ×3 (07:16→20:19)
--- NOTE | 2018-03-18 10:20 | PCMIDPN ---
Assessment/Plan: # Klebsiella bacteremia from polymicrobial pelvic abscess/peritonitis, drains and wound vac with bilious material. 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 --continue ertapenem and empiric fluconazole --patient is NPO so continue IV fluconazole --contact precautions for ESBL --had discussion regarding pros/cons of palliative/hospice after patient and family prompting --patient desires to return to OR for additional washout meds Ertapenem 1 g IV daily, #9 fluconazole 200mg IV daily #13 TPN Microbiology 03/05/18 18:15 Blood Cx 1/2: Klebsiella Oxytoca and staph hominis 03/06/18 11:45 Abdomen aspirate: Klebsiella Oxytoca, E coli 03/06/18 01:15 Abdomen wound: Klebsiella Oxytoca & Streptococcus, E coli, Klebs pneumoniae ESBL Subjective: abdominal pain less today no other events overnight 2 daughters at bedside Objective: Vital Signs Temp Pulse Resp BP Pulse Ox 36.6 C 87 17 136/62 H 93 03/18/18 07:22 03/18/18 07:22 03/18/18 07:22 03/18/18 07:22 03/18/18 07:22 Microbiology 03/11/18 13:30 Gram Stain - Final Abdomen - Other Laboratory Results 03/18/18 05:35 03/18/18 05:35 03/17/18 03/18/18 03/19/18 05:59 05:59 05:59 Intake Total 2371 1845 Output Total 2495 2427 Balance -124 -582 Gen: chr ill appearance, very pleasant HEENT Dry MM Neck Supple CV: RRR Chest: decreased bs B bases Abd: midline wound vac in place w brown material in line, 1 of 2 JULISSA drains w material c/w bowel content - other w serous fluid, no bowel sounds, no peritoneal signs : jimenez LUE PICC c/d/i No rash, pallor - Time Spent With Patient Time Spent with Patient: greater than 35 minutes (care reveiwed w surgery team, nursing and palliative care team) Time Spent with Patient: Greater than 35 minutes spent on this patients care, greater than 50% of time spent counseling, educating, and coordinating care regarding the above mentioned plan. ICD10 Worksheet Patient Problems: Problems Problem Status Onset Surgical wound infection Acute Bowel obstruction Acute
[2018-03-18] MEDS: ERTAPENEM 1 GM in NS 100 ML IV SCH (10:36)
[2018-03-18] MEDS ORDERED: LORazepam 2 MG/ML INJ IVP PRN (10:37)
[2018-03-18] MEDS: LEVOTHYROXINE IVP SCH (11:32)
--- NOTE | 2018-03-18 12:51 | PDINTPN ---
Product Development Assistant Progress Note Assessment/Plan: 82F s/p hernia repair complicated by abscess and/or fistula and peritonitis. Attempt for percutaneous drainage was unsuccessful and she has required multiple surgeries for washouts. An abdominal wound vac has been in place as well as JULISSA drains. She has tolerated these well but complains of ongoing issues of fatigue. * Peritonitis with abscess and possible fistula with Klebsiella bacteremia- clinically stable but not wanting major surgical procedures. Going back to OR hopefully for at least partial closure. ID following. Remains NPO on TPN. Agree with palliative care * Hypoxemia-atelectasis- her O2 requirement is minimal and I encouraged her to pursue IS as much as tolerated. 03/18/18 12:48 03/18/18 12:50 Subjective: no events Objective: Vital Signs Temp Pulse Resp BP Pulse Ox 36.9 C 94 19 112/46 L 94 03/18/18 12:00 03/18/18 12:00 03/18/18 12:00 03/18/18 12:00 03/18/18 12:00 Microbiology 03/11/18 13:30 Gram Stain - Final Abdomen - Other Anaerobic Culture - Final Laboratory Results 03/18/18 05:35 03/18/18 05:35 03/17/18 03/18/18 03/19/18 05:59 05:59 05:59 Intake Total 2371 1845 Output Total 2495 2427 Balance -124 -582 PT 16.3 SEC (12.0-15.0) H 03/11/18 08:55 INR 1.29 (0.83-1.16) H 03/11/18 08:55 Physical Exam - Physical Exam General Appearance: alert, no apparent distress EENT: PERRL/EOMI, No scleral icterus (R) Neck: supple Respiratory: lungs clear, normal breath sounds, No respiratory distress, No accessory muscle use Cardiac/Chest: regular rate, rhythm, No edema Abdomen: non-tender, soft, other (wound vac), No distended Skin: normal color, warm/dry, No cyanosis Lymphatic: no adenopathy Extremities: No pedal edema Neuro/Psych: alert, normal mood/affect, oriented x 3 ICD10 Worksheet Patient Problems: Problems Problem Status Onset Surgical wound infection Acute Bowel obstruction Acute
[2018-03-18] MEDS ORDERED: LR 1,000 ML IV ONE (14:47)
--- NOTE | 2018-03-18 14:59 | SOAPPROG ---
AJITH Progress Note Assessment/Plan: Assessment: 82 y/o F with hx of ovarian cancer, s/p recent open small bowel resection, partial omentectomy, and JUAN JOSE last hospitalization. Now admitted with retroperitoneal abscess c communicating wound infection, s/p drainage, now s/p exlaparotomy c washout and exploration, exlaparotomy c washout and oversewing of anastomosis, washout and oversewing of enterotomy S: Still feeling weak. Abdominal pain less. Wishes to proceed with surgery today for washout and possible partial fascial closure O: Alert Afebrile VSS RRR No increased WOB Abdomen: soft, nontender, abthera wound vac in place with dark red/brown drainage. JULISSA drains with dark bilious drainage, hypoactive bowel sounds. Plan: Had long discussion with pt and family. There is a chance that she will recover from this situation. She wishes to return to OR today for washout. Would like to take it one step at a time. Plan for washout, exploration, possible fascial closure today. Hopefully over time, fistula will heal itself with wound vac and adequate drainage. 03/18/18 14:54 Objective: Vital Signs Temp Pulse Resp BP Pulse Ox 37.1 C 103 H 24 H 122/70 H 93 03/18/18 12:00 03/18/18 12:00 03/18/18 12:00 03/18/18 12:00 03/18/18 12:00 Microbiology 03/11/18 13:30 Gram Stain - Final Abdomen - Other Anaerobic Culture - Final Laboratory Results 03/18/18 05:35 03/18/18 05:35 03/17/18 03/18/18 03/19/18 05:59 05:59 05:59 Intake Total 2371 1845 Output Total 6648 0151 Balance -124 -582 PT 16.3 SEC (12.0-15.0) H 03/11/18 08:55 INR 1.29 (0.83-1.16) H 03/11/18 08:55 ICD10 Worksheet Patient Problems: Problems Problem Status Onset Surgical wound infection Acute Bowel obstruction Acute
--- NOTE | 2018-03-18 15:05 | PDANEPAE ---
ANE Past Medical History - Cardiovascular History Hx Hypertension: Yes Hx Arrhythmias: No Hx Chest Pain: No Hx Coronary Artery / Peripheral Vascular Disease: No Hx CHF / Valvular Disease: No Hx Palpitations: No - Pulmonary History Hx COPD: No Hx Asthma/Reactive Airway Disease: No Hx Recent Upper Respiratory Infection: No Hx Oxygen in Use at Home: Yes O2 in Use at Home (L/minute): 2 Hx Sleep Apnea: Yes Sleep Apnea Screening Result - Last Documented: Positive - Endocrine History Hx Diabetes: No Hypothyroid: No Hyperthyroid: No Obesity: yes, mild - Renal History Hx Renal Disorders: No - Liver History Hx Hepatic Disorders: No - Neurological & Psychiatric Hx Hx Neurological and Psychiatric Disorders: No - Cancer History Hx Cancer: Yes Cancer History Comment: ovarian ca - Congenital Disorder History Hx Congenital Disorders: No - GI History GERD: no Hx Gastrointestinal Disorders: Yes Gastrointestinal History Comment: small bowel fistula - Chronic Pain History Chronic Pain: No ANE Review of Systems Review of Systems: - Exercise capacity METS (RN): 2 METS ANE Patient History - Allergies Allergies/Adverse Reactions: No Known Allergies Allergy (Verified 01/03/18 11:58) - Home Medications Home Medications: Aspirin [Aspirin 81mg (*)] 81 mg PO HS 05/03/16 [Last Taken Unknown] Simvastatin [Zocor] 40 mg PO HS 05/03/16 [Last Taken Unknown] Docusate Sodium [Colace 100 MG (*)] 100 mg PO DAILY 02/18/18 [Last Taken Unknown ] Levothyroxine [Synthroid 25 mcg (*)] 25 mcg PO DAILY06 #0 02/18/18 [Last Taken Unknown] Bupropion HBr [Aplenzin] 348 mg PO DAILY 02/20/18 [Last Taken Unknown] Metoprolol Tartrate [Lopressor 100 mg (*)] 100 mg PO BID 02/20/18 [Last Taken Unknown] Multivitamins [Multivitamin (*)] 1 tab PO DAILY 02/20/18 [Last Taken Unknown] Sertraline HCl [Zoloft 100mg (*)] 100 mg PO DAILY 02/20/18 [Last Taken Unknown] Acetaminophen [Tylenol 325mg (*)] 650 mg PO Q4 PRN 03/05/18 [Last Taken Unknown] Herbals/Supplements -Info Only 1 ea PO DAILY 03/05/18 [Last Taken Unknown] Melatonin [Melatonin 3 MG (*)] 3 mg PO HS 03/05/18 [Last Taken Unknown] Sulfamethox/Tmp 800/160 mg [Bactrim Ds] 1 tab PO BID 03/05/18 [Last Taken Unknown] traMADol [Ultram 50 mg (*)] 50 mg PO Q4 PRN 03/05/18 [Last Taken Unknown] - NPO status NPO Since - Liquids (Date): 03/05/18 NPO Since - Liquids (Time): 11:00 NPO Since - Solids (Date): 03/05/18 NPO Since - Solids (Time): 11:00 - Smoking Hx Smoking Status: Never smoked - Alcohol Use Alcohol Use: None ANE Labs/Vital Signs - Labs Result Diagrams: 03/18/18 05:35 03/18/18 05:35 - Vital Signs Blood Pressure: 122/70 Heart Rate: 103 Respiratory Rate: 24 O2 Sat (%): 93 Height: 162.56 cm Weight: 83.1 kg ANE Physical Exam - Airway Mallampati Score: Unable to assesss - ASA Status ASA Status: IV ANE Anesthesia Plan Anesthesia Plan: general endotracheal anesthesia
[2018-03-18] MEDS ORDERED: PROPOFOL 200 MG/20 ML VIAL ONE (15:12)
[2018-03-18] MEDS ORDERED: fentaNYL 100 MCG/2 ML INJ ONE (15:15)
[2018-03-18] MEDS ORDERED: ROCURONIUM 50 MG/5 ML VIAL ONE (15:17)
[2018-03-18] MEDS ORDERED: BUPIVACAINE 0.5% 30 ML SDV ONE (15:26)
--- NOTE | 2018-03-18 15:57 | ASMTCMCOM ---
CM Note CM Note Notes: Dr. Grier met with the patient, her daughters and Pallavi and CM were in attendance. Dr. Grier reviewed the patient's current medical circumstances and the options going forward. The patient would like to take things a day at a time right now. Elisa is clear she does not want more surgery. She will go for a washout this afternoon. Dr. Feliz and his PA also reviewed options with the patient and her daughters. The plan of care currently is to get a washout and heal from the procedure and then possibly pursue trying to heal over the parts counterman with the option to choose comfort measures at any time. D/C needs are still TBD. CM will follow. Date Signed: 03/18/2018 03:56 PM Electronically Signed By:Magda Bartlett LCSW
[2018-03-18] MEDS ORDERED: ONDANSETRON 4 MG/2 ML VIAL IVP PRN (16:55)
[2018-03-18] MEDS ORDERED: NALOXONE HCL 0.4 MG/ML INJ IVP PRN (16:55)
[2018-03-18] MEDS ORDERED: fentaNYL 100 MCG/2 ML INJ IVP PRN (16:55)
[2018-03-18] MEDS ORDERED: LR 500 ML IV PRN (16:55)
--- NOTE | 2018-03-18 16:56 | POSTANESTH ---
Post Anesthetic Evaluation Cardiovascular Status: Similar to Pre-Op Cond Respiratory Status: Similar to Pre-op Cond. Level of Consciousness/Mental Status: Can Participate in Eval Pain Control: Adequate, Prn Tx Ordered Nausea/Vomiting Control: Adequate, Prn Tx Ordered Complications Possibly Related to Anesthesia: None Noted
--- NOTE | 2018-03-18 17:42 | POSTOPPROG ---
Post Op Note Date of Operation: 03/18/18 Surgeon: Felix Feliz Hris Coordinator: Salazar Anesthesiologist: Ricarda Anesthesia: GET(General Endotracheal) Pre-op Diagnosis: Abdominal abscess, bowel leak Post-op Diagnosis: Same Indication: same Procedure: Abdominal washout, enterotomy repairs x2, partial fascial closure, wound va Findings: Inf/Abcess present in the surg proc area at time of surgery?: Yes Depth: Organ Space EBL: Minimal (Two enterotomies, likely not source of leak. Fistula likely down farther and inaccessible. No active leak at time of surgery.) Drains: Tirso Alan, Wound Vac
--- NOTE | 2018-03-18 18:42 | HOSPPROG ---
Hospitalist Progress Note Assessment/Plan: # intra-abdominal abscess s/p I&D, recent SBO s/o small bowel resection and JUAN JOSE - had abd washout today plus additional repairs. 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 I will transfuse one unit. Earlier in this hospitalization, she had volume overload which required diuresis. This will need to be monitored closely # dvt ppx - per surgery # goals of care - patient quite understanding of her condition; does not want extensive surgery but not ready for palliative care or hospice care which was again offered this evening. Subjective: had surgery. pain is well controlled. feels fatigued Objective: Vital Signs Temp Pulse Resp BP Pulse Ox 37.2 C 95 18 119/82 H 97 03/18/18 18:13 03/18/18 18:13 03/18/18 18:13 03/18/18 18:13 03/18/18 18:13 Microbiology 03/11/18 13:30 Gram Stain - Final Abdomen - Other Anaerobic Culture - Final Laboratory Results 03/18/18 05:35 03/18/18 05:35 03/17/18 03/18/18 03/19/18 05:59 05:59 05:59 Intake Total 2371 1845 1134 Output Total 3146 3725 2110 Balance -124 -582 -976 PT 16.3 SEC (12.0-15.0) H 03/11/18 08:55 INR 1.29 (0.83-1.16) H 03/11/18 08:55 - Physical Exam Constitutional: chronically ill appearing Eyes: PERRL Ears, Nose, Mouth, Throat: moist mucous membranes, hearing normal Cardiovascular: regular rate and rhythym, No edema Respiratory: reduced air movement Skin: warm Neurologic: AAOx3 Psychiatric: interacting appropriately, not anxious, not encephalopathic Lymph, Heme, Immunologic: No petechiae ICD10 Worksheet Patient Problems: Problems Problem Status Onset Surgical wound infection Acute Bowel obstruction Acute
[2018-03-18] MEDS: TPN W/ FAMOTIDINE 1 EA BAG IV SCH (20:53)
[2018-03-18] MEDS: FLUCONAZOLE/NaCl 100 ML IV SCH (21:35)
[2018-03-19] MEDS: METOPROLOL TARTRATE 5 MG/5 ML INJ IVP SCH ×3 (00:25→16:08)
[2018-03-19] MEDS: INSULIN REGULAR HUMAN 100 UNIT/ML UNIT SC SCH ×3 (00:25→12:20)
[2018-03-19] MEDS ORDERED: ACETAMINOPHEN 650 MG SUPP PR PRN (00:25)
[2018-03-19 05:18] LABS: PLATELET COUNT 275 10^3/uL (150-400)
[2018-03-19] MEDS: NS 1,000 ML IV SCH (06:07)
[2018-03-19] MEDS: HYDROmorphONE/DILAUDID 1 MG/ML INJ IVP PRN (09:51)
[2018-03-19] MEDS: LEVOTHYROXINE IVP SCH (09:54)
[2018-03-19] MEDS: ERTAPENEM 1 GM in NS 100 ML IV SCH (09:54)
[2018-03-19] MEDS: ONDANSETRON 4 MG/2 ML VIAL IVP PRN (10:53)
--- NOTE | 2018-03-19 11:23 | SOAPPROG ---
AJITH Progress Note Assessment/Plan: Assessment: 82yo F c Hx of ovarian Ca s/p small bowel resection, omentectomy, JUAN JOSE now c entero-atmospheric fistula(s) - Had a fever overnight, has resolved this AM - abdomen is soft, appropriately tender. Fascia partially closed at yesterdays washout. fistula still not visualized - both JPs and VAC all have fecalized material in them - Patient has been discussing goals of care with family, she relayed to me this AM that she no longer wants any more surgical interventions and wants to discuss her options with hospice/palliative care. She understands the consequences of this and I believe has the capacity to make this decision - palliative/hospice consults - will relay her decision to Dr Feliz Plan: 03/19/18 11:18 03/19/18 11:19 Subjective: pain controlled Objective: Vital Signs Temp Pulse Resp BP Pulse Ox 36.6 C 96 16 127/62 H 96 03/19/18 07:39 03/19/18 07:39 03/19/18 07:39 03/19/18 07:39 03/19/18 07:39 Microbiology 03/11/18 13:30 Gram Stain - Final Abdomen - Other Anaerobic Culture - Final Laboratory Results 03/19/18 05:09 03/19/18 05:09 03/18/18 03/19/18 03/20/18 05:59 05:59 05:59 Intake Total 1845 2087 Output Total 2427 3495 Balance -582 -1408 PT 16.3 SEC (12.0-15.0) H 03/11/18 08:55 INR 1.29 (0.83-1.16) H 03/11/18 08:55 ICD10 Worksheet Patient Problems: Problems Problem Status Onset Surgical wound infection Acute Bowel obstruction Acute
--- NOTE | 2018-03-19 11:26 | PCMIDPN ---
Assessment/Plan: # Klebsiella bacteremia from polymicrobial pelvic abscess/peritonitis, drains and wound vac with bilious material. 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 patient requesting hospice today --dc abx --dc tpn --likely wants JULISSA drains dc'd and if so likely rapid decline in the realm of days, query regarding staying in hospital for hospice, will discuss w hospitalist --long discussion w family, care discussed w medical case worker as well meds Ertapenem 1 g IV daily, #10 fluconazole 200mg IV daily #14 TPN Microbiology 03/05/18 18:15 Blood Cx 1/2: Klebsiella Oxytoca and staph hominis 03/06/18 11:45 Abdomen aspirate: Klebsiella Oxytoca, E coli 03/06/18 01:15 Abdomen wound: Klebsiella Oxytoca & Streptococcus, E coli, Klebs pneumoniae ESBL Subjective: patient to OR last night and fascia partial closed patient very sleep this AM c/o nausea Objective: Vital Signs Temp Pulse Resp BP Pulse Ox 36.6 C 96 16 127/62 H 96 03/19/18 07:39 03/19/18 07:39 03/19/18 07:39 03/19/18 07:39 03/19/18 07:39 Microbiology 03/11/18 13:30 Gram Stain - Final Abdomen - Other Anaerobic Culture - Final Laboratory Results 03/19/18 05:09 03/19/18 05:09 03/18/18 03/19/18 03/20/18 05:59 05:59 05:59 Intake Total 1845 2087 Output Total 2427 3495 Balance -582 -1408 Gen: chr ill appearing, mild distress secondary to nausea RUE PICC JLUISSA drain with brown material Resp: breathing easy Skin Pallor no rash - Time Spent With Patient Time Spent with Patient: greater than 35 minutes (reviewed hospice care w family ) Time Spent with Patient: Greater than 35 minutes spent on this patients care, greater than 50% of time spent counseling, educating, and coordinating care regarding the above mentioned plan. ICD10 Worksheet Patient Problems: Problems Problem Status Onset Surgical wound infection Acute Bowel obstruction Acute
--- NOTE | 2018-03-19 12:19 | PDINTPN ---
Sales Ledger Clerk Progress Note Assessment/Plan: 82F s/p hernia repair complicated by abscess and/or fistula and peritonitis. Attempt for percutaneous drainage was unsuccessful and she has required multiple surgeries for washouts. An abdominal wound vac has been in place as well as JULISSA drains. She has tolerated these well but complains of ongoing issues of fatigue. * Peritonitis with abscess and possible fistula with Klebsiella bacteremia- requesting comfort care only, which is reasonable. Hospice consult placed to determine location, eg hospital, home, other inpatient facility * Hypoxemia-atelectasis- her O2 requirement is minimal and I encouraged her to pursue IS as much as tolerated. 03/18/18 12:48 03/18/18 12:50 03/19/18 12:18 Subjective: requesting comfort care Objective: Vital Signs Temp Pulse Resp BP Pulse Ox 36.6 C 100 15 120/54 L 94 03/19/18 11:33 03/19/18 11:33 03/19/18 11:33 03/19/18 11:33 03/19/18 11:33 Microbiology 03/11/18 13:30 Gram Stain - Final Abdomen - Other Anaerobic Culture - Final Laboratory Results 03/19/18 05:09 03/19/18 05:09 03/18/18 03/19/18 03/20/18 05:59 05:59 05:59 Intake Total 1845 2087 Output Total 2427 3495 Balance -582 -1408 PT 16.3 SEC (12.0-15.0) H 03/11/18 08:55 INR 1.29 (0.83-1.16) H 03/11/18 08:55 Physical Exam - Physical Exam General Appearance: alert EENT: PERRL/EOMI Respiratory: lungs clear Cardiac/Chest: regular rate, rhythm Abdomen: other (wound vac) Skin: normal color Lymphatic: no adenopathy Neuro/Psych: alert, oriented x 3 ICD10 Worksheet Patient Problems: Problems Problem Status Onset Surgical wound infection Acute Bowel obstruction Acute
--- NOTE | 2018-03-19 15:56 | HOSPPROG ---
Hospitalist Progress Note Assessment/Plan: DIAGNOSES: #Intra-abdominal abscess s/p IR drain, small bowel fistula #Klebsiella sepsis - #Ovarian cancer s/p recent SBO with SB resection #Acute respiratory failure #Protein Calorie Malnutrition #hyperglycemia on TPN but with HgA1c of 5.8 #depression -stable #anemia, normocytic multifactorial with cancer, malnutrition, infection, mulitple surgeries ... At this point the patient has developed recurrent high fevers after her most recent surgery. She is becoming very tired and very unhappy with her lack of progress. At this point she has lost the desire to continue aggressive medical care in what she feels is really a losing barnett. She had extensive palliative discussions with her family and staff here today and at this time she and her family have requested that we discontinue antibiotics, discontinue other supportive care that might extend her life, remove her abdominal drains, and change to a palliative care approach to managing her situation. They have requested hospice involvement. I reviewed all this in detail with the patient and her family at the bedside today and reviewed this with Dr. Zhanna Grier as well PLANS: * Orders have been written to change to comfort care measures only * The [facility] hospice organization has been contacted to become involved in her care at this time * Per the patient's request we are removing all of her abdominal drains at this time. Is anticipated that she may develop some more significant peritonitis and may have development of significant pain related to that. Will continue monitoring for in the hospital here for the time being so that if she does develop acute peritonitis pain we can titrate pain medicines for that. Once pain management is titrated we should be able to get her out of the hospital either to home hospice or inpatient hospice. SUBJECTIVE: Tired, weak, no longer feels that she wishes to fight this infection or continue with the repeated surgeries and other procedures and aggressive supportive care that is required to treat this illness OBJECTIVE Vitals reviewed: Temperature 39.3 degrees overnight [employer], my review: sinus Exam: alert oriented skin warm dry, some palor resps not labored lungs diminished but otherwise clear BSs heart regular abd still with stool from drains limbs warm, no edema iv site ok Labs: hg down a bit to 7.4, wbc a bit higher sugars in good range overall past two days alb 1.8 Lab data: Stable CBC and metabolic panel Objective: Vital Signs Temp Pulse Resp BP Pulse Ox 36.6 C 100 15 120/54 L 94 03/19/18 11:33 03/19/18 11:33 03/19/18 11:33 03/19/18 11:33 03/19/18 11:33 Microbiology 03/11/18 13:30 Gram Stain - Final Abdomen - Other Anaerobic Culture - Final Laboratory Results 03/19/18 05:09 03/19/18 05:09 03/18/18 03/19/18 03/20/18 06:59 06:59 06:59 Intake Total 1845 2087 Output Total 3298 3385 Balance -307 -1408 PT 16.3 SEC (12.0-15.0) H 03/11/18 08:55 INR 1.29 (0.83-1.16) H 03/11/18 08:55 - Time Spent With Patient Time Spent with Patient: greater than 35 minutes Time Spent with Patient: Greater than 35 minutes spent on this patients care, greater than 50% of time spent counseling, educating, and coordinating care regarding the above mentioned plan. ICD10 Worksheet Patient Problems: Problems Problem Status Onset Surgical wound infection Acute Bowel obstruction Acute
[2018-03-19] MEDS: morphINE 10 MG/0.5 ML UDSYR PO PRN ×2 (16:09→17:55)
--- NOTE | 2018-03-19 16:15 | ASMTCMCOM ---
CM Note CM Note Notes: Discussed pt in rounds and with ID physician. Also spoke with pt's family in the waiting room. Pt decided today to stop aggressive treatment and move forward with hospice. Pt converted to comfort cares and pt's family is hoping she can stay in the hospital if end of life is imminent, at least until pain is managed. [facility] contacted per family's request. Pt's grandsons to arrive this evening to visit with patient. [employer] also contacted to support family and patient. CM to follow. D/C Plan: [facility] hosp[facility] at home or inpatient Date Signed: 03/19/2018 04:15 PM Electronically Signed By:Gracy Blanco
[2018-03-19 20:39] VITALS: BP 113/63
--- NOTE | 2018-03-20 09:40 | HOSPPROG ---
Hospitalist Progress Note Assessment/Plan: DIAGNOSES: #Intra-abdominal abscess s/p IR drain, small bowel fistula #Klebsiella sepsis - #Ovarian cancer s/p recent SBO with SB resection #Acute respiratory failure #Protein Calorie Malnutrition #hyperglycemia on TPN but with HgA1c of 5.8 #depression -stable #anemia, normocytic multifactorial with cancer, malnutrition, infection, mulitple surgeries ... At this point the patient has developed recurrent high fevers after her most recent surgery. She is becoming very tired and very unhappy with her lack of progress. At this point she has lost the desire to continue aggressive medical care in what she feels is really a losing barnett. She had extensive palliative discussions with her family and staff here today and at this time she and her family have requested that we discontinue antibiotics, discontinue other supportive care that might extend her life, remove her abdominal drains, and change to a palliative care approach to managing her situation. They have requested hospice involvement. PLANS: * I spent extensive time at the bedside with the patient and her family today and reviewed her medical condition and her choice for palliative care. I reviewed the likely progression which will involve worsening dehydration leading to obtundation and sleep, as well as likely progression of peritoneal infection with possible sepsis and hypotension. As she is fairly hydrated at this point from all the IVs, suspect that unless sepsis progresses rapidly she has several days left before she would come to the end of her time from dehydration. As long as we keep any peritonitis pain controlled I do not expect her to have significant discomfort otherwise. There could be some nausea that we need to treat but she has not had that today or yesterday. There are many other questions that she had which I answered for her today. She is comfortable with her situation in terms of our ability to keep her comfortable uncomfortable with her choice of palliative comfort measures care. SUBJECTIVE: Currently comfortable with minimal pain compared to yesterday Asks me if she has made the right choice OBJECTIVE Vitals reviewed: Some fever this morning low-grade so far, some tachycardia Exam: alert but appears fairly tired and weak, oriented skin warm dry, some palor resps not labored heart regular rapid PICC iv site ok Objective: Vital Signs Temp Pulse Resp BP Pulse Ox 37.7 C 121 H 16 113/63 94 03/19/18 20:00 03/19/18 20:00 03/19/18 20:00 03/19/18 20:00 03/19/18 20:00 Laboratory Results 03/19/18 05:09 03/19/18 05:09 03/19/18 03/20/18 03/21/18 06:59 06:59 06:59 Intake Total 2087 800 Output Total 3495 1000 Balance -1408 -200 PT 16.3 SEC (12.0-15.0) H 03/11/18 08:55 INR 1.29 (0.83-1.16) H 03/11/18 08:55 - Time Spent With Patient Time Spent with Patient: greater than 35 minutes Time Spent with Patient: Greater than 35 minutes spent on this patients care, greater than 50% of time spent counseling, educating, and coordinating care regarding the above mentioned plan. ICD10 Worksheet Patient Problems: Problems Problem Status Onset Surgical wound infection Acute Bowel obstruction Acute
[2018-03-20] MEDS: ONDANSETRON 4 MG/2 ML VIAL IVP PRN ×3 (10:40→17:52)
--- NOTE | 2018-03-20 10:56 | SOAPPROG ---
AJITH Progress Note Assessment/Plan: Assessment: 82yo F c Hx of ovarian Ca s/p small bowel resection, omentectomy, JUAN JOSE now c entero-atmospheric fistula(s) - decision made to pursue full comfort care yesterday. Abx stopped, nutrition held, JPs removed - EC fistula draining through the skin, VAC still in place - she is comfortable - I dont think this is going to be a quick process, she is actually drained pretty well from EC fistula standpoint. And despite stopping abx is not febrile or behaving septic. Plan: 03/19/18 11:18 03/19/18 11:19 03/20/18 10:54 Subjective: tired, pain is controlled Objective: Vital Signs Temp Pulse Resp BP Pulse Ox 37.7 C 121 H 16 113/63 94 03/19/18 20:00 03/19/18 20:00 03/19/18 20:00 03/19/18 20:00 03/19/18 20:00 Laboratory Results 03/19/18 05:09 03/19/18 05:09 03/19/18 03/20/18 03/21/18 05:59 05:59 05:59 Intake Total 2087 800 Output Total 3495 1000 Balance -1408 -200 PT 16.3 SEC (12.0-15.0) H 03/11/18 08:55 INR 1.29 (0.83-1.16) H 03/11/18 08:55 ICD10 Worksheet Patient Problems: Problems Problem Status Onset Surgical wound infection Acute Bowel obstruction Acute
[2018-03-21] MEDS: ONDANSETRON 4 MG/2 ML VIAL IVP PRN ×3 (01:12→12:33)
--- NOTE | 2018-03-21 09:32 | SOAPPROG ---
SOAP Progress Note Assessment/Plan: Assessment/Plan: 82 Y F c recent hx of laparotomy c bowel resection and adhesiolysis for SBO, now admitted with retroperitoneal abscess c communicating wound infection, s/p drainage, now s/p exlaparotomy c washout and exploration, exlaparotomy c washout and oversewing of anastomosis, washout with fascial closure and wound vac. Seen c Dr. Feliz. Decision made to pursue full comfort care. Abx stopped, nutrition held, JPs removed. EC fistula draining through the skin, VAC still in place. Bedside VAC change tomorrow if still in house. Could also do daily wet to dry dressings if patient and family not wanting VAC. Could be a long process as patient is drained pretty well from EC fistula standpoint. Despite stopping abx is not febrile or behaving septic. S: visiting with family. Smiling. Denies pain while at rest. O: alert, nad mmm ctab anteriorly rrr abd soft, vac to suction, wound drainage bag c thin feculent appearing liquid, light yellow brown. Appropriately tender. 03/21/18 09:26 Objective: Vital Signs Temp Pulse Resp BP Pulse Ox 37.7 C 121 H 16 113/63 94 03/19/18 20:00 03/19/18 20:00 03/19/18 20:00 03/19/18 20:00 03/19/18 20:00 Laboratory Results 03/19/18 05:09 03/19/18 05:09 03/20/18 03/21/18 03/22/18 05:59 05:59 05:59 Intake Total 800 Output Total 1000 550 Balance -200 -550 PT 16.3 SEC (12.0-15.0) H 03/11/18 08:55 INR 1.29 (0.83-1.16) H 03/11/18 08:55 ICD10 Worksheet Patient Problems: Problems Problem Status Onset Surgical wound infection Acute Bowel obstruction Acute
--- NOTE | 2018-03-21 10:59 | GOP ---
DATE OF OPERATION: 03/18/2018 SURGEON: Felix Feliz MD DECAY CONTROL OPERATOR: Marzena Lincoln, nurse practitioner. PREOPERATIVE DIAGNOSIS: Enteric fistula. POSTOPERATIVE DIAGNOSIS: Enteric fistula. PROCEDURE PERFORMED: Abdominal washout with enterotomy closure, abdominal wall closure, and wound va cuum-assisted closure placement. FINDINGS: Patient was found to have some fecal contamination in the right lower quadrant, but no obv ious fistula drainage could be demonstrated. The wound, overall, was improving dramatically. DESCRIPTION OF PROCEDURE: The patient was taken to the operating room where she received satisfactor y general endotracheal anesthesia, placed in supine position. The previous wound VAC and ABThera yaz ssings were removed. The abdomen was then irrigated vigorously with at least 3 liters of saline. Exploration of the right flank reveals some purulent drainage, but this was washed out easily. Small enterotomy site was visualized far laterally. This was closed with a 3-0 Prolene mattress suture, b ut it was not putting out any significant content. Two suction drains were placed in the retroperito neum on the right side and brought out through separate stab incisions. The abdominal fascia was the n closed with interrupted 0 PDS sutures, both in the vertical midline incision and the lateral extens ion. The far corner of the lateral wound was left open for possible drainage, and then, a wound VAC was placed on top of this. She tolerated the procedure quite well. Blood loss from the procedure wa s negligible. COMPLICATIONS: There were no complications. /[id number]/MODL
--- NOTE | 2018-03-21 12:24 | HOSPPROG ---
Hospitalist Progress Note Assessment/Plan: DIAGNOSES: #Intra-abdominal abscess s/p IR drain, small bowel fistula #Klebsiella sepsis - #Ovarian cancer s/p recent SBO with SB resection #Acute respiratory failure #Protein Calorie Malnutrition #hyperglycemia on TPN but with HgA1c of 5.8 #depression -stable #anemia, normocytic multifactorial with cancer, malnutrition, infection, mulitple surgeries ... The patient at this point is becoming fairly tachycardic with pulse in the 120s. She is looking more tired but remains awake and conversant. Her pain has been reasonably well controlled using morphine here so far with fairly infrequent dosing. Temperatures are getting as high as 37.7. PLANS: * Continue comfort measures * Hospice evaluation SUBJECTIVE: Some pain intermittently which is well controlled with morphine Is drinking small amounts of liquids mostly to wet her mouth Would like to try some applesauce Occasional nausea, no shortness of breath OBJECTIVE Vitals reviewed: Temperature 37.7 degrees, pulse 120s, respirations normal Exam: alert but appears fairly tired and weak, oriented skin warm dry, some palor resps not labored heart regular rapid PICC iv site ok Objective: Vital Signs Temp Pulse Resp BP Pulse Ox 37.7 C 121 H 16 113/63 94 03/19/18 20:00 03/19/18 20:00 03/19/18 20:00 03/19/18 20:00 03/19/18 20:00 Laboratory Results 03/19/18 05:09 03/19/18 05:09 03/20/18 03/21/18 03/22/18 06:59 06:59 06:59 Intake Total 800 Output Total 1000 550 Balance -200 -550 PT 16.3 SEC (12.0-15.0) H 03/11/18 08:55 INR 1.29 (0.83-1.16) H 03/11/18 08:55 ICD10 Worksheet Patient Problems: Problems Problem Status Onset Surgical wound infection Acute Bowel obstruction Acute
--- NOTE | 2018-03-21 12:59 | PDGENHP ---
History & Physical Chief Complaint: ABDOMINAL PAIN History of Present Illness: 82-YEAR-OLD FEMALE PRESENTS WITH RIGHT-SIDED ABDOMINAL PAIN. SHE IS 2 WEEKS STATUS POST BOWEL RESECTION FOR SEVERE SMALL- BOWEL OBSTRUCTION SECONDARY TO PAST SURGERIES FOR OVARIAN CANCER. AT THE PRESENT TIME SHE IS AFEBRILE BUT COMPLAINING OF FOR AMOUNT OF PAIN. CT SCAN REVEALS A RIGHT-SIDED ABDOMINAL ABSCESS AND SHE IS ADMITTED FOR EVALUATION Pertinent Past, Social, Family History: PAST HISTORY INCLUDES OVARIAN CANCER FOR WHICH SHE HAS HAD SEVERAL SURGERIES WELL PREVIOUS SMALL-BOWEL OBSTRUCTION. NO KNOWN ALLERGIES. MEDICATIONS WELL LISTED IN THE CHART. SOCIAL HISTORY SHE IS A NONSMOKER. FAMILY HISTORY NONCONTRIBUTORY. REVIEW OF SYSTEMS IS NONCONTRIBUTORY ON A FULL 10 POINT REVIEW EXCEPT RELATED TO THE HPI Relevant Physical Exam: GENERAL: ALERT BUT UNCOMFORTABLE 82 YEAR FEMALE NO ACUTE DISTRESS, AFEBRILE. HEENT NONICTERIC, PERRLA, NO ADENOPATHY. CHEST CLEAR AND SYMMETRIC. COR REGULAR RHYTHM. ABDOMEN SOFT WITH WELL-HEALED MIDLINE SCAR, TENDERNESS IN THE RIGHT FLANK AND SOME DRAINAGE FROM HER LOWER MIDLINE INCISION. EXTREMITIES FULL RANGE OF MOTION FULL PULSES. NEURO EXAM PHYSIOLOGIC AND SYMMETRIC. PSYCH EXAM ALERT, ORIENTED, COOPERATIVE Cardiorespiratory Assessment: IMPRESSION: ABDOMINAL ABSCESS POSSIBLY SECONDARY TO SMALL BOWEL ANASTOMOTIC LEAK. PLAN IS ADMIT FOR EVALUATION AND HOPEFULLY PERCUTANEOUS DRAINAGE. RISKS AND OPTIONS BEEN FULLY DISCUSSED WITH THE PATIENT AND HER FAMILY
--- NOTE | 2018-03-21 14:21 | ASMTCMCOM ---
CM Note CM Note Notes: [facility] [employer] cosmetic maker met with patient and family today. She says they are not "ready" to elect hospice. They say they would like patient to stay at [facility] with comfort measures. I relayed this to Dr Tovar who will speak with family so that they understand that this is not an appropriate course of care. Case Management will follow. Date Signed: 03/20/2018 01:55 PM Electronically Signed By:Jennifer Levin RN
--- NOTE | 2018-03-21 14:28 | PDIAF ---
- Diagnosis Diagnosis: Intra-abdominal abscess, ovarian cancer, depression Code Status: Do Not Resuscitate - Medication Management Discharge Medications: electronically signed and located in the Home Medication List. - Orders Services needed: Registered Nurse, Certified Charge Aide, Master Pigment Furnace Tender Isolation Type: Contact Isolation Oxygen: As needed Diet Recommendation: no restrictions on diet Diet Texture: Regular Texture Diet Wound Care Instructions: Has abdominal incision wound and drain wound, dress for comfort as indicated - Follow Up Care Current Providers and Referrals: Jenniffer Tinoco [Medical Doctor] - As per Instructions
--- NOTE | 2018-03-21 14:28 | PDDCSUM ---
Discharge Summary Discharge Summary: DISCHARGE DIAGNOSES: #Intra-abdominal abscess with enterotomy s/p IR drain, small bowel fistula #Klebsiella sepsis - #Ovarian cancer s/p recent SBO with SB resection #Acute respiratory failure #Protein Calorie Malnutrition #hyperglycemia on TPN but with HgA1c of 5.8 #depression -stable #anemia, normocytic multifactorial with cancer, malnutrition, infection, mulitple surgeries ... CONSULTANTS: Dr. Felix Cool PROCEDURES: Multiple laparotomy procedures for drainage of abscess and repairs of enterotomy Placement and removal of abdominal drains Repair of wound dehiscence HOSPITAL COURSE SUMMARY: This patient who has known ovarian cancer had developed recently a small-bowel obstruction for which she had laparotomy and small-bowel resection with hernia repair. She did well initially but came back into the hospital weak and ill with sepsis and abdominal pain. She found to have an intra-abdominal abscess. On initial exploration with surgery there was abscess and some enterotomies noted and there was repair of enterotomy. The patient subsequently had ongoing support in the intensive care unit. Her course was quite complicated and she required multiple surgeries for ongoing abscess, stool drainage into the peritoneal cavity, wound dehiscence. She did have respiratory failure at 1 point and ventrally recovered from that. She did not require mechanical ventilation. Patient's course her showed a significant lack of progression with ongoing fevers and fluid collections in the abdomen. She had good antibiotic selection her illness and the isolated organisms. It was unclear how well the patient would recover from this illness. There was quite a lot of discussion between the care team and the patient and her family about her prognosis, her progress, and her multiple surgeries. She came to a point where she decided she wanted no further surgeries. On further discussion after this the patient decided that she did not want to try and treat this illness anymore and she requested that we remove her abdominal drains and stop her antibiotics and other treatments for her acute illness and apply only comfort measures. These in discussions involved multiple care team members including the palliative care team as well as multiple family members with the patient. All were in agreement. Her antibiotics were stopped her drains removed moved and other supportive care removed and palliative care orders were placed. After this the patient had reasonably good pain relief here. She has mild fevers and is developing significant tachycardia which are likely caused by infection and dehydration. Is felt that most likely what will happen as she will get more dehydrated and eventually succumb to dehydration although she could have worsening of infection. The patient was seen by the team from [facility] hospice and she was transferred to the inpatient care center at their facility today. PENDING TEST RESULTS: None MEDICATION CHANGES: At this point the patient has been changed to only receiving comfort measures medicine guy including some pain medicines, Ativan, nausea medicines, her antidepressant FOLLOW-UP PLAN: She is transferred to true inpatient hospice center today for palliative care Greater than 35 minutes bedside and care coordination time today
--- NOTE | 2018-03-21 14:37 | ASMTLACE ---
LACE Length of stay for Answers: 14 days or more current admission Acuity / Level of Answers: Yes Care: Did the patient have an inpatient admission? Comorbidities - select Answers: Any tumor (including all that apply lymphoma or leukemia) Other Notes: HTN # of Emergency department Answers: 3-4 visits in the last 6 months Social determinants Answers: Mental health diagnosis (anxiety, depression, pers onality disorders, etc.) Score: 19 Date Signed: 03/21/2018 02:36 PM Electronically Signed By:Niki Vogel RN
--- NOTE | 2018-03-21 14:39 | ASMTDCNOTE ---
Case Management Discharge Discharge Order Complete? Answers: Yes Patient to Obtain Answers: Other Notes: Hospice Medications Transportation Arranged Answers: [facility] Transport will Pick (Date 03/21/2018 04:00 PM & Time) Case Management Transport Answers: Yes Form Complete Faxed Final Orders Answers: Yes Family Notified Answers: Yes Discharge Comments Notes: Patient to transfer to inpatient hospice, transportation arrived. Date Signed: 03/21/2018 02:39 PM Electronically Signed By:Niki Vogel RN
--- NOTE | 2018-03-21 14:42 | ASMTCMCOM ---
CM Note CM Note Notes: Patient to discharge to hospice this pm at 16:00. Final orders hard faxed. Transport arranged per hospice team. PCS form and face sheet to . Plan: To inpatient hospice. Date Signed: 03/21/2018 02:41 PM Electronically Signed By:Niki Vogel RN
== END 2018-03-21 16:41 | disposition hospice, home (50) | DRG 856 ==
LOC: EDUNIT# → F2W 21:35 → OBSVTOIN 21:56 → F2N 03-06 17:56 → F3E 03-13 01:02 → F2N 03-13 11:20 → F1N 03-19 17:06
PROVIDERS: ADMIT Internal Medicine; ATTEND Internal Medicine
PROC: 0W9H3ZX Drainage of Retroperitoneum, Percutaneous Approach, Diagnostic (ICD-10-PCS; 2018-03-06)
PROC: 02H633Z Insertion of Infusion Device into Right Atrium, Percutaneous Approach (ICD-10-PCS; 2018-03-07)
PROC: 0W9H00Z Drainage of Retroperitoneum with Drainage Device, Open Approach (ICD-10-PCS; principal; 2018-03-11 12:15)
PROC: 0WQN0ZZ Repair Female Perineum, Open Approach (ICD-10-PCS; 2018-03-13)
PROC: 0W9H00Z Drainage of Retroperitoneum with Drainage Device, Open Approach (ICD-10-PCS; 2018-03-18)
PROC: 0DQ80ZZ Repair Small Intestine, Open Approach (ICD-10-PCS; 2018-03-18)
DX: T81.43XA Infection following a procedure, organ and space surgical site, initial encounter (principal); A41.89 Other specified sepsis; K65.1 Peritoneal abscess; J96.00 Acute respiratory failure, unspecified whether with hypoxia or hypercapnia; C56.9 Malignant neoplasm of unspecified ovary; E46 Unspecified protein-calorie malnutrition; E86.0 Dehydration; B96.1 Klebsiella pneumoniae [K. pneumoniae] as the cause of diseases classified elsewhere; F32.9 Major depressive disorder, single episode, unspecified; R73.9 Hyperglycemia, unspecified; D64.9 Anemia, unspecified; I10 Essential (primary) hypertension; Z90.49 Acquired absence of other specified parts of digestive tract
CPT/HCPCS: 96365; 97110-GP; 97116-GP; 97162-GP; 97166-GO; 97530-GO; 97530-GP; 97535-GO; C1751; G0515-GO; G8978-GP-CK; G8978-GP-CL; G8979-GP-CJ; G8987-GO-CK; G8988-GO-CJ; J0696; J1170; J1335; J1450; J1650; J1815; J1885; J1940; J2060; J2250; J2270; J2310; J2405; J2543; J2550; J2704; J3010; J3430; J7613; Q9967